=== PATIENT | male | born 1940 | race Caucasian/White ===

== ENCOUNTER 2016-07-07 15:03 | Inpatient (IN) | payer MEDICARE, OTHER ==
[~2016-07-07] VITALS: Ht 160 cm; Wt 82.4 kg
[~2016-07-07 15:03] MED LIST: ASPI-664 PO; BICS PO; CALC0.255 PO; FER325 PO; LANT3I SC; LEVO25TA9 PO; PRAV10TA43 PO; SITA25TA3 PO; TERA5CAP3 PO
[2016-07-07 16:47] VITALS: Ht 160 cm; Wt 82.4 kg
[2016-07-07 16:58] VITALS: BP 113/53; PULSE 64; RESP 20
[2016-07-07] MEDS ORDERED: FER325 PO (17:05)
[2016-07-07] MEDS ORDERED: AMIO200T2 PO (17:05)
[2016-07-07] MEDS ORDERED: APIX2.5T PO (17:05)
[2016-07-07] MEDS ORDERED: FURO40TA4 PO (17:05)
[2016-07-07 19:46] VITALS: BP 112/53; RESP 18
--- NOTE | 2016-07-07 19:51 | QN ---
Documentation Comment [id number] DARA CAVANAUGH MD Jul 07, 2016 19:51
[2016-07-07 20:23] LABS: INR 1.7; PROTIME 20.1 Sec (12.2-14.2); PT RATIO 1.6
[2016-07-07 20:24] LABS: PARTIAL THROMBOPLASTIN TIME 45.2 Sec (25.0-35.0)
[2016-07-07 20:25] LABS: ALBUMIN 3.4 g/dl (3.3-4.9)
[2016-07-07 20:28] LABS: BILIRUBIN,INDIRECT 0.3 mg/dl (0-1.1); BILIRUBIN,TOTAL 0.3 mg/dl (0.2-1.3); CREATININE 4.09 mg/dl (0.61-1.24)
[2016-07-07 20:29] LABS: ALBUMIN/GLOBULIN RATIO 0.89; CALCIUM 8.1 mg/dl (8.4-10.2); TOTAL PROTEIN 7.2 g/dl (6.1-8.1)
[2016-07-07 20:32] LABS: C-REACTIVE PROTEIN 3.9 mg/dl (0.0-0.9)
--- NOTE | 2016-07-07 20:34 | HP ---
DATE OF ADMISSION: 07/07/2016 HISTORY OF PRESENT ILLNESS: Mr. Mateo Orr was seen in the [facility] and noted to have a left leg wound and right toe infection. The patient is being admitted for soft tissue infection on the left leg. PAST MEDICAL HISTORY: Positive for diabetes mellitus, hypertension, CKD, AICD device placement, anemia, dyslipidemia, noncompliance. The patient's other history includes the patient has history of history of CAD, history of PVD. ALLERGY HISTORY: NEGATIVE. FAMILY HISTORY: Negative. SOCIAL HISTORY: Negative. MEDICATION HISTORY: At home, patient is at home is on: 1. Amiodarone. 2. Apixaban. 3. Aspirin. 4. Calcitriol. 5. Iron. 6. mvi 7. Lasix. 8. Insulin. 9. Levothyroxine. 10. Pravachol. 11. Januvia. 12. Terazosin. REVIEW OF SYSTEMS: HEENT: Unremarkable. RESPIRATORY: Unremarkable. CARDIOVASCULAR: Unremarkable. ABDOMEN: Unremarkable. EXTREMITIES: As mentioned above. CENTRAL NERVOUS SYSTEM: Unremarkable. PHYSICAL EXAMINATION: GENERAL: The patient is an overweight male, awake, alert. VITAL SIGNS: Pulse 60, blood pressure 120/53. HEAD: Atraumatic, normocephalic. Pupils equal, reactive to light. NECK: Supple. No JVD. LUNGS: Clear. CARDIOVASCULAR: S1, S2 are normal. ABDOMEN: Soft, nontender. Bowel sounds positive. No palpable mass or hepatosplenomegaly. Obesity noted. EXTREMITIES: The patient has dry gangrene of the right foot toe noted. The patient has a left leg wound noted. The patient has hyperpigmentation of the left leg. LABORATORY DATA: Not available from this admission. IMPRESSION: 1. Left leg wound. 2. Hypertension. 3. Diabetes mellitus. 4. Chronic kidney disease. 5. Coronary artery disease. 6. Atherosclerotic heart disease. 7. Dyslipidemia. 8. Obesity. 9. Peripheral vascular disease. 10. Noncompliance. PLAN: To continue diabetic, renal diet. Sliding scale. Continue home medications. The patient will also have antibiotics. Orders were done. Dictated By: DARA CAVANAUGH MD BS/NTS Conf#: [id number] DID#: [id number] [facility]
[2016-07-07] MEDS: INSULIN ASPART [NOVOLOG] 3 ML PEN SC SCH (21:00)
[2016-07-07] MEDS: LINAGLIPTIN 5 MG TABLET PO SCH (21:45)
[2016-07-07] MEDS: APIXABAN 5 MG TABLET PO SCH (21:46)
[2016-07-07] MEDS: FERROUS SULFATE (EC) 325 MG TAB PO SCH (21:46)
[2016-07-07] MEDS: TERAZOSIN 5 MG CAP PO SCH (21:47)
[2016-07-07] MEDS: FUROSEMIDE 40 MG TAB PO SCH (21:47)
[2016-07-07] MEDS: ATORVASTATIN 10 MG TAB PO SCH (21:48)
[2016-07-07] MEDS: ACCUCHECK XX SCH (21:48)
[2016-07-07 23:02] LABS: ADD UMIC YES; URINE BILIRUBIN (Dip) NEGATIVE (NEGATIVE); URINE BLOOD (Dip) 1+ (NEGATIVE); URINE COLOR LT. YELLOW (YELLOW); URINE GLUCOSE (Dip) NEGATIVE (NEGATIVE); URINE KETONES (Dip) NEGATIVE (NEGATIVE); URINE LEUKOCYTE ESTERASE (Dip) 3+ (NEGATIVE); URINE NITRITE (Dip) NEGATIVE (NEGATIVE); URINE TOTAL PROTEIN (Dip) NEGATIVE (NEGATIVE); URINE UROBILINOGEN (Dip) 0.2 E.U./dL (0.1-1.0)
[2016-07-08] MEDS ORDERED: PIPER-TAZO 3.375 GM IV (PMX) 100 ML IVPB SCH
[2016-07-08] MEDS: PIPER-TAZO 2.25 GM (PMX) 50 ML IVPB SCH ×4 (00:07→21:22)
[2016-07-08 00:18] LABS: RED BLOOD COUNT 1.69 10^6/ul (4.70-6.10); UNCORRECTED WBC 3.8 10^3/ul (4.8-10.8); WHITE BLOOD COUNT 3.8 10^3/ul (4.8-10.8)
[2016-07-08 00:19] LABS: HEMOGLOBIN 5.8 g/dl (14.0-18.0)
[2016-07-08 00:20] LABS: HEMATOCRIT 17.6 % (42.0-52.0); MEAN CORPUSCULAR HEMOGLOBIN 34.3 pg (29.0-33.0); MEAN CORPUSCULAR VOLUME 104.1 fl (82.0-101.0)
[2016-07-08 00:21] LABS: BASOPHILS % 0.5 % (0.0-2.0); EOSINOPHILS # 0.3 10^3/ul (0.0-0.5); EOSINOPHILS % 7.4 % (0.0-7.0); LYMPHOCYTES # 0.7 10^3/ul (0.8-2.9); LYMPHOCYTES % 18.4 % (15.0-51.0); MEAN PLATELET VOLUME 10.2 fl (7.4-10.4); MONOCYTE # 0.2 10^3/ul (0.3-0.9); MONOCYTES % 5.8 % (0.0-11.0); NEUTROPHIL # 2.6 10^3/ul (1.6-7.5); NEUTROPHILS % 67.4 % (39.0-77.0); PLATELET COUNT 91 10^3/UL (140-440); RED CELL DISTRIBUTION WIDTH 14.9 % (11.5-14.5)
[2016-07-08] MEDS ORDERED: ACCUCHECK XX SCH (02:00)
[2016-07-08 07:53] VITALS: BP 112/56; RESP 20
[2016-07-08 07:55] VITALS: BP 112/59; PULSE 64; RESP 18
[2016-07-08] MEDS: INSULIN ASPART [NOVOLOG] 3 ML PEN SC SCH ×4 (08:00→20:24)
--- NOTE | 2016-07-08 08:16 | RADRPT ---
PROCEDURE: Tibia-fibula x-ray CLINICAL INDICATION: Cellulitis.. TECHNIQUE: AP and lateral views of the left tibia and fibula. COMPARISON: 06/23/2019 FINDINGS: No evidence of fracture or dislocation. The bones are normal mineralization no cortical destruction . No radiopaque foreign body or subcutaneous gas. Unremarkable. IMPRESSION: No fracture or dislocation. No radiopaque foreign body. RPTAT:AAJJ Physician Sisi Date Time Electronically viewed and signed by Stevo Lacey Physician on 07/08/2016 08:16 LAUREN/
[2016-07-08 08:45] VITALS: BP 121/57; PULSE 68; RESP 19
[2016-07-08] MEDS ORDERED: GLUCOSE GEL 15 GRAM TUBE BUCCAL PRN (09:30)
[2016-07-08] MEDS ORDERED: GLUCOSE GEL 15 GRAM TUBE PO PRN ×2 (09:30)
[2016-07-08] MEDS ORDERED: DEXTROSE 50% 50 ML SYRINGE IV PRN (09:30)
[2016-07-08] MEDS ORDERED: GLUCAGON 1 MG INJ IM PRN (09:30)
[2016-07-08 09:45] VITALS: BP 120/61; PULSE 68; RESP 18
[2016-07-08] MEDS: AMIODARONE 200 MG TAB PO SCH (09:55)
[2016-07-08] MEDS: APIXABAN 5 MG TABLET PO SCH ×2 (09:55→21:17)
[2016-07-08] MEDS: LEVOTHYROXINE 25 MCG TAB PO SCH (09:55)
[2016-07-08] MEDS: CALCITRIOL 0.25 MCG CAP PO SCH (09:55)
[2016-07-08] MEDS: FERROUS SULFATE (EC) 325 MG TAB PO SCH ×2 (09:55→21:18)
[2016-07-08] MEDS: LINAGLIPTIN 5 MG TABLET PO SCH (09:55)
[2016-07-08] MEDS: FUROSEMIDE 40 MG TAB PO SCH ×2 (09:56→21:18)
[2016-07-08] MEDS: COLLAGENASE 30 GM TUBE TOP SCH (09:56)
[2016-07-08] MEDS: INSULIN GLARGINE [LANtus] 3 ML PEN SC SCH (09:59)
--- NOTE | 2016-07-08 13:55 | PN ---
Date/Time of Note Date/Time of Note DATE: 07/08/16 TIME: 13:54 Assessment/Plan VTE Prophylaxis VTE Prophylaxis Intervention: other Lines/Catheters [facility] Saline Lock Urinary Cath still in place: No Assessment/Plan Chief Complaint/Hosp Course IMPRESSION: 1. Left leg wound. 2. Hypertension. 3. Diabetes mellitus. 4. Chronic kidney disease.4 5. Coronary artery disease. 6. Atherosclerotic heart disease. 7. Dyslipidemia. 8. Obesity. 9. Peripheral vascular disease. 10. Noncompliance. 11 anemia plan prbc antibiotic Problems: Subjective 24 Hr Interval Summary ENT: no complaints Respiratory: no complaints Gastrointestinal: no complaints Genitourinary: no complaints Exam/Review of Systems Vital Signs Vitals Vital Signs Date Time Temp Pulse Resp B/P Pulse Ox O2 Delivery O2 Flow Rate FiO2 07/08/16 09:45 98.2 68 18 120/61 99 Room Air Intake and Output 07/07/16 07/07/16 07/08/16 15:00 23:00 07:00 Intake Total 1000 ml Output Total 650 ml Balance 350 ml Exam Neck: supple Respiratory: clear to auscultation Cardiovascular: regular rate and rhythm Gastrointestinal: soft Skin: other (leg wound+) Results Result Diagram: 07/07/16214407/07/161950 Results 24 hrs Laboratory Tests Test 07/07/16 19:31 07/07/16 19:51 07/07/16 21:45 07/07/16 22:10 Bedside Glucose 102 Activated Partial Thromboplast Time 45.2 H Alanine Aminotransferase (ALT/SGPT) 21 Albumin 3.4 Albumin/Globulin Ratio 0.89 Alkaline Phosphatase 142 H Anion Gap 17 H Aspartate Amino Transf (AST/SGOT) 21 Blood Urea Nitrogen 64 H C-Reactive Protein 3.9 H Calcium Level 8.1 L Carbon Dioxide Level 24 Chloride Level 101 Creatinine 4.09 H Direct Bilirubin 0.00 Globulin 3.80 H Glucose Level 83 INR International Normalized Ratio 1.70 Indirect Bilirubin 0.3 Potassium Level 4.0 Prothrombin Time 20.1 H Prothrombin Time Ratio 1.6 Sodium Level 138 Total Bilirubin 0.3 Total Protein 7.2 Basophils # 0.0 Basophils % 0.5 Eosinophils # 0.3 Eosinophils % 7.4 H Erythrocyte Sedimentation Rate 130 H Hematocrit 17.6 #L Hemoglobin 5.8 #*L Hemoglobin A1c Lymphocytes # 0.7 L Lymphocytes % 18.4 Mean Corpuscular Hemoglobin 34.3 H Mean Corpuscular Hemoglobin Concent 33.0 Mean Corpuscular Volume 104.1 H Mean Platelet Volume 10.2 Monocytes # 0.2 L Monocytes % 5.8 Neutrophils # 2.6 Neutrophils % 67.4 Nucleated Red Blood Cells # 0.0 Nucleated Red Blood Cells % 0.0 Platelet Count 91 #L Red Blood Count 1.69 #L Red Cell Distribution Width 14.9 #H White Blood Count 3.8 #L Urine Bilirubin NEGATIVE Urine Clarity CLEAR Urine Color LT. YELLOW Urine Glucose NEGATIVE Urine Hemoglobin 1+ H Urine Ketones NEGATIVE Urine Leukocyte Esterase 3+ H Urine Microscopic RBC 5-10 Urine Microscopic WBC >200 Urine Nitrite NEGATIVE Urine Specific [place] 1.010 Urine Total Protein NEGATIVE Urine Urobilinogen 0.2 E.U./dL Urine pH 5.5 Test 07/08/16 08:07 07/08/16 08:42 07/08/16 09:07 07/08/16 11:44 Bedside Glucose 66 L 84 142 87 Medications Medications Current Medications Collagenase (Santyl) 1 applic DAILY TOP Last administered on 07/08/16 09:56; Admin Dose 1 APPLIC; Start 07/08/16 at 09:00 Amiodarone HCl (Cordarone) 200 mg DAILY PO Last administered on 07/08/16 09:55 ; Admin Dose 200 MG; Start 07/08/16 at 09:00 Apixaban (Eliquis) 2.5 mg BID PO Last administered on 07/08/16 09:55; Admin Dose 2.5 MG; Start 07/07/16 at 21:00 Calcitriol (Rocaltrol) 0.25 mcg DAILY PO Last administered on 07/08/16 09:55; Admin Dose 0.25 MCG; Start 07/08/16 at 09:00 Ferrous Sulfate (Ferrous Sulfate (Ec)) 325 mg BID PO Last administered on 09:55; Admin Dose 325 MG; Start 07/07/16 at 21:00 Furosemide (Lasix) 40 mg BID PO Last administered on 07/08/16 09:56; Admin Dose 40 MG; Start 07/07/16 at 21:00 Insulin Glargine (Lantus) 20 unit QAM SC Last administered on 07/08/16 09:59; Admin Dose 20 UNIT; Start 07/08/16 at 09:00 Levothyroxine Sodium (Synthroid) 25 mcg DAILY PO Last administered on 09:55; Admin Dose 25 MCG; Start 07/08/16 at 09:00 Terazosin HCl (Hytrin) 5 mg HS PO Last administered on 07/07/16 21:47; Admin Dose 5 MG; Start 07/07/16 at 21:00 Atorvastatin Calcium (Lipitor) 10 mg DAILY@21 PO Last administered on 21:48; Admin Dose 10 MG; Start 07/07/16 at 21:00 Linagliptin (Tradjenta) 5 mg DAILY PO Last administered on 07/08/16 09:55; Admin Dose 5 MG; Start 07/07/16 at 19:30 Diagnostic Test (Pha) (Accucheck) 1 ea 02 XX ; Start 07/08/16 at 02:00 Miscellaneous Information 1 ea NOTE XX ; Start 07/08/16 at 09:30 Glucose (Glutose) 15 gm Q15M PRN PO DECREASED GLUCOSE; Start 07/08/16 at 09:30 Glucose (Glutose) 22.5 gm Q15M PRN PO DECREASED GLUCOSE; Start 07/08/16 at 09: 30 Dextrose (D50w Syringe) 25 ml Q15M PRN IV DECREASED GLUCOSE; Start 07/08/16 at 09:30 Dextrose (D50w Syringe) 50 ml Q15M PRN IV DECREASED GLUCOSE; Start 07/08/16 at 09:30 Glucagon (Glucagen) 1 mg Q15M PRN IM DECREASED GLUCOSE; Start 07/08/16 at 09:30 Glucose 15 gm 15 gm Q15M PRN BUCCAL DECREASED GLUCOSE; Start 07/08/16 at 09:30 Piperacillin Sod/ Tazobactam Sod (Zosyn 2.25gm/ 50ml (Pmx)) 50 ml @ 100 mls/hr Q8 IVPB ; Start 07/08/16 at 14:00 DARA CAVANAUGH MD Jul 08, 2016 13:55
[2016-07-08 15:48] LABS: BASOPHILS % 0.4 % (0.0-2.0); EOSINOPHILS # 0.2 10^3/ul (0.0-0.5); EOSINOPHILS % 5.6 % (0.0-7.0); HEMOGLOBIN 7.7 g/dl (14.0-18.0); LYMPHOCYTES # 0.5 10^3/ul (0.8-2.9); LYMPHOCYTES % 12.7 % (15.0-51.0); MEAN CORPUSCULAR HEMOGLOBIN 33.5 pg (29.0-33.0); MEAN CORPUSCULAR HGB CONC 34.9 g/dl (32.0-37.0); MEAN CORPUSCULAR VOLUME 96.1 fl (82.0-101.0); MEAN PLATELET VOLUME 6.5 fl (7.4-10.4); MONOCYTE # 0.2 10^3/ul (0.3-0.9); MONOCYTES % 5.6 % (0.0-11.0); NEUTROPHIL # 3.1 10^3/ul (1.6-7.5); NEUTROPHILS % 75.7 % (39.0-77.0); PLATELET COUNT 96 10^3/UL (140-440); RED BLOOD COUNT 2.29 10^6/ul (4.70-6.10); RED CELL DISTRIBUTION WIDTH 17.6 % (11.5-14.5)
[2016-07-08 15:51] LABS: CONDITION 1; LH ANALYZER COMMENTS 1
[2016-07-08 15:59] LABS: POTASSIUM 4.2 mmol/L (3.5-5.1)
[2016-07-08 16:02] LABS: CREATININE 3.86 mg/dl (0.61-1.24)
[2016-07-08 16:22] LABS: OVALOCYTES 2+; PLATELET ESTIMATE PLT APPEAR DECREASED
[2016-07-08 20:20] VITALS: BP 120/60; RESP 19
[2016-07-08] MEDS: ATORVASTATIN 10 MG TAB PO SCH (21:17)
[2016-07-08] MEDS: TERAZOSIN 5 MG CAP PO SCH (21:22)
--- NOTE | 2016-07-08 23:45 | CONS ---
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 Patient will be monitored in-house. Thank you very much for the consultation. Consultation Date/Type/Reason Admit Date/Time Jul 07, 2016 at 16:07 Hx of Present Illness Thank you very much for involving me in the care of this patient. As you very well know this is a male patient who has multiple medical problems including diabetes mellitus, hypertension, CKD, anemia, dyslipidemia and apparently is noncompliant with his diabetes who has been admitted to the hospital with soft tissue infection of his left leg. I have been consulted to evaluate the left lower extremity. Patient is normally seen and followed at the amputation prevention clinic and was found to have left leg wound and right toe infection. ENT: no complaints Respiratory: no complaints Gastrointestinal: no complaints Genitourinary: no complaints Past Medical History As per history of present illness. Past Surgical History As per history of present illness. Social History As per history of present illness. Smoking Status: Never smoker Exam/Review of Systems Vital Signs Vitals Vital Signs Date Time Temp Pulse Resp B/P Pulse Ox O2 Delivery O2 Flow Rate FiO2 07/08/16 20:20 98.5 66 19 120/60 98 07/08/16 09:45 Room Air Intake and Output 07/07/16 07/07/16 07/08/16 15:00 23:00 07:00 Intake Total 1000 ml Output Total 650 ml Balance 350 ml Exam Patient is no acute distress laying supine in bed. Left lower extremity cellulitis and open wound present. There is malodor present. Edema noted with erythema of the leg. Decreased sensation to sharp dull vibratory and temperature stimuli. Labs and imaging was reviewed. Results Result Diagram: 07/08/16 1536 07/08/16 1536 Results 24 hrs Laboratory Tests Test 07/08/16 08:07 07/08/16 08:42 07/08/16 09:07 07/08/16 11:44 Bedside Glucose 66 L 84 142 87 Test 07/08/16 15:36 07/08/16 16:56 07/08/16 20:08 Anion Gap 17 H Basophils # 0.0 Basophils % 0.4 Blood Morphology Comment Blood Urea Nitrogen 64 H Calcium Level 8.0 L Carbon Dioxide Level 24 Chloride Level 101 Creatinine 3.86 H Differential Comment AUTO w/SCAN Eosinophils # 0.2 Eosinophils % 5.6 Glucose Level 74 Hematocrit 22.0 #L Hemoglobin 7.7 #L Lymphocytes # 0.5 L Lymphocytes % 12.7 L Mean Corpuscular Hemoglobin 33.5 H Mean Corpuscular Hemoglobin Concent 34.9 Mean Corpuscular Volume 96.1 Mean Platelet Volume 6.5 #L Monocytes # 0.2 L Monocytes % 5.6 Neutrophils # 3.1 Neutrophils % 75.7 Nucleated Red Blood Cells # 0.0 Nucleated Red Blood Cells % 0.0 Ovalocytes 2+ Platelet Count 96 L Platelet Estimate PLT APPEAR DECREASED Potassium Level 4.2 Red Blood Count 2.29 #L Red Cell Distribution Width 17.6 H Sodium Level 138 White Blood Count 4.0 L Bedside Glucose 75 104 Medications Medications Current Medications Collagenase (Santyl) 1 applic DAILY TOP Last administered on 07/08/16 09:56; Admin Dose 1 APPLIC; Start 07/08/16 at 09:00 Amiodarone HCl (Cordarone) 200 mg DAILY PO Last administered on 07/08/16 09:55 ; Admin Dose 200 MG; Start 07/08/16 at 09:00 Apixaban (Eliquis) 2.5 mg BID PO Last administered on 07/08/16 21:17; Admin Dose 2.5 MG; Start 07/07/16 at 21:00 Calcitriol (Rocaltrol) 0.25 mcg DAILY PO Last administered on 07/08/16 09:55; Admin Dose 0.25 MCG; Start 07/08/16 at 09:00 Ferrous Sulfate (Ferrous Sulfate (Ec)) 325 mg BID PO Last administered on 21:18; Admin Dose 325 MG; Start 07/07/16 at 21:00 Furosemide (Lasix) 40 mg BID PO Last administered on 07/08/16 21:18; Admin Dose 40 MG; Start 07/07/16 at 21:00 Insulin Glargine (Lantus) 20 unit QAM SC Last administered on 07/08/16 09:59; Admin Dose 20 UNIT; Start 07/08/16 at 09:00 Levothyroxine Sodium (Synthroid) 25 mcg DAILY PO Last administered on 09:55; Admin Dose 25 MCG; Start 07/08/16 at 09:00 Terazosin HCl (Hytrin) 5 mg HS PO Last administered on 07/08/16 21:22; Admin Dose 5 MG; Start 07/07/16 at 21:00 Atorvastatin Calcium (Lipitor) 10 mg DAILY@21 PO Last administered on 21:17; Admin Dose 10 MG; Start 07/07/16 at 21:00 Linagliptin (Tradjenta) 5 mg DAILY PO Last administered on 07/08/16 09:55; Admin Dose 5 MG; Start 07/07/16 at 19:30 Diagnostic Test (Pha) (Accucheck) 1 ea 02 XX ; Start 07/08/16 at 02:00 Miscellaneous Information 1 ea NOTE XX ; Start 07/08/16 at 09:30 Glucose (Glutose) 15 gm Q15M PRN PO DECREASED GLUCOSE; Start 07/08/16 at 09:30 Glucose (Glutose) 22.5 gm Q15M PRN PO DECREASED GLUCOSE; Start 07/08/16 at 09: 30 Dextrose (D50w Syringe) 25 ml Q15M PRN IV DECREASED GLUCOSE; Start 07/08/16 at 09:30 Dextrose (D50w Syringe) 50 ml Q15M PRN IV DECREASED GLUCOSE; Start 07/08/16 at 09:30 Glucagon (Glucagen) 1 mg Q15M PRN IM DECREASED GLUCOSE; Start 07/08/16 at 09:30 Glucose 15 gm 15 gm Q15M PRN BUCCAL DECREASED GLUCOSE; Start 07/08/16 at 09:30 Piperacillin Sod/ Tazobactam Sod (Zosyn 2.25gm/ 50ml (Pmx)) 50 ml @ 100 mls/hr Q8 IVPB Last administered on 07/08/16 21:22; Admin Dose 100 MLS/HR; Start at 14:00 SHONDA TOLEDO DPM Jul 08, 2016 23:45
[2016-07-09] MEDS: ACCUCHECK XX SCH (02:59)
[2016-07-09] MEDS: PIPER-TAZO 2.25 GM (PMX) 50 ML IVPB SCH ×3 (05:47→21:04)
[2016-07-09 05:51] LABS: BASOPHILS % 0.5 % (0.0-2.0); EOSINOPHILS # 0.1 10^3/ul (0.0-0.5); EOSINOPHILS % 2.4 % (0.0-7.0); HEMATOCRIT 22.7 % (42.0-52.0); HEMOGLOBIN 7.9 g/dl (14.0-18.0); LYMPHOCYTES # 0.4 10^3/ul (0.8-2.9); LYMPHOCYTES % 10.8 % (15.0-51.0); MEAN CORPUSCULAR HEMOGLOBIN 33.7 pg (29.0-33.0); MEAN CORPUSCULAR HGB CONC 34.9 g/dl (32.0-37.0); MEAN CORPUSCULAR VOLUME 96.5 fl (82.0-101.0); MEAN PLATELET VOLUME 7.6 fl (7.4-10.4); MONOCYTE # 0.2 10^3/ul (0.3-0.9); MONOCYTES % 4.8 % (0.0-11.0); NEUTROPHIL # 3.2 10^3/ul (1.6-7.5); NEUTROPHILS % 81.5 % (39.0-77.0); PLATELET COUNT 90 10^3/UL (140-440); RED BLOOD COUNT 2.35 10^6/ul (4.70-6.10); RED CELL DISTRIBUTION WIDTH 17.6 % (11.5-14.5)
[2016-07-09 06:10] LABS: CONDITION 1; LH ANALYZER COMMENTS 1
[2016-07-09 06:10] LABS: ALBUMIN 3.5 g/dl (3.3-4.9)
[2016-07-09 06:11] LABS: POTASSIUM 3.7 mmol/L (3.5-5.1)
[2016-07-09 06:13] LABS: ALBUMIN/GLOBULIN RATIO 0.97; BILIRUBIN,INDIRECT 0.4 mg/dl (0-1.1); BILIRUBIN,TOTAL 0.4 mg/dl (0.2-1.3); CALCIUM 8.3 mg/dl (8.4-10.2); CREATININE 3.94 mg/dl (0.61-1.24); TOTAL PROTEIN 7.1 g/dl (6.1-8.1)
[2016-07-09 07:50] VITALS: BP 112/58; RESP 20
[2016-07-09] MEDS: INSULIN ASPART [NOVOLOG] 3 ML PEN SC SCH ×4 (08:00→20:56)
[2016-07-09] MEDS: LINAGLIPTIN 5 MG TABLET PO SCH (08:41)
[2016-07-09] MEDS: FERROUS SULFATE (EC) 325 MG TAB PO SCH ×2 (08:41→20:48)
[2016-07-09] MEDS: LEVOTHYROXINE 25 MCG TAB PO SCH (08:41)
[2016-07-09] MEDS: CALCITRIOL 0.25 MCG CAP PO SCH (08:41)
[2016-07-09] MEDS: FUROSEMIDE 40 MG TAB PO SCH ×2 (08:42→20:48)
[2016-07-09] MEDS: APIXABAN 5 MG TABLET PO SCH ×2 (08:42→20:44)
[2016-07-09] MEDS: AMIODARONE 200 MG TAB PO SCH (08:42)
[2016-07-09] MEDS: INSULIN GLARGINE [LANtus] 3 ML PEN SC SCH ×2 (08:43→09:00)
[2016-07-09] MEDS: COLLAGENASE 30 GM TUBE TOP SCH (15:20)
--- NOTE | 2016-07-09 16:38 | PN ---
Date/Time of Note Date/Time of Note DATE: 07/09/16 TIME: 16:36 Assessment/Plan VTE Prophylaxis VTE Prophylaxis Intervention: other Lines/Catheters IV C[facility] Type (from [facility] Saline Lock Urinary Cath still in place: No Assessment/Plan Chief Complaint/Hosp Course IMPRESSION: 1. Left leg wound. 2. Hypertension. 3. Diabetes mellitus. 4. Chronic kidney disease.4 5. Coronary artery disease. 6. Atherosclerotic heart disease. 7. Dyslipidemia. 8. Obesity. 9. Peripheral vascular disease. 10. Noncompliance. [address] xie antibiotic refused hd Problems: Subjective 24 Hr Interval Summary Cardiovascular: no complaints Gastrointestinal: no complaints Exam/Review of Systems Vital Signs Vitals Vital Signs Date Time Temp Pulse Resp B/P Pulse Ox O2 Delivery O2 Flow Rate FiO2 07/09/16 07:50 98.6 64 20 112/58 98 07/08/16 09:45 Room Air Intake and Output 07/08/16 07/08/16 07/09/16 15:00 23:00 07:00 Intake Total 1410 ml 1080 ml Output Total 1000 ml 1120 ml Balance 410 ml -40 ml Exam Neck: supple Respiratory: clear to auscultation Cardiovascular: regular rate and rhythm Gastrointestinal: soft Musculoskeletal: nl extremities to inspection Results Result Diagram: 07/09/16 0456 07/09/16 0450 Results 24 hrs Laboratory Tests Test 07/08/16 16:56 07/08/16 20:08 07/09/16 02:50 07/09/16 03:08 Bedside Glucose 75 104 52 L 54 L Test 07/09/16 03:27 07/09/16 03:49 07/09/16 04:14 07/09/16 04:40 Bedside Glucose 59 L 65 L 118 150 Test 07/09/16 04:50 07/09/16 04:56 07/09/16 07:50 07/09/16 11:40 Alanine Aminotransferase (ALT/SGPT) 22 Albumin 3.5 Albumin/Globulin Ratio 0.97 Alkaline Phosphatase 132 H Anion Gap 19 H Aspartate Amino Transf (AST/SGOT) 21 Blood Urea Nitrogen 61 H Calcium Level 8.3 L Carbon Dioxide Level 23 Chloride Level 102 Creatinine 3.94 H Direct Bilirubin 0.00 Globulin 3.60 H Glucose Level 99 Indirect Bilirubin 0.4 Potassium Level 3.7 Sodium Level 140 Total Bilirubin 0.4 Total Protein 7.1 Basophils # 0.0 Basophils % 0.5 Blood Morphology Comment Differential Comment AUTO w/SCAN Eosinophils # 0.1 Eosinophils % 2.4 Hematocrit 22.7 L Hemoglobin 7.9 L Lymphocytes # 0.4 L Lymphocytes % 10.8 L Mean Corpuscular Hemoglobin 33.7 H Mean Corpuscular Hemoglobin Concent 34.9 Mean Corpuscular Volume 96.5 Mean Platelet Volume 7.6 Monocytes # 0.2 L Monocytes % 4.8 Neutrophils # 3.2 Neutrophils % 81.5 H Nucleated Red Blood Cells # 0.0 Nucleated Red Blood Cells % 0.0 Platelet Count 90 L Red Blood Count 2.35 L Red Cell Distribution Width 17.6 H White Blood Count 4.0 L Bedside Glucose 140 92 Medications Medications Current Medications Collagenase (Santyl) 1 applic DAILY TOP Last administered on 07/09/16 15:20; Admin Dose 1 APPLIC; Start 07/08/16 at 09:00 Amiodarone HCl (Cordarone) 200 mg DAILY PO Last administered on 07/09/16 08:42 ; Admin Dose 200 MG; Start 07/08/16 at 09:00 Apixaban (Eliquis) 2.5 mg BID PO Last administered on 07/09/16 08:42; Admin Dose 2.5 MG; Start 07/07/16 at 21:00 Calcitriol (Rocaltrol) 0.25 mcg DAILY PO Last administered on 07/09/16 08:41; Admin Dose 0.25 MCG; Start 07/08/16 at 09:00 Ferrous Sulfate (Ferrous Sulfate (Ec)) 325 mg BID PO Last administered on 08:41; Admin Dose 325 MG; Start 07/07/16 at 21:00 Furosemide (Lasix) 40 mg BID PO Last administered on 07/09/16 08:42; Admin Dose 40 MG; Start 07/07/16 at 21:00 Insulin Glargine (Lantus) 20 unit QAM SC Last administered on 07/08/16 09:59; Admin Dose 20 UNIT; Start 07/08/16 at 09:00 Levothyroxine Sodium (Synthroid) 25 mcg DAILY PO Last administered on 08:41; Admin Dose 25 MCG; Start 07/08/16 at 09:00 Terazosin HCl (Hytrin) 5 mg HS PO Last administered on 07/08/16 21:22; Admin Dose 5 MG; Start 07/07/16 at 21:00 Atorvastatin Calcium (Lipitor) 10 mg DAILY@21 PO Last administered on 21:17; Admin Dose 10 MG; Start 07/07/16 at 21:00 Linagliptin (Tradjenta) 5 mg DAILY PO Last administered on 07/09/16 08:41; Admin Dose 5 MG; Start 07/07/16 at 19:30 Diagnostic Test (Pha) (Accucheck) 1 ea 02 XX Last administered on 07/09/16 02: 59; Admin Dose 1 EA; Start 07/08/16 at 02:00 Miscellaneous Information 1 ea NOTE XX ; Start 07/08/16 at 09:30 Glucose (Glutose) 15 gm Q15M PRN PO DECREASED GLUCOSE; Start 07/08/16 at 09:30 Glucose (Glutose) 22.5 gm Q15M PRN PO DECREASED GLUCOSE; Start 07/08/16 at 09: 30 Dextrose (D50w Syringe) 25 ml Q15M PRN IV DECREASED GLUCOSE; Start 07/08/16 at 09:30 Dextrose (D50w Syringe) 50 ml Q15M PRN IV DECREASED GLUCOSE; Start 07/08/16 at 09:30 Glucagon (Glucagen) 1 mg Q15M PRN IM DECREASED GLUCOSE; Start 07/08/16 at 09:30 Glucose 15 gm 15 gm Q15M PRN BUCCAL DECREASED GLUCOSE; Start 07/08/16 at 09:30 Piperacillin Sod/ Tazobactam Sod (Zosyn 2.25gm/ 50ml (Pmx)) 50 ml @ 100 mls/hr Q8 IVPB Last administered on 07/09/16 15:00; Admin Dose 100 MLS/HR; Start at 14:00 DARA CAVANAUGH MD Jul 09, 2016 16:38
[2016-07-09 20:39] VITALS: BP 109/59; RESP 19
[2016-07-09] MEDS: ATORVASTATIN 10 MG TAB PO SCH (20:48)
[2016-07-09] MEDS: TERAZOSIN 5 MG CAP PO SCH (21:01)
[2016-07-10] MEDS: ACCUCHECK XX SCH (01:43)
[2016-07-10] MEDS: PIPER-TAZO 2.25 GM (PMX) 50 ML IVPB SCH ×3 (05:30→21:29)
[2016-07-10 06:33] LABS: BASOPHIL # 0.1 10^3/ul (0.0-0.1); BASOPHILS % 1.1 % (0.0-2.0); EOSINOPHILS # 0.3 10^3/ul (0.0-0.5); EOSINOPHILS % 5.6 % (0.0-7.0); HEMATOCRIT 21.4 % (42.0-52.0); HEMOGLOBIN 7.8 g/dl (14.0-18.0); LYMPHOCYTES # 0.6 10^3/ul (0.8-2.9); MEAN CORPUSCULAR HEMOGLOBIN 34.7 pg (29.0-33.0); MEAN CORPUSCULAR HGB CONC 36.4 g/dl (32.0-37.0); MEAN CORPUSCULAR VOLUME 95.2 fl (82.0-101.0); MONOCYTE # 0.3 10^3/ul (0.3-0.9); MONOCYTES % 5.7 % (0.0-11.0); NEUTROPHIL # 3.6 10^3/ul (1.6-7.5); NEUTROPHILS % 74.6 % (39.0-77.0); PLATELET COUNT 84 10^3/UL (140-440); RED BLOOD COUNT 2.25 10^6/ul (4.70-6.10); RED CELL DISTRIBUTION WIDTH 17.3 % (11.5-14.5); UNCORRECTED WBC 4.8 10^3/ul (4.8-10.8); WHITE BLOOD COUNT 4.8 10^3/ul (4.8-10.8)
[2016-07-10 06:37] LABS: CONDITION 1; LH ANALYZER COMMENTS 1
[2016-07-10 06:45] LABS: ALBUMIN 3.2 g/dl (3.3-4.9)
[2016-07-10 06:47] LABS: CREATININE 3.99 mg/dl (0.61-1.24)
[2016-07-10 06:48] LABS: ALBUMIN/GLOBULIN RATIO 0.91; BILIRUBIN,INDIRECT 0.4 mg/dl (0-1.1); BILIRUBIN,TOTAL 0.4 mg/dl (0.2-1.3); TOTAL PROTEIN 6.7 g/dl (6.1-8.1)
[2016-07-10 06:49] LABS: CALCIUM 8.2 mg/dl (8.4-10.2)
[2016-07-10] MEDS: INSULIN ASPART [NOVOLOG] 3 ML PEN SC SCH ×4 (08:00→20:05)
[2016-07-10 08:13] VITALS: BP 102/51; RESP 20
[2016-07-10] MEDS: LEVOTHYROXINE 25 MCG TAB PO SCH (08:13)
[2016-07-10] MEDS: INSULIN GLARGINE [LANtus] 3 ML PEN SC SCH ×2 (08:14→09:00)
[2016-07-10] MEDS: FERROUS SULFATE (EC) 325 MG TAB PO SCH ×2 (08:15→20:12)
[2016-07-10] MEDS: CALCITRIOL 0.25 MCG CAP PO SCH (08:15)
[2016-07-10] MEDS: LINAGLIPTIN 5 MG TABLET PO SCH (08:15)
[2016-07-10] MEDS: AMIODARONE 200 MG TAB PO SCH (08:15)
[2016-07-10] MEDS: APIXABAN 5 MG TABLET PO SCH ×2 (08:15→20:12)
[2016-07-10] MEDS: FUROSEMIDE 40 MG TAB PO SCH ×2 (08:16→20:12)
[2016-07-10] MEDS: COLLAGENASE 30 GM TUBE TOP SCH (08:16)
--- NOTE | 2016-07-10 09:20 | PN ---
Date/Time of Note Date/Time of Note DATE: 07/10/16 TIME: 09:20 Assessment/Plan VTE Prophylaxis VTE Prophylaxis Intervention: other Lines/Catheters [facility] Saline Lock Urinary Cath still in place: No Assessment/Plan Chief Complaint/Hosp Course IMPRESSION: 1. Left leg wound. 2. Hypertension. 3. Diabetes mellitus. 4. Chronic kidney disease.4 5. Coronary artery disease. 6. Atherosclerotic heart disease. 7. Dyslipidemia. 8. Obesity. 9. Peripheral vascular disease. 10. Noncompliance. [address] xie antibiotic refused hd Problems: Subjective 24 Hr Interval Summary Constitutional: No chills Respiratory: no complaints Cardiovascular: no complaints Exam/Review of Systems Vital Signs Vitals Vital Signs Date Time Temp Pulse Resp B/P Pulse Ox O2 Delivery O2 Flow Rate FiO2 07/10/16 08:13 98.7 65 20 102/51 98 07/08/16 09:45 Room Air Intake and Output 07/09/16 07/09/16 07/10/16 15:00 23:00 07:00 Intake Total 700 ml 250 ml Output Total 200 ml 700 ml Balance 500 ml -450 ml Exam Respiratory: clear to auscultation Cardiovascular: regular rate and rhythm Gastrointestinal: soft Musculoskeletal: nl extremities to inspection Results Result Diagram: 07/10/16 0515 07/10/16 0515 Results 24 hrs Laboratory Tests Test 07/09/16 11:40 07/09/16 16:47 07/09/16 20:51 07/10/16 05:15 Bedside Glucose 92 87 112 Alanine Aminotransferase (ALT/SGPT) 22 Albumin 3.2 L Albumin/Globulin Ratio 0.91 Alkaline Phosphatase 118 Anion Gap 19 H Aspartate Amino Transf (AST/SGOT) 20 Basophils # 0.1 Basophils % 1.1 Blood Morphology Comment Blood Urea Nitrogen 60 H Calcium Level 8.2 L Carbon Dioxide Level 23 Chloride Level 103 Creatinine 3.99 H Direct Bilirubin 0.00 Eosinophils # 0.3 Eosinophils % 5.6 Globulin 3.50 H Glucose Level 58 #L Hematocrit 21.4 L Hemoglobin 7.8 L Indirect Bilirubin 0.4 Lymphocytes # 0.6 L Lymphocytes % 13.0 L Mean Corpuscular Hemoglobin 34.7 H Mean Corpuscular Hemoglobin Concent 36.4 Mean Corpuscular Volume 95.2 Mean Platelet Volume 8.0 Monocytes # 0.3 Monocytes % 5.7 Neutrophils # 3.6 Neutrophils % 74.6 Nucleated Red Blood Cells # 0.0 Nucleated Red Blood Cells % 0.0 Platelet Count 84 L Potassium Level 4.0 Red Blood Count 2.25 L Red Cell Distribution Width 17.3 H Sodium Level 141 Total Bilirubin 0.4 Total Protein 6.7 White Blood Count 4.8 Test 07/10/16 07:18 07/10/16 08:51 Bedside Glucose 107 104 Medications Medications Current Medications Collagenase (Santyl) 1 applic DAILY TOP Last administered on 07/10/16 08:16; Admin Dose 1 APPLIC; Start 07/08/16 at 09:00 Amiodarone HCl (Cordarone) 200 mg DAILY PO Last administered on 07/10/16 08:15 ; Admin Dose 200 MG; Start 07/08/16 at 09:00 Apixaban (Eliquis) 2.5 mg BID PO Last administered on 07/10/16 08:15; Admin Dose 2.5 MG; Start 07/07/16 at 21:00 Calcitriol (Rocaltrol) 0.25 mcg DAILY PO Last administered on 07/10/16 08:15; Admin Dose 0.25 MCG; Start 07/08/16 at 09:00 Ferrous Sulfate (Ferrous Sulfate (Ec)) 325 mg BID PO Last administered on 08:15; Admin Dose 325 MG; Start 07/07/16 at 21:00 Furosemide (Lasix) 40 mg BID PO Last administered on 07/10/16 08:16; Admin Dose 40 MG; Start 07/07/16 at 21:00 Insulin Glargine (Lantus) 20 unit QAM SC Last administered on 07/10/16 08:14; Admin Dose 20 UNIT; Start 07/08/16 at 09:00 Levothyroxine Sodium (Synthroid) 25 mcg DAILY PO Last administered on 08:13; Admin Dose 25 MCG; Start 07/08/16 at 09:00 Terazosin HCl (Hytrin) 5 mg HS PO Last administered on 07/09/16 21:01; Admin Dose 5 MG; Start 07/07/16 at 21:00 Atorvastatin Calcium (Lipitor) 10 mg DAILY@21 PO Last administered on 20:48; Admin Dose 10 MG; Start 07/07/16 at 21:00 Linagliptin (Tradjenta) 5 mg DAILY PO Last administered on 07/10/16 08:15; Admin Dose 5 MG; Start 07/07/16 at 19:30 Diagnostic Test (Pha) (Accucheck) 1 ea 02 XX Last administered on 07/09/16 02: 59; Admin Dose 1 EA; Start 07/08/16 at 02:00 Miscellaneous Information 1 ea NOTE XX ; Start 07/08/16 at 09:30 Glucose (Glutose) 15 gm Q15M PRN PO DECREASED GLUCOSE; Start 07/08/16 at 09:30 Glucose (Glutose) 22.5 gm Q15M PRN PO DECREASED GLUCOSE; Start 07/08/16 at 09: 30 Dextrose (D50w Syringe) 25 ml Q15M PRN IV DECREASED GLUCOSE; Start 07/08/16 at 09:30 Dextrose (D50w Syringe) 50 ml Q15M PRN IV DECREASED GLUCOSE; Start 07/08/16 at 09:30 Glucagon (Glucagen) 1 mg Q15M PRN IM DECREASED GLUCOSE; Start 07/08/16 at 09:30 Glucose 15 gm 15 gm Q15M PRN BUCCAL DECREASED GLUCOSE; Start 07/08/16 at 09:30 Piperacillin Sod/ Tazobactam Sod (Zosyn 2.25gm/ 50ml (Pmx)) 50 ml @ 100 mls/hr Q8 IVPB Last administered on 07/10/16 05:30; Admin Dose 100 MLS/HR; Start at 14:00 DARA CAVANAUGH MD Jul 10, 2016 09:20
--- NOTE | 2016-07-10 13:20 | CONS ---
Date/Time of Note Date/Time of Note DATE: 07/10/16 TIME: 13:12 Assessment/Plan Assessment/Plan Problems: (1) Anemia, macrocytic Comment: Will do anemia panel but given chronicity and macrocytosis will need to evaluate for BM pathology like MDS as well. Could be chronic disease picture and ultimately will benefit from growth factors as well. Keep hemoglobin greater than 8 (2) Thrombocytopenia Comment: As above but given current antibiotics for osteo/cellulitis will check for signs of infection/DIC as well. (3) Acute renal failure Status: Acute Comment: Chronic and probably has dyserythropoiesis and will r/o myeloma as part of work up if not done yet Consultation Date/Type/Reason Admit Date/Time Jul 07, 2016 at 16:07 Date of Consultation: Jul 10, 2016 Type of Consultation: Hematology covering Dr Moore Reason for Consultation anemia and thrombocytopenia Hx of Present Illness Patient 76 y/o with multiple medical problems with no recent hx of etoh, has been followed for rt toe osteomyelitis, now admitted for fall with left calf hematoma and cellulitis was found to have hgb 5-6 on admission and macrocytosis with thrombocytopenia which is chronic on review of labs from the hospital records with low normal wbc Hematology evaluation requested for evaluation. Denies any active GI symptoms and has had evaluation for anemia previously. Also has renal dysfunction. Constitutional: no complaints, No chills Eyes: no complaints ENT: no complaints Respiratory: no complaints Cardiovascular: no complaints Gastrointestinal: no complaints Genitourinary: no complaints Skin: bruising Past Medical History Medical History: coronary artery disease, diabetes, renal disease Past Surgical History Past Surgical Hx: noncontributory Family History Significant Family History: no pertinent family hx Social History Alcohol Use: none Smoking Status: Never smoker Drug Use: none Exam/Review of Systems Vital Signs Vitals Vital Signs Date Time Temp Pulse Resp B/P Pulse Ox O2 Delivery O2 Flow Rate FiO2 07/10/16 08:13 98.7 65 20 102/51 98 07/08/16 09:45 Room Air Intake and Output 07/09/16 07/09/16 07/10/16 15:00 23:00 07:00 Intake Total 700 ml 250 ml Output Total 200 ml 700 ml Balance 500 ml -450 ml Exam left calf with dressing with no bleeding Constitutional: alert, oriented Psych: nl mood/affect Eyes: nl conjunctiva Neck: supple Respiratory: normal air movement Cardiovascular: nl pulses Gastrointestinal: soft Musculoskeletal: joint tenderness Extremities: calf tenderness Results Result Diagram: 07/10/16 0515 07/10/16 0515 Results 24 hrs Laboratory Tests Test 07/09/16 16:47 07/09/16 20:51 07/10/16 05:15 07/10/16 07:18 Bedside Glucose 87 112 107 Alanine Aminotransferase (ALT/SGPT) 22 Albumin 3.2 L Albumin/Globulin Ratio 0.91 Alkaline Phosphatase 118 Anion Gap 19 H Aspartate Amino Transf (AST/SGOT) 20 Basophils # 0.1 Basophils % 1.1 Blood Morphology Comment Blood Urea Nitrogen 60 H Calcium Level 8.2 L Carbon Dioxide Level 23 Chloride Level 103 Creatinine 3.99 H Direct Bilirubin 0.00 Eosinophils # 0.3 Eosinophils % 5.6 Globulin 3.50 H Glucose Level 58 #L Hematocrit 21.4 L Hemoglobin 7.8 L Indirect Bilirubin 0.4 Lymphocytes # 0.6 L Lymphocytes % 13.0 L Mean Corpuscular Hemoglobin 34.7 H Mean Corpuscular Hemoglobin Concent 36.4 Mean Corpuscular Volume 95.2 Mean Platelet Volume 8.0 Monocytes # 0.3 Monocytes % 5.7 Neutrophils # 3.6 Neutrophils % 74.6 Nucleated Red Blood Cells # 0.0 Nucleated Red Blood Cells % 0.0 Platelet Count 84 L Potassium Level 4.0 Red Blood Count 2.25 L Red Cell Distribution Width 17.3 H Sodium Level 141 Total Bilirubin 0.4 Total Protein 6.7 White Blood Count 4.8 Test 07/10/16 08:51 07/10/16 11:52 07/10/16 12:16 Bedside Glucose 104 123 Lab Scanned Report REFERENCE LAB Medications Medications Current Medications Collagenase (Santyl) 1 applic DAILY TOP Last administered on 07/10/16 08:16; Admin Dose 1 APPLIC; Start 07/08/16 at 09:00 Amiodarone HCl (Cordarone) 200 mg DAILY PO Last administered on 07/10/16 08:15 ; Admin Dose 200 MG; Start 07/08/16 at 09:00 Apixaban (Eliquis) 2.5 mg BID PO Last administered on 07/10/16 08:15; Admin Dose 2.5 MG; Start 07/07/16 at 21:00 Calcitriol (Rocaltrol) 0.25 mcg DAILY PO Last administered on 07/10/16 08:15; Admin Dose 0.25 MCG; Start 07/08/16 at 09:00 Ferrous Sulfate (Ferrous Sulfate (Ec)) 325 mg BID PO Last administered on 08:15; Admin Dose 325 MG; Start 07/07/16 at 21:00 Furosemide (Lasix) 40 mg BID PO Last administered on 07/10/16 08:16; Admin Dose 40 MG; Start 07/07/16 at 21:00 Insulin Glargine (Lantus) 20 unit QAM SC Last administered on 07/10/16 08:14; Admin Dose 20 UNIT; Start 07/08/16 at 09:00 Levothyroxine Sodium (Synthroid) 25 mcg DAILY PO Last administered on 08:13; Admin Dose 25 MCG; Start 07/08/16 at 09:00 Terazosin HCl (Hytrin) 5 mg HS PO Last administered on 07/09/16 21:01; Admin Dose 5 MG; Start 07/07/16 at 21:00 Atorvastatin Calcium (Lipitor) 10 mg DAILY@21 PO Last administered on 20:48; Admin Dose 10 MG; Start 07/07/16 at 21:00 Linagliptin (Tradjenta) 5 mg DAILY PO Last administered on 07/10/16 08:15; Admin Dose 5 MG; Start 07/07/16 at 19:30 Diagnostic Test (Pha) (Accucheck) 1 ea 02 XX Last administered on 07/09/16 02: 59; Admin Dose 1 EA; Start 07/08/16 at 02:00 Miscellaneous Information 1 ea NOTE XX ; Start 07/08/16 at 09:30 Glucose (Glutose) 15 gm Q15M PRN PO DECREASED GLUCOSE; Start 07/08/16 at 09:30 Glucose (Glutose) 22.5 gm Q15M PRN PO DECREASED GLUCOSE; Start 07/08/16 at 09: 30 Dextrose (D50w Syringe) 25 ml Q15M PRN IV DECREASED GLUCOSE; Start 07/08/16 at 09:30 Dextrose (D50w Syringe) 50 ml Q15M PRN IV DECREASED GLUCOSE; Start 07/08/16 at 09:30 Glucagon (Glucagen) 1 mg Q15M PRN IM DECREASED GLUCOSE; Start 07/08/16 at 09:30 Glucose 15 gm 15 gm Q15M PRN BUCCAL DECREASED GLUCOSE; Start 07/08/16 at 09:30 Piperacillin Sod/ Tazobactam Sod (Zosyn 2.25gm/ 50ml (Pmx)) 50 ml @ 100 mls/hr Q8 IVPB Last administered on 07/10/16t 05:30; Admin Dose 100 MLS/HR; Start at 14:00 JENNY SANTANA MD Jul 10, 2016 13:20
[2016-07-10 13:43] LABS: IRON 25 ug/dl (35-150)
[2016-07-10 13:52] LABS: TOTAL IRON BINDING CAPACITY 206 ug/dl (241-421)
[2016-07-10 19:52] VITALS: BP 115/61; RESP 16
[2016-07-10] MEDS: ATORVASTATIN 10 MG TAB PO SCH (20:11)
[2016-07-10] MEDS: TERAZOSIN 5 MG CAP PO SCH (20:12)
[2016-07-11] MEDS: ACCUCHECK XX SCH (02:00)
[2016-07-11] MEDS: PIPER-TAZO 2.25 GM (PMX) 50 ML IVPB SCH ×3 (05:18→21:35)
[2016-07-11 07:12] LABS: RETICULOCYTE COUNT % 2.5 % (0.5-1.5)
[2016-07-11 07:17] LABS: FIBRIN SPLIT PRODUCT <10 ug/ml (<10)
[2016-07-11 07:48] VITALS: BP 104/54; RESP 16
[2016-07-11 07:59] LABS: FOLATE 13.3 ng/ml (2.8-20.0)
[2016-07-11] MEDS: INSULIN ASPART [NOVOLOG] 3 ML PEN SC SCH ×4 (08:00→20:55)
[2016-07-11] MEDS: INSULIN GLARGINE [LANtus] 3 ML PEN SC SCH (08:25)
[2016-07-11] MEDS: LEVOTHYROXINE 25 MCG TAB PO SCH (08:28)
[2016-07-11] MEDS: CALCITRIOL 0.25 MCG CAP PO SCH (08:28)
[2016-07-11] MEDS: LINAGLIPTIN 5 MG TABLET PO SCH (08:28)
[2016-07-11] MEDS: AMIODARONE 200 MG TAB PO SCH (08:29)
[2016-07-11] MEDS: COLLAGENASE 30 GM TUBE TOP SCH (08:29)
[2016-07-11] MEDS: APIXABAN 5 MG TABLET PO SCH ×2 (08:29→20:54)
[2016-07-11] MEDS: FUROSEMIDE 40 MG TAB PO SCH ×2 (08:33→20:55)
[2016-07-11] MEDS: FERROUS SULFATE (EC) 325 MG TAB PO SCH ×2 (08:33→20:54)
--- NOTE | 2016-07-11 13:01 | PN ---
Date/Time of Note Date/Time of Note DATE: 07/11/16 TIME: 13:00 Assessment/Plan VTE Prophylaxis VTE Prophylaxis Intervention: anti-embolic stocking Lines/Catheters [facility] Urinary Cath still in place: No Assessment/Plan Chief Complaint/Hosp Course Patient 76 y/o with multiple medical problems with no recent hx of etoh, has been followed for rt toe osteomyelitis, now admitted for fall with left calf hematoma and cellulitis was found to have hgb 5-6 on admission and macrocytosis with thrombocytopenia which is chronic on review of labs from the hospital records with low normal wbc Hematology evaluation requested for evaluation. Denies any active GI symptoms and has had evaluation for anemia previously. Also has renal dysfunction. Problems: Assessment/Plan (1) Anemia, macrocytic Comment: Normal anemia panel but given chronicity and macrocytosis will need to evaluate for BM pathology like MDS as well. Could be chronic disease picture and ultimately will benefit from growth factors as well. Keep hemoglobin greater than 8 after checking cbc tomorrow (2) Thrombocytopenia Comment: As above but given current antibiotics for osteo/cellulitis labs checked for signs of infection/DIC as well but no evidence so far (3) Acute renal failure Status: Acute Comment: Chronic and probably has dyserythropoiesis and will r/o myeloma as part of work up and labs pending. Subjective 24 Hr Interval Summary Constitutional: improved, no complaints Respiratory: no complaints Cardiovascular: no complaints Exam/Review of Systems Vital Signs Vitals Vital Signs Date Time Temp Pulse Resp B/P Pulse Ox O2 Delivery O2 Flow Rate FiO2 07/11/16 07:48 98.3 67 16 104/54 96 07/08/16 09:45 Room Air Intake and Output 07/10/16 07/10/16 07/11/16 15:00 23:00 07:00 Intake Total 800 ml 770 ml Output Total 700 ml 740 ml Balance 100 ml 30 ml Exam Constitutional: alert, oriented Eyes: nl conjunctiva Neck: supple Respiratory: normal air movement Results Result Diagram: 07/10/16 0515 07/10/16 0515 Results 24 hrs Laboratory Tests Test 07/10/16 16:26 07/10/16 19:39 07/11/16 05:35 07/11/16 07:14 Bedside Glucose 124 148 87 Absolute Reticulocyte Count 0.055 Ferritin 260.0 Fibrinogen 417.0 Folate 13.3 Lactate Dehydrogenase 307 L Percent Reticulocyte Count 2.5 H Plasma Fibrin Degradation Products <10 Vitamin B12 Level 517 Test 07/11/16 11:37 Bedside Glucose 107 Medications Medications Current Medications Collagenase (Santyl) 1 applic DAILY TOP Last administered on 07/11/16 08:29; Admin Dose 1 APPLIC; Start 07/08/16 at 09:00 Amiodarone HCl (Cordarone) 200 mg DAILY PO Last administered on 07/11/16 08:29 ; Admin Dose 200 MG; Start 07/08/16 at 09:00 Apixaban (Eliquis) 2.5 mg BID PO Last administered on 07/11/16 08:29; Admin Dose 2.5 MG; Start 07/07/16 at 21:00 Calcitriol (Rocaltrol) 0.25 mcg DAILY PO Last administered on 07/11/16 08:28; Admin Dose 0.25 MCG; Start 07/08/16 at 09:00 Ferrous Sulfate (Ferrous Sulfate (Ec)) 325 mg BID PO Last administered on 08:33; Admin Dose 325 MG; Start 07/07/16 at 21:00 Furosemide (Lasix) 40 mg BID PO Last administered on 07/11/16 08:33; Admin Dose 40 MG; Start 07/07/16 at 21:00 Insulin Glargine (Lantus) 20 unit QAM SC Last administered on 07/08/16 09:59; Admin Dose 20 UNIT; Start 07/08/16 at 09:00 Levothyroxine Sodium (Synthroid) 25 mcg DAILY PO Last administered on 08:28; Admin Dose 25 MCG; Start 07/08/16 at 09:00 Terazosin HCl (Hytrin) 5 mg HS PO Last administered on 07/10/16 20:12; Admin Dose 5 MG; Start 07/07/16 at 21:00 Atorvastatin Calcium (Lipitor) 10 mg DAILY@21 PO Last administered on 20:11; Admin Dose 10 MG; Start 07/07/16 at 21:00 Linagliptin (Tradjenta) 5 mg DAILY PO Last administered on 07/11/16 08:28; Admin Dose 5 MG; Start 07/07/16 at 19:30 Diagnostic Test (Pha) (Accucheck) 1 ea 02 XX Last administered on 07/09/16 02: 59; Admin Dose 1 EA; Start 07/08/16 at 02:00 Miscellaneous Information 1 ea NOTE XX ; Start 07/08/16 at 09:30 Glucose (Glutose) 15 gm Q15M PRN PO DECREASED GLUCOSE; Start 07/08/16 at 09:30 Glucose (Glutose) 22.5 gm Q15M PRN PO DECREASED GLUCOSE; Start 07/08/16 at 09: 30 Dextrose (D50w Syringe) 25 ml Q15M PRN IV DECREASED GLUCOSE; Start 07/08/16 at 09:30 Dextrose (D50w Syringe) 50 ml Q15M PRN IV DECREASED GLUCOSE; Start 07/08/16 at 09:30 Glucagon (Glucagen) 1 mg Q15M PRN IM DECREASED GLUCOSE; Start 07/08/16 at 09:30 Glucose 15 gm 15 gm Q15M PRN BUCCAL DECREASED GLUCOSE; Start 07/08/16 at 09:30 Piperacillin Sod/ Tazobactam Sod (Zosyn 2.25gm/ 50ml (Pmx)) 50 ml @ 100 mls/hr Q8 IVPB Last administered on 07/11/16t 05:18; Admin Dose 100 MLS/HR; Start at 14:00 JENNY SANTANA MD Jul 11, 2016 13:01
--- NOTE | 2016-07-11 13:13 | PN ---
Date/Time of Note Date/Time of Note DATE: 07/11/16 TIME: 13:10 Assessment/Plan VTE Prophylaxis VTE Prophylaxis Intervention: other Lines/Catheters [facility] Urinary Cath still in place: No Assessment/Plan Chief Complaint/Hosp Course IMPRESSION: 1. Left leg wound. 2. Hypertension. 3. Diabetes mellitus. 4. Chronic kidney disease.4 5. Coronary artery disease. 6. Atherosclerotic heart disease. 7. Dyslipidemia. 8. Obesity. 9. Peripheral vascular disease. 10. Noncompliance. [address] xie antibiotic refused hd ck labs Problems: Subjective 24 Hr Interval Summary Cardiovascular: no complaints Gastrointestinal: no complaints Genitourinary: no complaints Exam/Review of Systems Vital Signs Vitals Vital Signs Date Time Temp Pulse Resp B/P Pulse Ox O2 Delivery O2 Flow Rate FiO2 07/11/16 07:48 98.3 67 16 104/54 96 07/08/16 09:45 Room Air Intake and Output 07/10/16 07/10/16 07/11/16 15:00 23:00 07:00 Intake Total 800 ml 770 ml Output Total 700 ml 740 ml Balance 100 ml 30 ml Exam Neck: supple Respiratory: clear to auscultation Cardiovascular: regular rate and rhythm Gastrointestinal: soft Extremities: edema (decreased) Results Result Diagram: 07/10/16 0515 07/10/16 0515 Results 24 hrs Laboratory Tests Test 07/10/16 16:26 07/10/16 19:39 07/11/16 05:35 07/11/16 07:14 Bedside Glucose 124 148 87 Absolute Reticulocyte Count 0.055 Ferritin 260.0 Fibrinogen 417.0 Folate 13.3 Lactate Dehydrogenase 307 L Percent Reticulocyte Count 2.5 H Plasma Fibrin Degradation Products <10 Vitamin B12 Level 517 Test 07/11/16 11:37 Bedside Glucose 107 Medications Medications Current Medications Collagenase (Santyl) 1 applic DAILY TOP Last administered on 07/11/16 08:29; Admin Dose 1 APPLIC; Start 07/08/16 at 09:00 Amiodarone HCl (Cordarone) 200 mg DAILY PO Last administered on 07/11/16 08:29 ; Admin Dose 200 MG; Start 07/08/16 at 09:00 Apixaban (Eliquis) 2.5 mg BID PO Last administered on 07/11/16 08:29; Admin Dose 2.5 MG; Start 07/07/16 at 21:00 Calcitriol (Rocaltrol) 0.25 mcg DAILY PO Last administered on 07/11/16 08:28; Admin Dose 0.25 MCG; Start 07/08/16 at 09:00 Ferrous Sulfate (Ferrous Sulfate (Ec)) 325 mg BID PO Last administered on 08:33; Admin Dose 325 MG; Start 07/07/16 at 21:00 Furosemide (Lasix) 40 mg BID PO Last administered on 07/11/16 08:33; Admin Dose 40 MG; Start 07/07/16 at 21:00 Insulin Glargine (Lantus) 20 unit QAM SC Last administered on 07/08/16 09:59; Admin Dose 20 UNIT; Start 07/08/16 at 09:00 Levothyroxine Sodium (Synthroid) 25 mcg DAILY PO Last administered on 08:28; Admin Dose 25 MCG; Start 07/08/16 at 09:00 Terazosin HCl (Hytrin) 5 mg HS PO Last administered on 07/10/16 20:12; Admin Dose 5 MG; Start 07/07/16 at 21:00 Atorvastatin Calcium (Lipitor) 10 mg DAILY@21 PO Last administered on 20:11; Admin Dose 10 MG; Start 07/07/16 at 21:00 Linagliptin (Tradjenta) 5 mg DAILY PO Last administered on 07/11/16 08:28; Admin Dose 5 MG; Start 07/07/16 at 19:30 Diagnostic Test (Pha) (Accucheck) 1 ea 02 XX Last administered on 07/09/16 02: 59; Admin Dose 1 EA; Start 07/08/16 at 02:00 Miscellaneous Information 1 ea NOTE XX ; Start 07/08/16 at 09:30 Glucose (Glutose) 15 gm Q15M PRN PO DECREASED GLUCOSE; Start 07/08/16 at 09:30 Glucose (Glutose) 22.5 gm Q15M PRN PO DECREASED GLUCOSE; Start 07/08/16 at 09: 30 Dextrose (D50w Syringe) 25 ml Q15M PRN IV DECREASED GLUCOSE; Start 07/08/16 at 09:30 Dextrose (D50w Syringe) 50 ml Q15M PRN IV DECREASED GLUCOSE; Start 07/08/16 at 09:30 Glucagon (Glucagen) 1 mg Q15M PRN IM DECREASED GLUCOSE; Start 07/08/16 at 09:30 Glucose 15 gm 15 gm Q15M PRN BUCCAL DECREASED GLUCOSE; Start 07/08/16 at 09:30 Piperacillin Sod/ Tazobactam Sod (Zosyn 2.25gm/ 50ml (Pmx)) 50 ml @ 100 mls/hr Q8 IVPB Last administered on 07/11/16t 05:18; Admin Dose 100 MLS/HR; Start at 14:00 DARA CAVANAUGH MD Jul 11, 2016 13:13
[2016-07-11 20:17] VITALS: BP 120/64; RESP 16
[2016-07-11] MEDS: ATORVASTATIN 10 MG TAB PO SCH (20:54)
[2016-07-11] MEDS: TERAZOSIN 5 MG CAP PO SCH (20:55)
[2016-07-11 21:45] VITALS: BP 105/52; PULSE 65
[2016-07-11 23:01] VITALS: BP 105/56; PULSE 65; RESP 18
[2016-07-12] MEDS: ACCUCHECK XX SCH (02:00)
[2016-07-12] MEDS: PIPER-TAZO 2.25 GM (PMX) 50 ML IVPB SCH ×3 (05:35→22:08)
[2016-07-12 07:46] VITALS: BP 115/58; RESP 16
[2016-07-12] MEDS: INSULIN ASPART [NOVOLOG] 3 ML PEN SC SCH ×4 (08:00→21:00)
[2016-07-12] MEDS: LINAGLIPTIN 5 MG TABLET PO SCH (08:39)
[2016-07-12] MEDS: FERROUS SULFATE (EC) 325 MG TAB PO SCH ×2 (08:39→22:09)
[2016-07-12] MEDS: LEVOTHYROXINE 25 MCG TAB PO SCH (08:39)
[2016-07-12] MEDS: AMIODARONE 200 MG TAB PO SCH (08:40)
[2016-07-12] MEDS: APIXABAN 5 MG TABLET PO SCH (08:40)
[2016-07-12] MEDS: CALCITRIOL 0.25 MCG CAP PO SCH (08:41)
[2016-07-12] MEDS: COLLAGENASE 30 GM TUBE TOP SCH (08:41)
[2016-07-12] MEDS: FUROSEMIDE 40 MG TAB PO SCH ×2 (08:41→22:10)
[2016-07-12] MEDS: INSULIN GLARGINE [LANtus] 3 ML PEN SC SCH (08:44)
[2016-07-12 10:04] LABS: BASOPHILS % 0.9 % (0.0-2.0); EOSINOPHILS # 0.3 10^3/ul (0.0-0.5); EOSINOPHILS % 7.1 % (0.0-7.0); HEMATOCRIT 20.4 % (42.0-52.0); HEMOGLOBIN 7.1 g/dl (14.0-18.0); LYMPHOCYTES # 0.7 10^3/ul (0.8-2.9); LYMPHOCYTES % 14.6 % (15.0-51.0); MEAN CORPUSCULAR HEMOGLOBIN 33.3 pg (29.0-33.0); MEAN CORPUSCULAR HGB CONC 34.9 g/dl (32.0-37.0); MEAN CORPUSCULAR VOLUME 95.4 fl (82.0-101.0); MEAN PLATELET VOLUME 6.7 fl (7.4-10.4); MONOCYTE # 0.3 10^3/ul (0.3-0.9); MONOCYTES % 5.8 % (0.0-11.0); NEUTROPHIL # 3.5 10^3/ul (1.6-7.5); NEUTROPHILS % 71.6 % (39.0-77.0); PLATELET COUNT 84 10^3/UL (140-440); RED BLOOD COUNT 2.14 10^6/ul (4.70-6.10); RED CELL DISTRIBUTION WIDTH 17.4 % (11.5-14.5); UNCORRECTED WBC 4.8 10^3/ul (4.8-10.8); WHITE BLOOD COUNT 4.8 10^3/ul (4.8-10.8)
[2016-07-12 10:05] LABS: CONDITION 1; LH ANALYZER COMMENTS 1
[2016-07-12 10:28] LABS: POTASSIUM 3.4 mmol/L (3.5-5.1)
[2016-07-12] MEDS ORDERED: SOD CHLORIDE 0.9% 250 ML IV* ONE (10:29)
[2016-07-12 10:31] LABS: CREATININE 4.23 mg/dl (0.61-1.24)
[2016-07-12 10:32] LABS: CALCIUM 8.5 mg/dl (8.4-10.2)
[2016-07-12 14:29] LABS: PROTEIN, TOTAL 6.2 g/dL (6.1-8.1)
[2016-07-12] MEDS ORDERED: POTASSIUM CHLORIDE (SR) 20 MEQ TAB PO STA (15:53)
--- NOTE | 2016-07-12 15:56 | PN ---
Date/Time of Note Date/Time of Note DATE: 07/12/16 TIME: 15:55 Assessment/Plan VTE Prophylaxis VTE Prophylaxis Intervention: other Lines/Catheters IV Catheter Type (from [facility]): [facility] Urinary Cath still in place: No Assessment/Plan Chief Complaint/Hosp Course IMPRESSION: 1. Left leg wound. 2. Hypertension. 3. Diabetes mellitus. 4. Chronic kidney disease.4 5. Coronary artery disease. 6. Atherosclerotic heart disease. 7. Dyslipidemia. 8. Obesity. 9. Peripheral vascular disease. 10. Noncompliance. 11 anemia [address] xie antibiotic refused hd ck labs prbc kcl Problems: Subjective 24 Hr Interval Summary Cardiovascular: no complaints Gastrointestinal: no complaints Exam/Review of Systems Vital Signs Vitals Vital Signs Date Time Temp Pulse Resp B/P Pulse Ox O2 Delivery O2 Flow Rate FiO2 07/12/16 07:46 98.1 66 16 115/58 96 07/11/16 23:01 Room Air Intake and Output 07/11/16 07/11/16 07/12/16 15:00 23:00 07:00 Intake Total 1110 ml 850 ml Output Total 650 ml 1000 ml Balance 460 ml -150 ml Exam Neck: supple Respiratory: clear to auscultation Cardiovascular: regular rate and rhythm Gastrointestinal: soft Musculoskeletal: nl extremities to inspection Results Result Diagram: 07/12/16 0944 07/12/16 0944 Results 24 hrs Laboratory Tests Test 07/11/16 16:34 07/11/16 20:53 07/12/16 07:36 07/12/16 09:44 Bedside Glucose 149 132 91 Anion Gap 17 H Basophils # 0.0 Basophils % 0.9 Blood Morphology Comment Blood Urea Nitrogen 64 H Calcium Level 8.5 Carbon Dioxide Level 25 Chloride Level 100 Creatinine 4.23 H Eosinophils # 0.3 Eosinophils % 7.1 H Glucose Level 108 Hematocrit 20.4 L Hemoglobin 7.1 L Lymphocytes # 0.7 L Lymphocytes % 14.6 L Mean Corpuscular Hemoglobin 33.3 H Mean Corpuscular Hemoglobin Concent 34.9 Mean Corpuscular Volume 95.4 Mean Platelet Volume 6.7 L Monocytes # 0.3 Monocytes % 5.8 Neutrophils # 3.5 Neutrophils % 71.6 Nucleated Red Blood Cells # 0.0 Nucleated Red Blood Cells % 0.0 Platelet Count 84 L Potassium Level 3.4 L Red Blood Count 2.14 L Red Cell Distribution Width 17.4 H Sodium Level 139 White Blood Count 4.8 Test 07/12/16 11:59 Bedside Glucose 125 Medications Medications Current Medications Collagenase (Santyl) 1 applic DAILY TOP Last administered on 07/12/16 08:41; Admin Dose 1 APPLIC; Start 07/08/16 at 09:00 Amiodarone HCl (Cordarone) 200 mg DAILY PO Last administered on 07/12/16 08:40 ; Admin Dose 200 MG; Start 07/08/16 at 09:00 Apixaban (Eliquis) 2.5 mg BID PO Last administered on 07/12/16 08:40; Admin Dose 2.5 MG; Start 07/07/16 at 21:00 Calcitriol (Rocaltrol) 0.25 mcg DAILY PO Last administered on 07/12/16 08:41; Admin Dose 0.25 MCG; Start 07/08/16 at 09:00 Ferrous Sulfate (Ferrous Sulfate (Ec)) 325 mg BID PO Last administered on 08:39; Admin Dose 325 MG; Start 07/07/16 at 21:00 Furosemide (Lasix) 40 mg BID PO Last administered on 07/12/16 08:41; Admin Dose 40 MG; Start 07/07/16 at 21:00 Insulin Glargine (Lantus) 20 unit QAM SC Last administered on 07/12/16 08:44; Admin Dose 20 UNIT; Start 07/08/16 at 09:00 Levothyroxine Sodium (Synthroid) 25 mcg DAILY PO Last administered on 08:39; Admin Dose 25 MCG; Start 07/08/16 at 09:00 Terazosin HCl (Hytrin) 5 mg HS PO Last administered on 07/11/16 20:55; Admin Dose 5 MG; Start 07/07/16 at 21:00 Atorvastatin Calcium (Lipitor) 10 mg DAILY@21 PO Last administered on 20:54; Admin Dose 10 MG; Start 07/07/16 at 21:00 Linagliptin (Tradjenta) 5 mg DAILY PO Last administered on 07/12/16 08:39; Admin Dose 5 MG; Start 07/07/16 at 19:30 Diagnostic Test (Pha) (Accucheck) 1 ea 02 XX Last administered on 07/09/16 02: 59; Admin Dose 1 EA; Start 07/08/16 at 02:00 Miscellaneous Information 1 ea NOTE XX ; Start 07/08/16 at 09:30 Glucose (Glutose) 15 gm Q15M PRN PO DECREASED GLUCOSE; Start 07/08/16 at 09:30 Glucose (Glutose) 22.5 gm Q15M PRN PO DECREASED GLUCOSE; Start 07/08/16 at 09: 30 Dextrose (D50w Syringe) 25 ml Q15M PRN IV DECREASED GLUCOSE; Start 07/08/16 at 09:30 Dextrose (D50w Syringe) 50 ml Q15M PRN IV DECREASED GLUCOSE; Start 07/08/16 at 09:30 Glucagon (Glucagen) 1 mg Q15M PRN IM DECREASED GLUCOSE; Start 07/08/16 at 09:30 Glucose 15 gm 15 gm Q15M PRN BUCCAL DECREASED GLUCOSE; Start 07/08/16 at 09:30 Piperacillin Sod/ Tazobactam Sod (Zosyn 2.25gm/ 50ml (Pmx)) 50 ml @ 100 mls/hr Q8 IVPB Last administered on 07/12/16 13:33; Admin Dose 100 MLS/HR; Start at 14:00 DARA CAVANAUGH MD Jul 12, 2016 15:56
--- NOTE | 2016-07-12 16:14 | CONS ---
Date/Time of Note Date/Time of Note DATE: 07/12/16 TIME: 16:12 Assessment/Plan Assessment/Plan Chief Complaint/Hosp Course Patient 76 y/o with multiple medical problems with no recent hx of etoh, has been followed for rt toe osteomyelitis, now admitted for fall with left calf hematoma and cellulitis was found to have hgb 5-6 on admission and macrocytosis with thrombocytopenia which is chronic on review of labs from the hospital records with low normal wbc. Anemia workup reveals high likelihood of MDS. (1) Anemia, macrocytic Comment: Normal anemia panel but given chronicity and macrocytosis will need to evaluate for BM pathology like MDS as well. Could be chronic disease picture and ultimately will benefit from growth factors as well. Keep hemoglobin greater than 8 after checking cbc tomorrow -Bone marrow Bx ordered for tomorrow (2) Thrombocytopenia Comment: As above but given current antibiotics for osteo/cellulitis labs checked for signs of infection/DIC as well but no evidence so far (3) Acute renal failure Status: Acute Comment: Chronic and probably has dyserythropoiesis and will r/o myeloma as part of work up and labs pending. Problems: Consultation Date/Type/Reason Admit Date/Time Jul 07, 2016 at 16:07 Initial Consult Date 07/10/16 Type of Consultation: Hematology Reason for Consultation anemia Referring Provider: DARA CAVANAUGH 24 HR Interval Summary Free Text/Dictation pt receiving 2 units of PRBCs today Exam/Review of Systems Vital Signs Vitals Vital Signs Date Time Temp Pulse Resp B/P Pulse Ox O2 Delivery O2 Flow Rate FiO2 07/12/16 07:46 98.1 66 16 115/58 96 07/11/16 23:01 Room Air Intake and Output 07/11/16 07/11/16 07/12/16 15:00 23:00 07:00 Intake Total 1110 ml 850 ml Output Total 650 ml 1000 ml Balance 460 ml -150 ml Exam Constitutional: alert, frail, oriented Head: atraumatic, normocephalic Eyes: nl conjunctiva ENMT: nl external ears & nose Neck: non-tender, supple Respiratory: clear to auscultation, normal air movement Cardiovascular: regular rate and rhythm Gastrointestinal: soft Musculoskeletal: nl extremities to inspection, nl gait and stance Extremities: normal pulses Results Result Diagram: 07/12/16 0944 07/12/16 0944 Results 24 hrs Laboratory Tests Test 07/11/16 16:34 07/11/16 20:53 07/12/16 07:36 07/12/16 09:44 Bedside Glucose 149 132 91 Anion Gap 17 H Basophils # 0.0 Basophils % 0.9 Blood Morphology Comment Blood Urea Nitrogen 64 H Calcium Level 8.5 Carbon Dioxide Level 25 Chloride Level 100 Creatinine 4.23 H Eosinophils # 0.3 Eosinophils % 7.1 H Glucose Level 108 Hematocrit 20.4 L Hemoglobin 7.1 L Lymphocytes # 0.7 L Lymphocytes % 14.6 L Mean Corpuscular Hemoglobin 33.3 H Mean Corpuscular Hemoglobin Concent 34.9 Mean Corpuscular Volume 95.4 Mean Platelet Volume 6.7 L Monocytes # 0.3 Monocytes % 5.8 Neutrophils # 3.5 Neutrophils % 71.6 Nucleated Red Blood Cells # 0.0 Nucleated Red Blood Cells % 0.0 Platelet Count 84 L Potassium Level 3.4 L Red Blood Count 2.14 L Red Cell Distribution Width 17.4 H Sodium Level 139 White Blood Count 4.8 Test 07/12/16 11:59 Bedside Glucose 125 Medications Medications Current Medications Collagenase (Santyl) 1 applic DAILY TOP Last administered on 07/12/16 08:41; Admin Dose 1 APPLIC; Start 07/08/16 at 09:00 Amiodarone HCl (Cordarone) 200 mg DAILY PO Last administered on 07/12/16 08:40 ; Admin Dose 200 MG; Start 07/08/16 at 09:00 Apixaban (Eliquis) 2.5 mg BID PO Last administered on 07/12/16 08:40; Admin Dose 2.5 MG; Start 07/07/16 at 21:00 Calcitriol (Rocaltrol) 0.25 mcg DAILY PO Last administered on 07/12/16 08:41; Admin Dose 0.25 MCG; Start 07/08/16 at 09:00 Ferrous Sulfate (Ferrous Sulfate (Ec)) 325 mg BID PO Last administered on 08:39; Admin Dose 325 MG; Start 07/07/16 at 21:00 Furosemide (Lasix) 40 mg BID PO Last administered on 07/12/16 08:41; Admin Dose 40 MG; Start 07/07/16 at 21:00 Insulin Glargine (Lantus) 20 unit QAM SC Last administered on 07/12/16 08:44; Admin Dose 20 UNIT; Start 07/08/16 at 09:00 Levothyroxine Sodium (Synthroid) 25 mcg DAILY PO Last administered on 08:39; Admin Dose 25 MCG; Start 07/08/16 at 09:00 Terazosin HCl (Hytrin) 5 mg HS PO Last administered on 07/11/16 20:55; Admin Dose 5 MG; Start 07/07/16 at 21:00 Atorvastatin Calcium (Lipitor) 10 mg DAILY@21 PO Last administered on 20:54; Admin Dose 10 MG; Start 07/07/16 at 21:00 Linagliptin (Tradjenta) 5 mg DAILY PO Last administered on 07/12/16 08:39; Admin Dose 5 MG; Start 07/07/16 at 19:30 Diagnostic Test (Pha) (Accucheck) 1 ea 02 XX Last administered on 07/09/16 02: 59; Admin Dose 1 EA; Start 07/08/16 at 02:00 Miscellaneous Information 1 ea NOTE XX ; Start 07/08/16 at 09:30 Glucose (Glutose) 15 gm Q15M PRN PO DECREASED GLUCOSE; Start 07/08/16 at 09:30 Glucose (Glutose) 22.5 gm Q15M PRN PO DECREASED GLUCOSE; Start 07/08/16 at 09: 30 Dextrose (D50w Syringe) 25 ml Q15M PRN IV DECREASED GLUCOSE; Start 07/08/16 at 09:30 Dextrose (D50w Syringe) 50 ml Q15M PRN IV DECREASED GLUCOSE; Start 07/08/16 at 09:30 Glucagon (Glucagen) 1 mg Q15M PRN IM DECREASED GLUCOSE; Start 07/08/16 at 09:30 Glucose 15 gm 15 gm Q15M PRN BUCCAL DECREASED GLUCOSE; Start 07/08/16 at 09:30 Piperacillin Sod/ Tazobactam Sod (Zosyn 2.25gm/ 50ml (Pmx)) 50 ml @ 100 mls/hr Q8 IVPB Last administered on 07/12/16 13:33; Admin Dose 100 MLS/HR; Start at 14:00 TATIANA OROSCO M.D. Jul 12, 2016 16:14
--- NOTE | 2016-07-12 17:30 | CONS ---
DATE OF ADMISSION: 07/07/2016 DATE OF CONSULTATION: TYPE OF CONSULTATION: Gastroenterology. REFERRING PHYSICIAN: Dr. Kj Cavanaugh HISTORY OF PRESENT ILLNESS: The patient is a 76-year-old male with a history of osteomyelitis of th e right toe, admitted for left calf hematoma and cellulitis. In the ER, his hemoglobin was 5 to 6. The patient also had thrombocytopenia and macrocytosis. GI consult was called in to rule out GI bl eeding. The patient denies of any abdominal pain. No nausea, no vomiting, no GI bleeding, no chest pain, no shortness of breath. PAST MEDICAL HISTORY: Coronary artery disease, diabetes mellitus, renal disease. The patient is on dialysis. ALLERGIES: NONE. FAMILY HISTORY: Nothing contributory. SOCIAL HISTORY: Does not smoke or drink alcohol, no IV drug abuse. PHYSICAL EXAMINATION: GENERAL: Alert, awake, not in distress. VITAL SIGNS: Stable. HEENT: Unremarkable. NECK: Supple. No thyromegaly, no lymphadenopathy. CARDIOVASCULAR: No murmur, gallop, or click. LUNGS: Clear. ABDOMEN: Soft, benign. EXTREMITIES: Left calf: He has a dressing. CENTRAL NERVOUS SYSTEM: Grossly within normal limits. LABORATORY DATA: The patient's hematocrit now is 20, WBC is 4.8, platelet count is 84. BUN 64, cre atinine 4.23. INR is high at 1.7. MEDICATIONS: All reviewed. He is also on Eliquis. IMPRESSION: 1. Anemia, probably of chronic disease. Rule out myelodysplastic syndrome or multiple myeloma. 2. Left leg wound. 3. Hypertension. 4. Diabetes mellitus. 5. Chronic kidney disease. 6. Coronary artery disease. 7. Obesity. 8. Dyslipidemia. 9. Peripheral vascular disease. 10. Noncompliance. PLAN: At this point, is to proceed with bone marrow, stool for occult blood. After bone marrow, wi ll decide whether the patient needs further GI workup or not. At this point, patient has no GI symp toms. Dictated By: GOYO MILLER MD PJ/NTS Conf#: [id number] DID#: [id number] CC: KJ CAVANAUGH MD; GOYO MILLER MD;*EndCC*
[2016-07-12 20:00] VITALS: BP 116/59; PULSE 66; RESP 16
[2016-07-12 20:41] VITALS: BP 116/59; RESP 16
[2016-07-12] MEDS: TERAZOSIN 5 MG CAP PO SCH (22:11)
[2016-07-12] MEDS: ATORVASTATIN 10 MG TAB PO SCH (22:12)
[2016-07-13] VITALS (12 sets, daily range): BP systolic 118–135; BP diastolic 56–66; PULSE 61–72; RESP 18
[2016-07-13] MEDS: ACCUCHECK XX SCH (02:00)
[2016-07-13] MEDS: PIPER-TAZO 2.25 GM (PMX) 50 ML IVPB SCH ×3 (05:39→21:28)
[2016-07-13 06:12] LABS: POTASSIUM 3.7 mmol/L (3.5-5.1)
[2016-07-13 06:14] LABS: CREATININE 4.13 mg/dl (0.61-1.24)
[2016-07-13 06:15] LABS: CALCIUM 8.4 mg/dl (8.4-10.2)
[2016-07-13 07:01] LABS: BASOPHILS % 0.1 % (0.0-2.0); EOSINOPHILS # 0.4 10^3/ul (0.0-0.5); EOSINOPHILS % 7.2 % (0.0-7.0); HEMATOCRIT 24.9 % (42.0-52.0); HEMOGLOBIN 8.6 g/dl (14.0-18.0); LYMPHOCYTES # 0.7 10^3/ul (0.8-2.9); MEAN CORPUSCULAR HGB CONC 34.5 g/dl (32.0-37.0); MEAN CORPUSCULAR VOLUME 95.7 fl (82.0-101.0); MEAN PLATELET VOLUME 7.4 fl (7.4-10.4); MONOCYTE # 0.3 10^3/ul (0.3-0.9); MONOCYTES % 5.4 % (0.0-11.0); NEUTROPHIL # 4.2 10^3/ul (1.6-7.5); NEUTROPHILS % 74.3 % (39.0-77.0); PLATELET COUNT 74 10^3/UL (140-440); RED BLOOD COUNT 2.61 10^6/ul (4.70-6.10); UNCORRECTED WBC 5.7 10^3/ul (4.8-10.8); WHITE BLOOD COUNT 5.7 10^3/ul (4.8-10.8)
[2016-07-13 07:14] LABS: CONDITION 1; LH ANALYZER COMMENTS 1
[2016-07-13] MEDS: INSULIN ASPART [NOVOLOG] 3 ML PEN SC SCH ×4 (08:00→21:00)
[2016-07-13] MEDS: DEXTROSE 50% 50 ML SYRINGE IV PRN (08:43)
[2016-07-13 09:00] LABS: INR 1.9; PT RATIO 1.7
[2016-07-13] MEDS: INSULIN GLARGINE [LANtus] 3 ML PEN SC SCH (09:00)
[2016-07-13] MEDS: LINAGLIPTIN 5 MG TABLET PO SCH (09:00)
[2016-07-13 09:01] LABS: PARTIAL THROMBOPLASTIN TIME 42.9 Sec (25.0-35.0)
[2016-07-13 11:13] LABS: PLATELET ESTIMATE PLT APPEAR DECREASED
[2016-07-13] MEDS ORDERED: POLYETHYLENE GLYCOL 17 GM PACKET PO SCH (12:30)
[2016-07-13] MEDS ORDERED: DEXTROSE 5%-0.45% NACL 1,000 ML IV SCH (12:30)
[2016-07-13] MEDS ORDERED: POLYETHYLENE GLYCOL 17 GM PACKET PO PRN (13:00)
[2016-07-13] MEDS ORDERED: MIDAZOLAM 1 MG/ML 2 ML INJ ONE (14:01)
[2016-07-13] MEDS ORDERED: LIDOCAINE 1% (MDV) 20 ML INJ ONE (14:01)
[2016-07-13] MEDS ORDERED: SOD CHLORIDE 0.9% 500 ML ONE (14:01)
[2016-07-13] MEDS ORDERED: FENTAnyl 50 MCG/ML VIAL ONE (14:01)
[2016-07-13] MEDS: AMIODARONE 200 MG TAB PO SCH (16:38)
[2016-07-13] MEDS: FERROUS SULFATE (EC) 325 MG TAB PO SCH ×2 (16:38→21:29)
[2016-07-13] MEDS: CALCITRIOL 0.25 MCG CAP PO SCH (16:39)
[2016-07-13] MEDS: LEVOTHYROXINE 25 MCG TAB PO SCH (16:39)
[2016-07-13] MEDS: FUROSEMIDE 40 MG TAB PO SCH ×2 (16:39→21:29)
--- NOTE | 2016-07-13 17:10 | PN ---
Date/Time of Note Date/Time of Note DATE: 07/13/16 TIME: 17:09 Assessment/Plan VTE Prophylaxis VTE Prophylaxis Intervention: other Lines/Catheters [facility] Saline Lock Urinary Cath still in place: No Assessment/Plan Chief Complaint/Hosp Course IMPRESSION: 1. Left leg wound. 2. Hypertension. 3. Diabetes mellitus. 4. Chronic kidney disease.4 5. Coronary artery disease. 6. Atherosclerotic heart disease. 7. Dyslipidemia. 8. Obesity. 9. Peripheral vascular disease. 10. Noncompliance. 11 anemia [address] xie antibiotic AVF ck labs prbc CK BIOPSY Problems: Subjective 24 Hr Interval Summary Cardiovascular: no complaints Gastrointestinal: no complaints Genitourinary: no complaints Exam/Review of Systems Vital Signs Vitals Vital Signs Date Time Temp Pulse Resp B/P Pulse Ox O2 Delivery O2 Flow Rate FiO2 07/13/16 15:45 Nasal Cannula 3 07/13/16 15:45 70 18 130/61 94 07/13/16 15:00 98.0 Intake and Output 07/12/16 07/12/16 07/13/16 15:00 23:00 07:00 Intake Total 980 ml 640 ml Output Total 850 ml 550 ml Balance 130 ml 90 ml Exam Neck: supple Respiratory: clear to auscultation Cardiovascular: regular rate and rhythm Gastrointestinal: soft Musculoskeletal: No joint tenderness Results Result Diagram: 07/13/16 0530 07/13/16 0530 Results 24 hrs Laboratory Tests Test 07/12/16 22:15 07/13/16 05:30 07/13/16 08:35 07/13/16 08:36 Bedside Glucose 101 62 L Anion Gap 21 H Basophils # 0.0 Basophils % 0.1 Blood Morphology Comment Blood Urea Nitrogen 62 H Calcium Level 8.4 Carbon Dioxide Level 24 Chloride Level 102 Creatinine 4.13 H Eosinophils # 0.4 Eosinophils % 7.2 H Glucose Level 59 #L Hematocrit 24.9 #L Hemoglobin 8.6 #L Lymphocytes # 0.7 L Lymphocytes % 13.0 L Mean Corpuscular Hemoglobin 33.0 Mean Corpuscular Hemoglobin Concent 34.5 Mean Corpuscular Volume 95.7 Mean Platelet Volume 7.4 Monocytes # 0.3 Monocytes % 5.4 Neutrophils # 4.2 Neutrophils % 74.3 Nucleated Red Blood Cells # 0.0 Nucleated Red Blood Cells % 0.0 Platelet Count 74 L Platelet Estimate PLT APPEAR DECREASED Potassium Level 3.7 Red Blood Count 2.61 #L Red Cell Distribution Width 18.0 H Sodium Level 143 White Blood Count 5.7 Activated Partial Thromboplast Time 42.9 H INR International Normalized Ratio 1.90 Prothrombin Time 22.0 H Prothrombin Time Ratio 1.7 Test 07/13/16 09:02 07/13/16 11:12 07/13/16 13:49 Bedside Glucose 147 85 84 Medications Medications Current Medications Collagenase (Santyl) 1 applic DAILY TOP Last administered on 07/12/16 08:41; Admin Dose 1 APPLIC; Start 07/08/16 at 09:00 Amiodarone HCl (Cordarone) 200 mg DAILY PO Last administered on 07/13/16 16:38 ; Admin Dose 200 MG; Start 07/08/16 at 09:00 Calcitriol (Rocaltrol) 0.25 mcg DAILY PO Last administered on 07/13/16 16:39; Admin Dose 0.25 MCG; Start 07/08/16 at 09:00 Ferrous Sulfate (Ferrous Sulfate (Ec)) 325 mg BID PO Last administered on 16:38; Admin Dose 325 MG; Start 07/07/16 at 21:00 Furosemide (Lasix) 40 mg BID PO Last administered on 07/13/16 16:39; Admin Dose 40 MG; Start 07/07/16 at 21:00 Insulin Glargine (Lantus) 20 unit QAM SC Last administered on 07/12/16 08:44; Admin Dose 20 UNIT; Start 07/08/16 at 09:00 Levothyroxine Sodium (Synthroid) 25 mcg DAILY PO Last administered on 16:39; Admin Dose 25 MCG; Start 07/08/16 at 09:00 Terazosin HCl (Hytrin) 5 mg HS PO Last administered on 07/12/16 22:11; Admin Dose 5 MG; Start 07/07/16 at 21:00 Atorvastatin Calcium (Lipitor) 10 mg DAILY@21 PO Last administered on 22:12; Admin Dose 10 MG; Start 07/07/16 at 21:00 Linagliptin (Tradjenta) 5 mg DAILY PO Last administered on 07/12/16 08:39; Admin Dose 5 MG; Start 07/07/16 at 19:30 Diagnostic Test (Pha) (Accucheck) 1 ea 02 XX Last administered on 07/09/16 02: 59; Admin Dose 1 EA; Start 07/08/16 at 02:00 Miscellaneous Information 1 ea NOTE XX ; Start 07/08/16 at 09:30 Glucose (Glutose) 15 gm Q15M PRN PO DECREASED GLUCOSE; Start 07/08/16 at 09:30 Glucose (Glutose) 22.5 gm Q15M PRN PO DECREASED GLUCOSE; Start 07/08/16 at 09: 30 Dextrose (D50w Syringe) 25 ml Q15M PRN IV DECREASED GLUCOSE Last administered on 07/13/16 08:43; Admin Dose 25 ML; Start 07/08/16 at 09:30 Dextrose (D50w Syringe) 50 ml Q15M PRN IV DECREASED GLUCOSE; Start 07/08/16 at 09:30 Glucagon (Glucagen) 1 mg Q15M PRN IM DECREASED GLUCOSE; Start 07/08/16 at 09:30 Glucose 15 gm 15 gm Q15M PRN BUCCAL DECREASED GLUCOSE; Start 07/08/16 at 09:30 Piperacillin Sod/ Tazobactam Sod (Zosyn 2.25gm/ 50ml (Pmx)) 50 ml @ 100 mls/hr Q8 IVPB Last administered on 07/13/16 16:38; Admin Dose 100 MLS/HR; Start at 14:00 Apixaban 2.5 mg 2.5 mg BID PO ; Start 07/13/16 at 21:00; Status UNV Dextrose/Sodium Chloride (D5-1/2ns) 1,000 ml @ 40 mls/hr Q24H IV Last administered on 07/13/16 13:01; Admin Dose 40 MLS/HR; Start 07/13/16 at 12:30 Polyethylene Glycol (Miralax) 17 gm DAILY PRN PO CONSTIPATION; Start 07/13/16 at 13:00 DARA CAVANAUGH MD Jul 13, 2016 17:10
[2016-07-13] MEDS: COLLAGENASE 30 GM TUBE TOP SCH (17:33)
--- NOTE | 2016-07-13 18:15 | RADRPT ---
PROCEDURE: CT guided bone marrow aspiration and left iliac bone biopsy. CLINICAL INDICATION: History of pancytopenia. TECHNIQUE: Informed consent was obtained. The procedure, risks, benefits, complications and alternatives were e xplained to the patient. Risks including bleeding and infection were explained. The patient understo od and was willing to proceed. A procedural pause was performed. The patient's name, date of , and procedure to be performed were verified. One or more of the following dose reduction techni ques were used: Automated exposure control, adjustment of the mA and/or kV according to patient size , use of iterative reconstruction technique. Using local anesthetic, sterile technique and CT guidance, an 11-gauge On Control bone biopsy needle was advanced into the left iliac bone via a posterior approach. Bone marrow aspiration was perform ed yielding approximately 10 ml. The bone biopsy needle was then advanced an additional 4 cm using the power drill device and tissue was obtained. Adequate tissue was obtained according to the patho logist present during the procedure. The needle was removed. A postprocedural scan was performed. A dressing was applied. The patient tolerated procedure well. COMPARISON: None. FINDINGS: Initial images demonstrate the tip of the needle at the posterior margin of the left iliac bone. Spencer bsequent images demonstrate the needle within the bone. Post biopsy images demonstrate no immediate complication. IMPRESSION: 1. Successful CT guided bone marrow aspiration and biopsy. RPTAT: QQ .Loc Scott MD, Date Time Electronically viewed and signed by .Loc Scott MD, MD on 07/13/2016 18:15 .R/
--- NOTE | 2016-07-13 18:22 | PN ---
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 Continue current management. Continue daily dressing changes. Patient will be monitored in-house. Subjective 24 Hr Interval Summary Patient was seen and examined at bedside. Patient denies any fever or chills. Denies pain in the left lower. Reports bandages of being changed every day as directed. Reports less swelling and denies any redness of pus from the left leg. Constitutional: no complaints Pain Control: well controlled Exam/Review of Systems Vital Signs Vitals Vital Signs Date Time Temp Pulse Resp B/P Pulse Ox O2 Delivery O2 Flow Rate FiO2 07/13/16 15:45 Nasal Cannula 3 07/13/16 15:45 70 18 130/61 94 07/13/16 15:00 98.0 Intake and Output 07/12/16 07/12/16 07/13/16 15:00 23:00 07:00 Intake Total 980 ml 640 ml Output Total 850 ml 550 ml Balance 130 ml 90 ml Exam Free Text/Dictation Patient is in no acute distress. Bandages removed from the left lower extremity. The wound appears to have improved significantly with decreasing swelling. There is no erythema noted in the left lower extremity. Nontender to palpation. There is no pus and no bleeding. Dorsalis pedis and posterior tibial pulses palpable. Protective sensation remains significantly decreased to sharp dull vibratory and temperature stimuli. No other changes noted on examination. Labs were reviewed. Results Result Diagram: 07/13/1630 07/13/1630 SHONDA TOLEDO DPM Jul 13, 2016 18:22
[2016-07-13 18:46] LABS: ALBUMIN 3.1 g/dL (3.8-4.8)
[2016-07-13] MEDS: ATORVASTATIN 10 MG TAB PO SCH (21:29)
[2016-07-13] MEDS: TERAZOSIN 5 MG CAP PO SCH (22:58)
[2016-07-14] MEDS: ACCUCHECK XX SCH (02:00)
[2016-07-14] MEDS: PIPER-TAZO 2.25 GM (PMX) 50 ML IVPB SCH ×3 (05:55→22:26)
[2016-07-14 07:50] VITALS: BP 100/53; RESP 20
[2016-07-14] MEDS: INSULIN ASPART [NOVOLOG] 3 ML PEN SC SCH ×4 (08:00→21:00)
[2016-07-14] MEDS: APIXABAN 5 MG TABLET PO SCH ×3 (09:00→20:48)
[2016-07-14] MEDS: FUROSEMIDE 40 MG TAB PO SCH ×2 (09:32→20:49)
[2016-07-14] MEDS: CALCITRIOL 0.25 MCG CAP PO SCH (09:32)
[2016-07-14] MEDS: AMIODARONE 200 MG TAB PO SCH (09:32)
[2016-07-14] MEDS: LEVOTHYROXINE 25 MCG TAB PO SCH (09:33)
[2016-07-14] MEDS: FERROUS SULFATE (EC) 325 MG TAB PO SCH ×2 (09:33→20:48)
[2016-07-14] MEDS: LINAGLIPTIN 5 MG TABLET PO SCH (09:34)
[2016-07-14] MEDS: INSULIN GLARGINE [LANtus] 3 ML PEN SC SCH (09:37)
[2016-07-14] MEDS: COLLAGENASE 30 GM TUBE TOP SCH (09:38)
--- NOTE | 2016-07-14 13:09 | CONS ---
Date/Time of Note Date/Time of Note DATE: 07/14/16 TIME: 12:58 Assessment/Plan Assessment/Plan Chief Complaint/Hosp Course Patient 76 y/o with multiple medical problems with no recent hx of etoh, has been followed for rt toe osteomyelitis, now admitted for fall with left calf hematoma and cellulitis was found to have hgb 5-6 on admission and macrocytosis with thrombocytopenia which is chronic on review of labs from the hospital records with low normal wbc. Anemia workup reveals high likelihood of MDS. Pt has since undergone a bone marrow bx (1) Anemia, macrocytic Comment: Normal anemia panel but given chronicity and macrocytosis will need to evaluate for BM pathology like MDS as well. Could be chronic disease picture and ultimately will benefit from growth factors as well. -SPEP does not show evidence of underlying monoclonal gammopathy -will check epo level as patient's CKD is a likely contributing factor. after checking epo level will start epogen 10,000units q week -Bone marrow Bx done. will follow up results given concern for MDS. even if patient has MDS epogen would be indicated -Hg now greater than 8. no need for transfusion (2) Thrombocytopenia -no evidence of DIC nor TTP -this is likely secondary to the underlying bone marrow problem -no need for transfusion at this time -will f/u bone marrow bx result as stated above (3) Acute renal failure -appreciate nephrology recs -will start procrit as stated above incase of CKD contributing to anemia Approximately 40 min were spent at patient's bedside and in coordination of his care Problems: Consultation Date/Type/Reason Admit Date/Time Jul 07, 2016 at 16:07 Initial Consult Date 07/10/16 Type of Consultation: Hematology Reason for Consultation anemia Referring Provider: DARA CAVANAUGH MD 24 HR Interval Summary Free Text/Dictation s/p bone marrow bx done yesterday. patient tolerated the procedure well. Exam/Review of Systems Vital Signs Vitals Vital Signs Date Time Temp Pulse Resp B/P Pulse Ox O2 Delivery O2 Flow Rate FiO2 07/14/16 07:50 98.1 65 20 100/53 96 07/13/16 15:45 Nasal Cannula 3 Intake and Output 07/13/16 07/13/16 07/14/16 15:00 23:00 07:00 Intake Total 350 ml 50 ml Output Total 300 ml Balance 50 ml 50 ml Exam Constitutional: alert, oriented Psych: no complaints Head: normocephalic Eyes: nl conjunctiva ENMT: nl external ears & nose, nl lips & teeth Neck: non-tender, supple Respiratory: clear to auscultation, normal air movement Cardiovascular: regular rate and rhythm Gastrointestinal: soft Musculoskeletal: nl extremities to inspection, nl gait and stance Extremities: normal pulses, other (dressing in place on left lower extremity) Results Result Diagram: 07/13/16 0530 07/13/16 0530 Results 24 hrs Laboratory Tests Test 07/13/16 13:49 07/13/16 17:08 07/13/16 20:19 07/14/16 07:51 Bedside Glucose 84 70 126 105 Test 07/14/16 09:45 07/14/16 11:35 Bedside Glucose 121 231 H Medications Medications Current Medications Collagenase (Santyl) 1 applic DAILY TOP Last administered on 07/14/16 09:38; Admin Dose 1 APPLIC; Start 07/08/16 at 09:00 Amiodarone HCl (Cordarone) 200 mg DAILY PO Last administered on 07/14/16 09:32 ; Admin Dose 200 MG; Start 07/08/16 at 09:00 Calcitriol (Rocaltrol) 0.25 mcg DAILY PO Last administered on 07/14/16 09:32; Admin Dose 0.25 MCG; Start 07/08/16 at 09:00 Ferrous Sulfate (Ferrous Sulfate (Ec)) 325 mg BID PO Last administered on 09:33; Admin Dose 325 MG; Start 07/07/16 at 21:00 Furosemide (Lasix) 40 mg BID PO Last administered on 07/14/16 09:32; Admin Dose 40 MG; Start 07/07/16 at 21:00 Insulin Glargine (Lantus) 20 unit QAM SC Last administered on 07/14/16 09:37; Admin Dose 20 UNIT; Start 07/08/16 at 09:00 Levothyroxine Sodium (Synthroid) 25 mcg DAILY PO Last administered on 07/14/16 09:33; Admin Dose 25 MCG; Start 07/08/16 at 09:00 Terazosin HCl (Hytrin) 5 mg HS PO Last administered on 07/13/16 22:58; Admin Dose 5 MG; Start 07/07/16 at 21:00 Atorvastatin Calcium (Lipitor) 10 mg DAILY@21 PO Last administered on 21:29; Admin Dose 10 MG; Start 07/07/16 at 21:00 Linagliptin (Tradjenta) 5 mg DAILY PO Last administered on 07/14/16 09:34; Admin Dose 5 MG; Start 07/07/16 at 19:30 Diagnostic Test (Pha) (Accucheck) 1 ea 02 XX Last administered on 07/09/16 02: 59; Admin Dose 1 EA; Start 07/08/16 at 02:00 Miscellaneous Information 1 ea NOTE XX ; Start 07/08/16 at 09:30 Glucose (Glutose) 15 gm Q15M PRN PO DECREASED GLUCOSE; Start 07/08/16 at 09:30 Glucose (Glutose) 22.5 gm Q15M PRN PO DECREASED GLUCOSE; Start 07/08/16 at 09: 30 Dextrose (D50w Syringe) 25 ml Q15M PRN IV DECREASED GLUCOSE Last administered on 07/13/16 08:43; Admin Dose 25 ML; Start 07/08/16 at 09:30 Dextrose (D50w Syringe) 50 ml Q15M PRN IV DECREASED GLUCOSE; Start 07/08/16 at 09:30 Glucagon (Glucagen) 1 mg Q15M PRN IM DECREASED GLUCOSE; Start 07/08/16 at 09:30 Glucose 15 gm 15 gm Q15M PRN BUCCAL DECREASED GLUCOSE; Start 07/08/16 at 09:30 Piperacillin Sod/ Tazobactam Sod (Zosyn 2.25gm/ 50ml (Pmx)) 50 ml @ 100 mls/hr Q8 IVPB Last administered on 07/14/16 05:55; Admin Dose 100 MLS/HR; Start 07/08 at 14:00 Apixaban (Eliquis) 2.5 mg BID PO Last administered on 07/14/16 09:57; Admin Dose 2.5 MG; Start 07/13/16 at 21:00 Polyethylene Glycol (Miralax) 17 gm DAILY PRN PO CONSTIPATION; Start 07/13/16 at 13:00 TATIANA OROSCO M.D. Jul 14, 2016 13:09
--- NOTE | 2016-07-14 13:10 | CONS ---
DATE OF ADMISSION: 07/07/2016 DATE OF CONSULTATION: TYPE OF CONSULTATION: Mateo orthostatic. REASON FOR CONSULTATION: Evaluation for dialysis access. Thank you, Dr. Vicente, for asking me to see this patient. HISTORY OF PRESENT ILLNESS: This is a 76-year-old male with a left leg wound, chronic wound infect ion who was admitted for local wound care. Subsequently, the patient also has been followed up with his chronic kidney disease with elevation of the creatinine. Currently not on dialysis but will be needing dialysis access in the near future. PAST MEDICAL HISTORY: Significant for hypertension, hyperlipidemia, chronic kidney disease, dyslip idemia, noncompliance, coronary artery disease, PVD. PAST SURGICAL HISTORY: AICD. ALLERGIES: NONE. SOCIAL HISTORY: No smoking, drinking or drug use. MEDICATIONS: 1. Amiodarone. 2. Apixaban. 3. Aspirin. 4. Calcitriol. 5. Iron. 6. Multivitamins. 7. Lasix. 8. Insulin. 9. Levothyroxine. 10. Pravachol. 11. Januvia. 12. Terazosin. REVIEW OF SYSTEMS: HEENT: Unremarkable. RESPIRATORY: No shortness of breath. GASTROINTESTINAL: No upper or lower GI bleeding, nausea, vomiting, constipation, diarrhea. CARDIAC: Positive for clear history of coronary artery disease. PHYSICAL EXAMINATION: GENERAL: The patient is awake and alert, responds appropriately. VITAL SIGNS: Blood pressure at the time of the exam is 100/63, pulse is 65, respirations 20, satura tions 96%. Temperature is 98.1. HEENT: Normocephalic, atraumatic. PERRLA. NECK: Supple. No JVD, no carotid bruits. CARDIOVASCULAR: Regular rate and rhythm. Normal S1, S2. LUNGS: Clear. ABDOMEN: Soft. EXTREMITIES: Warm. Left leg wound that is inspected. There is palpable femoral, no popliteal or p edal pulses. LABORATORY VALUES: Significant for hemoglobin of 8.6, white count 5.7, platelet count 74. INR is 1 .9. IMPRESSION: 1. Chronic kidney disease. 2. Coagulopathy. 3. Left leg wound. RECOMMENDATIONS: We will proceed with venous mapping and proceed with AV fistula when the patient i s medically cleared and coagulopathy has been corrected. Will discuss with Dr. Vicente. Dictated By: BELEM QUEZADA/NTS Conf#: [id number] [facility]#: [id number]
--- NOTE | 2016-07-14 14:05 | CONS ---
Date/Time of Note Date/Time of Note DATE: 07/14/16 TIME: 14:04 Assessment/Plan Assessment/Plan Additional Assessment/Plan IMPRESSION: 1. Anemia, probably of chronic disease. Rule out myelodysplastic syndrome or multiple myeloma. 2. Left leg wound. 3. Hypertension. 4. Diabetes mellitus. 5. Chronic kidney disease. 6. Coronary artery disease. 7. Obesity. 8. Dyslipidemia. 9. Peripheral vascular disease. 10. Noncompliance. PLAN: At this point, is to proceed with bone marrow, stool for occult blood. After bone marrow, will decide whether the patient needs further GI workup or not. At this point, patient has no GI symptoms. awaiting bone marrow biopsy result Consultation Date/Type/Reason Admit Date/Time Jul 07, 2016 at 16:07 Initial Consult Date 07/10/16 Type of Consultation: Hematology Referring Provider: DARA CAVANAUGH MD 24 HR Interval Summary Constitutional: no complaints Exam/Review of Systems Vital Signs Vitals Vital Signs Date Time Temp Pulse Resp B/P Pulse Ox O2 Delivery O2 Flow Rate FiO2 07/14/16 07:50 98.1 65 20 100/53 96 07/13/16 15:45 Nasal Cannula 3 Intake and Output 07/13/16 07/13/16 07/14/16 15:00 23:00 07:00 Intake Total 350 ml 50 ml Output Total 300 ml Balance 50 ml 50 ml Exam Constitutional: alert, oriented, well developed Psych: nl mood/affect, no complaints Head: atraumatic, normocephalic Eyes: EOMI, PERRL, nl conjunctiva, nl lids, nl sclera ENMT: nl external ears & nose, nl lips & teeth, nl nasal mucosa & septum Neck: non-tender, supple Respiratory: clear to auscultation, normal air movement Cardiovascular: nl pulses, regular rate and rhythm Gastrointestinal: nl liver, spleen, non-tender, soft Musculoskeletal: nl extremities to inspection, nl gait and stance Extremities: normal pulses Neurological: MARINE FIREMAN II-XII intact, nl mental status, nl speech, nl strength Skin: nl turgor, No rash or lesions Lymph: nl lymph nodes Results Result Diagram: 07/13/16 0530 07/13/16 0530 Results 24 hrs Laboratory Tests Test 07/13/16 17:08 07/13/16 20:19 07/14/16 07:51 07/14/16 09:45 Bedside Glucose 70 126 105 121 Test 07/14/16 11:35 Bedside Glucose 231 H Medications Medications Current Medications Collagenase (Santyl) 1 applic DAILY TOP Last administered on 07/14/16 09:38; Admin Dose 1 APPLIC; Start 07/08/16 at 09:00 Amiodarone HCl (Cordarone) 200 mg DAILY PO Last administered on 07/14/16 09:32 ; Admin Dose 200 MG; Start 07/08/16 at 09:00 Calcitriol (Rocaltrol) 0.25 mcg DAILY PO Last administered on 07/14/16 09:32; Admin Dose 0.25 MCG; Start 07/08/16 at 09:00 Ferrous Sulfate (Ferrous Sulfate (Ec)) 325 mg BID PO Last administered on 09:33; Admin Dose 325 MG; Start 07/07/16 at 21:00 Furosemide (Lasix) 40 mg BID PO Last administered on 07/14/16 09:32; Admin Dose 40 MG; Start 07/07/16 at 21:00 Insulin Glargine (Lantus) 20 unit QAM SC Last administered on 07/14/16 09:37; Admin Dose 20 UNIT; Start 07/08/16 at 09:00 Levothyroxine Sodium (Synthroid) 25 mcg DAILY PO Last administered on 07/14/16 09:33; Admin Dose 25 MCG; Start 07/08/16 at 09:00 Terazosin HCl (Hytrin) 5 mg HS PO Last administered on 07/13/16 22:58; Admin Dose 5 MG; Start 07/07/16 at 21:00 Atorvastatin Calcium (Lipitor) 10 mg DAILY@21 PO Last administered on 21:29; Admin Dose 10 MG; Start 07/07/16 at 21:00 Linagliptin (Tradjenta) 5 mg DAILY PO Last administered on 07/14/16 09:34; Admin Dose 5 MG; Start 07/07/16 at 19:30 Diagnostic Test (Pha) (Accucheck) 1 ea 02 XX Last administered on 07/09/16 02: 59; Admin Dose 1 EA; Start 07/08/16 at 02:00 Miscellaneous Information 1 ea NOTE XX ; Start 07/08/16 at 09:30 Glucose (Glutose) 15 gm Q15M PRN PO DECREASED GLUCOSE; Start 07/08/16 at 09:30 Glucose (Glutose) 22.5 gm Q15M PRN PO DECREASED GLUCOSE; Start 07/08/16 at 09: 30 Dextrose (D50w Syringe) 25 ml Q15M PRN IV DECREASED GLUCOSE Last administered on 07/13/16 08:43; Admin Dose 25 ML; Start 07/08/16 at 09:30 Dextrose (D50w Syringe) 50 ml Q15M PRN IV DECREASED GLUCOSE; Start 07/08/16 at 09:30 Glucagon (Glucagen) 1 mg Q15M PRN IM DECREASED GLUCOSE; Start 07/08/16 at 09:30 Glucose 15 gm 15 gm Q15M PRN BUCCAL DECREASED GLUCOSE; Start 07/08/16 at 09:30 Piperacillin Sod/ Tazobactam Sod (Zosyn 2.25gm/ 50ml (Pmx)) 50 ml @ 100 mls/hr Q8 IVPB Last administered on 07/14/16 05:55; Admin Dose 100 MLS/HR; Start 07/08 at 14:00 Apixaban (Eliquis) 2.5 mg BID PO Last administered on 07/14/16 09:57; Admin Dose 2.5 MG; Start 07/13/16 at 21:00 Polyethylene Glycol (Miralax) 17 gm DAILY PRN PO CONSTIPATION; Start 07/13/16 at 13:00 Epoetin Mt (Epogen (Oncology)) 10,000 units ONCE ONCE SC ; Start 07/14/16 at 13:30; Stop 07/14/16 at 13:31; Status GOYO EVANGELISTA MD Jul 14, 2016 14:05
--- NOTE | 2016-07-14 15:12 | RADRPT ---
PROCEDURE: US bilateral upper extremity Venous. CLINICAL INDICATION: Renal failure, vein mapping TECHNIQUE: Multiple sonographic images of the bilateral upper lower extremity deep an superficial venous system was obtained utilizing grayscale, color-flow, compressive sonography and doppler imagi ng with augmentation. Measurements were performed. The images were reviewed on a PACS workstation. COMPARISON: 03/17/16 FINDINGS: RIGHT Right basilic vein size: Proximal: 4 mm Mid aspect: 3 mm Distal: 5 mm Right basilic vein size in the forearm: Proximal: 2 mm Mid aspect: 1 mm Distal: 2 mm Right cephalic vein size: Proximal: 5 mm Mid aspect: 3 mm Distal: 4 mm Right cephalic vein size in the forearm: Proximal: 2 mm Mid aspect: 3 mm Distal: 3 mm LEFT Left basilic vein size: Proximal: 3 mm Mid aspect: 4 mm Distal: 5 mm Left basilic vein size in the forearm: Proximal: 1 mm Mid aspect: 2 mm Distal: 2 mm Left cephalic vein size: Proximal: 2 mm Mid aspect: 1 mm Distal: Not seen Left cephalic vein size in the forearm: Proximal: 1 mm Mid aspect: 2 mm Distal: 3 mm IMPRESSION: Vein mapping as described. Central left cephalic vein not visualized. RPTAT: AA .Jay Frey MD, Date Time Electronically viewed and signed by .Jay Frey MD, MD on 07/14/2016 15:11 .S/
--- NOTE | 2016-07-14 16:16 | CONS ---
Date/Time of Note Date/Time of Note DATE: 07/14/16 TIME: 16:16 Assessment/Plan Assessment/Plan Additional Assessment/Plan Additional Assessment/Plan IMPRESSION: 1. Anemia, probably of chronic disease. Rule out myelodysplastic syndrome or multiple myeloma. 2. Left leg wound. 3. Hypertension. 4. Diabetes mellitus. 5. Chronic kidney disease. 6. Coronary artery disease. 7. Obesity. 8. Dyslipidemia. 9. Peripheral vascular disease. 10. Noncompliance. PLAN: At this point, is to proceed with bone marrow, stool for occult blood. After bone marrow, will decide whether the patient needs further GI workup or not. At this point, patient has no GI symptoms. awaiting bone marrow biopsy result Consultation Date/Type/Reason Admit Date/Time Jul 07, 2016 at 16:07 Initial Consult Date 07/10/16 Type of Consultation: Hematology Referring Provider: DARA CAVANAUGH MD 24 HR Interval Summary Constitutional: improved Exam/Review of Systems Vital Signs Vitals Vital Signs Date Time Temp Pulse Resp B/P Pulse Ox O2 Delivery O2 Flow Rate FiO2 07/14/16 07:50 98.1 65 20 100/53 96 07/13/16 15:45 Nasal Cannula 3 Intake and Output 07/13/16 07/13/16 07/14/16 15:00 23:00 07:00 Intake Total 350 ml 50 ml Output Total 300 ml Balance 50 ml 50 ml Exam Constitutional: alert, oriented, well developed Psych: nl mood/affect, no complaints Head: atraumatic, normocephalic Eyes: EOMI, PERRL, nl conjunctiva, nl lids, nl sclera ENMT: nl external ears & nose, nl lips & teeth, nl nasal mucosa & septum Neck: non-tender, supple Respiratory: clear to auscultation, normal air movement Cardiovascular: nl pulses, regular rate and rhythm Gastrointestinal: nl liver, spleen, non-tender, soft Musculoskeletal: nl extremities to inspection, nl gait and stance Extremities: normal pulses Neurological: HIGH MAN II-XII intact, nl mental status, nl speech, nl strength Skin: nl turgor, No rash or lesions Lymph: nl lymph nodes Results Result Diagram: 07/13/16 0530 07/13/16 0530 Results 24 hrs Laboratory Tests Test 07/13/16 17:08 07/13/16 20:19 07/14/16 07:51 07/14/16 09:45 Bedside Glucose 70 126 105 121 Test 07/14/16 11:35 Bedside Glucose 231 H Medications Medications Current Medications Collagenase (Santyl) 1 applic DAILY TOP Last administered on 07/14/16 09:38; Admin Dose 1 APPLIC; Start 07/08/16 at 09:00 Amiodarone HCl (Cordarone) 200 mg DAILY PO Last administered on 07/14/16 09:32 ; Admin Dose 200 MG; Start 07/08/16 at 09:00 Calcitriol (Rocaltrol) 0.25 mcg DAILY PO Last administered on 07/14/16 09:32; Admin Dose 0.25 MCG; Start 07/08/16 at 09:00 Ferrous Sulfate (Ferrous Sulfate (Ec)) 325 mg BID PO Last administered on 09:33; Admin Dose 325 MG; Start 07/07/16 at 21:00 Furosemide (Lasix) 40 mg BID PO Last administered on 07/14/16 09:32; Admin Dose 40 MG; Start 07/07/16 at 21:00 Insulin Glargine (Lantus) 20 unit QAM SC Last administered on 07/14/16 09:37; Admin Dose 20 UNIT; Start 07/08/16 at 09:00 Levothyroxine Sodium (Synthroid) 25 mcg DAILY PO Last administered on 07/14/16 09:33; Admin Dose 25 MCG; Start 07/08/16 at 09:00 Terazosin HCl (Hytrin) 5 mg HS PO Last administered on 07/13/16 22:58; Admin Dose 5 MG; Start 07/07/16 at 21:00 Atorvastatin Calcium (Lipitor) 10 mg DAILY@21 PO Last administered on 21:29; Admin Dose 10 MG; Start 07/07/16 at 21:00 Linagliptin (Tradjenta) 5 mg DAILY PO Last administered on 07/14/16 09:34; Admin Dose 5 MG; Start 07/07/16 at 19:30 Diagnostic Test (Pha) (Accucheck) 1 ea 02 XX Last administered on 07/09/16 02: 59; Admin Dose 1 EA; Start 07/08/16 at 02:00 Miscellaneous Information 1 ea NOTE XX ; Start 07/08/16 at 09:30 Glucose (Glutose) 15 gm Q15M PRN PO DECREASED GLUCOSE; Start 07/08/16 at 09:30 Glucose (Glutose) 22.5 gm Q15M PRN PO DECREASED GLUCOSE; Start 07/08/16 at 09: 30 Dextrose (D50w Syringe) 25 ml Q15M PRN IV DECREASED GLUCOSE Last administered on 07/13/16 08:43; Admin Dose 25 ML; Start 07/08/16 at 09:30 Dextrose (D50w Syringe) 50 ml Q15M PRN IV DECREASED GLUCOSE; Start 07/08/16 at 09:30 Glucagon (Glucagen) 1 mg Q15M PRN IM DECREASED GLUCOSE; Start 07/08/16 at 09:30 Glucose 15 gm 15 gm Q15M PRN BUCCAL DECREASED GLUCOSE; Start 07/08/16 at 09:30 Piperacillin Sod/ Tazobactam Sod (Zosyn 2.25gm/ 50ml (Pmx)) 50 ml @ 100 mls/hr Q8 IVPB Last administered on 07/14/16 15:30; Admin Dose 100 MLS/HR; Start 07/08 at 14:00 Apixaban (Eliquis) 2.5 mg BID PO Last administered on 07/14/16 09:57; Admin Dose 2.5 MG; Start 07/13/16 at 21:00 Polyethylene Glycol (Miralax) 17 gm DAILY PRN PO CONSTIPATION; Start 07/13/16 at 13:00 Epoetin Mt (Epogen (Oncology)) 10,000 units ONCE SC ; Start 07/14/16 at 17:00; Stop 07/14/16 at 20:00 GOYO MILLER MD Jul 14, 2016 16:16
[2016-07-14] MEDS ORDERED: EPOETIN 10000 UNITS/ML VIAL (ONCOLOGY) SC SCH (17:00)
[2016-07-14] MEDS: TERAZOSIN 5 MG CAP PO SCH (20:49)
[2016-07-14] MEDS: ATORVASTATIN 10 MG TAB PO SCH (20:49)
[2016-07-15] MEDS: ACCUCHECK XX SCH (02:00)
[2016-07-15] MEDS: PIPER-TAZO 2.25 GM (PMX) 50 ML IVPB SCH ×3 (05:17→21:50)
[2016-07-15 07:37] VITALS: BP 108/53; RESP 18
[2016-07-15] MEDS: INSULIN ASPART [NOVOLOG] 3 ML PEN SC SCH ×4 (08:00→21:00)
[2016-07-15] MEDS: APIXABAN 5 MG TABLET PO SCH ×2 (09:29→21:45)
[2016-07-15] MEDS: AMIODARONE 200 MG TAB PO SCH (09:29)
[2016-07-15] MEDS: LEVOTHYROXINE 25 MCG TAB PO SCH (09:29)
[2016-07-15] MEDS: CALCITRIOL 0.25 MCG CAP PO SCH (09:29)
[2016-07-15] MEDS: FERROUS SULFATE (EC) 325 MG TAB PO SCH ×2 (09:30→21:44)
[2016-07-15] MEDS: COLLAGENASE 30 GM TUBE TOP SCH (09:30)
[2016-07-15] MEDS: LINAGLIPTIN 5 MG TABLET PO SCH (09:30)
[2016-07-15] MEDS: INSULIN GLARGINE [LANtus] 3 ML PEN SC SCH (09:31)
[2016-07-15 11:28] LABS: BASOPHIL # 0.1 10^3/ul (0.0-0.1); BASOPHILS % 1.2 % (0.0-2.0); EOSINOPHILS # 0.4 10^3/ul (0.0-0.5); EOSINOPHILS % 7.3 % (0.0-7.0); HEMATOCRIT 21.5 % (42.0-52.0); HEMOGLOBIN 7.3 g/dl (14.0-18.0); LYMPHOCYTES # 0.5 10^3/ul (0.8-2.9); MEAN CORPUSCULAR HEMOGLOBIN 32.8 pg (29.0-33.0); MEAN CORPUSCULAR HGB CONC 33.9 g/dl (32.0-37.0); MEAN CORPUSCULAR VOLUME 96.7 fl (82.0-101.0); MEAN PLATELET VOLUME 7.2 fl (7.4-10.4); MONOCYTE # 0.3 10^3/ul (0.3-0.9); NEUTROPHIL # 4.7 10^3/ul (1.6-7.5); NEUTROPHILS % 77.5 % (39.0-77.0); PLATELET COUNT 65 10^3/UL (140-440); RED BLOOD COUNT 2.22 10^6/ul (4.70-6.10); RED CELL DISTRIBUTION WIDTH 17.9 % (11.5-14.5)
[2016-07-15 11:30] LABS: CONDITION 1; LH ANALYZER COMMENTS 1
[2016-07-15 11:39] LABS: POTASSIUM 3.6 mmol/L (3.5-5.1)
[2016-07-15 11:41] LABS: BILIRUBIN,INDIRECT 0.6 mg/dl (0-1.1); BILIRUBIN,TOTAL 0.6 mg/dl (0.2-1.3); CREATININE 4.21 mg/dl (0.61-1.24)
[2016-07-15 11:42] LABS: ALBUMIN/GLOBULIN RATIO 0.9; CALCIUM 8.2 mg/dl (8.4-10.2); TOTAL PROTEIN 6.3 g/dl (6.1-8.1)
[2016-07-15] MEDS: FUROSEMIDE 40 MG TAB PO SCH ×2 (12:19→21:45)
[2016-07-15 12:53] VITALS: BP 117/58; PULSE 66
--- NOTE | 2016-07-15 15:17 | CONS ---
Date/Time of Note Date/Time of Note DATE: 07/15/16 TIME: 15:16 Assessment/Plan Assessment/Plan Chief Complaint/Hosp Course Patient 76 y/o with multiple medical problems with no recent hx of etoh, has been followed for rt toe osteomyelitis, now admitted for fall with left calf hematoma and cellulitis was found to have hgb 5-6 on admission and macrocytosis with thrombocytopenia which is chronic on review of labs from the hospital records with low normal wbc. Anemia workup reveals high likelihood of MDS. Pt has since undergone a bone marrow bx (1) Anemia, macrocytic Comment: Normal anemia panel but given chronicity and macrocytosis will need to evaluate for BM pathology like MDS as well. Could be chronic disease picture and ultimately will benefit from growth factors as well. -SPEP does not show evidence of underlying monoclonal gammopathy -will check epo level as patient's CKD is a likely contributing factor. f/u epo level. epogen 10,000units q week was started yesterday -Bone marrow Bx done. will follow up results given concern for MDS. even if patient has MDS epogen would be indicated -Hg now greater than 8. no need for transfusion (2) Thrombocytopenia -no evidence of DIC nor TTP -this is likely secondary to the underlying bone marrow problem -no need for transfusion at this time -will f/u bone marrow bx result as stated above (3) Acute renal failure -appreciate nephrology recs -will start procrit as stated above incase of CKD contributing to anemia Approximately 40 min were spent at patient's bedside and in coordination of his care Problems: Consultation Date/Type/Reason Admit Date/Time Jul 07, 2016 at 16:07 Initial Consult Date 07/10/16 Type of Consultation: Hematology Reason for Consultation anemia Referring Provider: DARA CAVANAUGH MD 24 HR Interval Summary Free Text/Dictation pt has been refusing dialysis thus far Exam/Review of Systems Vital Signs Vitals Vital Signs Date Time Temp Pulse Resp B/P Pulse Ox O2 Delivery O2 Flow Rate FiO2 07/15/16 12:53 66 117/58 07/15/16 07:37 98.5 18 97 07/13/16 15:45 Nasal Cannula 3 Intake and Output 07/14/16 07/14/16 07/15/16 15:00 23:00 07:00 Intake Total 1780 ml 790 ml Output Total 200 ml Balance 1580 ml 790 ml Exam Constitutional: alert, oriented Psych: no complaints Head: atraumatic, normocephalic Eyes: nl conjunctiva ENMT: nl external ears & nose Neck: non-tender, supple Respiratory: clear to auscultation Cardiovascular: nl pulses, regular rate and rhythm Gastrointestinal: soft Musculoskeletal: nl extremities to inspection, nl gait and stance Extremities: normal pulses Results Result Diagram: 07/15/16 1050 07/15/16 1050 Results 24 hrs Laboratory Tests Test 07/14/16 17:31 07/14/16 20:47 07/15/16 08:05 07/15/16 09:33 Bedside Glucose 154 143 71 118 Test 07/15/16 10:50 07/15/16 11:49 Alanine Aminotransferase (ALT/SGPT) 23 Albumin 3.0 L Albumin/Globulin Ratio 0.90 Alkaline Phosphatase 95 Anion Gap 17 H Aspartate Amino Transf (AST/SGOT) 17 Basophils # 0.1 Basophils % 1.2 Blood Morphology Comment Blood Urea Nitrogen 62 H Calcium Level 8.2 L Carbon Dioxide Level 25 Chloride Level 101 Creatinine 4.21 H Direct Bilirubin 0.00 Eosinophils # 0.4 Eosinophils % 7.3 H Globulin 3.30 H Glucose Level 100 Hematocrit 21.5 L Hemoglobin 7.3 L Indirect Bilirubin 0.6 Lymphocytes # 0.5 L Lymphocytes % 9.0 L Mean Corpuscular Hemoglobin 32.8 Mean Corpuscular Hemoglobin Concent 33.9 Mean Corpuscular Volume 96.7 Mean Platelet Volume 7.2 L Monocytes # 0.3 Monocytes % 5.0 Neutrophils # 4.7 Neutrophils % 77.5 H Nucleated Red Blood Cells # 0.0 Nucleated Red Blood Cells % 0.0 Platelet Count 65 L Potassium Level 3.6 Red Blood Count 2.22 L Red Cell Distribution Width 17.9 H Sodium Level 139 Total Bilirubin 0.6 Total Protein 6.3 White Blood Count 6.0 Bedside Glucose 151 Medications Medications Current Medications Collagenase (Santyl) 1 applic DAILY TOP Last administered on 07/15/16 09:30; Admin Dose 1 APPLIC; Start 07/08/16 at 09:00 Amiodarone HCl (Cordarone) 200 mg DAILY PO Last administered on 07/15/16 09:29 ; Admin Dose 200 MG; Start 07/08/16 at 09:00 Calcitriol (Rocaltrol) 0.25 mcg DAILY PO Last administered on 07/15/16 09:29; Admin Dose 0.25 MCG; Start 07/08/16 at 09:00 Ferrous Sulfate (Ferrous Sulfate (Ec)) 325 mg BID PO Last administered on 09:30; Admin Dose 325 MG; Start 07/07/16 at 21:00 Furosemide (Lasix) 40 mg BID PO Last administered on 07/15/16 12:19; Admin Dose 40 MG; Start 07/07/16 at 21:00 Insulin Glargine (Lantus) 20 unit QAM SC Last administered on 07/15/16 09:31; Admin Dose 20 UNIT; Start 07/08/16 at 09:00 Levothyroxine Sodium (Synthroid) 25 mcg DAILY PO Last administered on 07/15/16 09:29; Admin Dose 25 MCG; Start 07/08/16 at 09:00 Terazosin HCl (Hytrin) 5 mg HS PO Last administered on 07/14/16 20:49; Admin Dose 5 MG; Start 07/07/16 at 21:00 Atorvastatin Calcium (Lipitor) 10 mg DAILY@21 PO Last administered on 07/14/16 20:49; Admin Dose 10 MG; Start 07/07/16 at 21:00 Linagliptin (Tradjenta) 5 mg DAILY PO Last administered on 07/15/16 09:30; Admin Dose 5 MG; Start 07/07/16 at 19:30 Diagnostic Test (Pha) (Accucheck) 1 ea 02 XX Last administered on 07/09/16 02: 59; Admin Dose 1 EA; Start 07/08/16 at 02:00 Miscellaneous Information 1 ea NOTE XX ; Start 07/08/16 at 09:30 Glucose (Glutose) 15 gm Q15M PRN PO DECREASED GLUCOSE; Start 07/08/16 at 09:30 Glucose (Glutose) 22.5 gm Q15M PRN PO DECREASED GLUCOSE; Start 07/08/16 at 09: 30 Dextrose (D50w Syringe) 25 ml Q15M PRN IV DECREASED GLUCOSE Last administered on 07/13/16 08:43; Admin Dose 25 ML; Start 07/08/16 at 09:30 Dextrose (D50w Syringe) 50 ml Q15M PRN IV DECREASED GLUCOSE; Start 07/08/16 at 09:30 Glucagon (Glucagen) 1 mg Q15M PRN IM DECREASED GLUCOSE; Start 07/08/16 at 09:30 Glucose 15 gm 15 gm Q15M PRN BUCCAL DECREASED GLUCOSE; Start 07/08/16 at 09:30 Piperacillin Sod/ Tazobactam Sod (Zosyn 2.25gm/ 50ml (Pmx)) 50 ml @ 100 mls/hr Q8 IVPB Last administered on 07/15/16 13:14; Admin Dose 100 MLS/HR; Start 07/08 at 14:00 Apixaban (Eliquis) 2.5 mg BID PO Last administered on 07/15/16 09:29; Admin Dose 2.5 MG; Start 07/13/16 at 21:00 Polyethylene Glycol (Miralax) 17 gm DAILY PRN PO CONSTIPATION; Start 07/13/16 at 13:00 TATIANA OROSCO M.D. Jul 15, 2016 15:17
--- NOTE | 2016-07-15 17:36 | PN ---
Date/Time of Note Date/Time of Note DATE: 07/15/16 TIME: 17:35 Assessment/Plan VTE Prophylaxis VTE Prophylaxis Intervention: other Lines/Catheters IV Catheter Type (from [email or web address] Peripheral IV Urinary Cath still in place: No Assessment/Plan Chief Complaint/Hosp Course IMPRESSION: 1. Left leg wound. 2. Hypertension. 3. Diabetes mellitus. 4. Chronic kidney disease.4 5. Coronary artery disease. 6. Atherosclerotic heart disease. 7. Dyslipidemia. 8. Obesity. 9. Peripheral vascular disease. 10. Noncompliance. 11 anemia [address] xie antibiotic AVF ck labs prbc CK BIOPSY prbc av fistula Problems: Subjective 24 Hr Interval Summary Cardiovascular: no complaints Gastrointestinal: no complaints Exam/Review of Systems Vital Signs Vitals Vital Signs Date Time Temp Pulse Resp B/P Pulse Ox O2 Delivery O2 Flow Rate FiO2 07/15/16 12:53 66 117/58 07/15/16 07:37 98.5 18 97 07/13/16 15:45 Nasal Cannula 3 Intake and Output 07/14/16 07/14/16 07/15/16 15:00 23:00 07:00 Intake Total 1780 ml 790 ml Output Total 200 ml Balance 1580 ml 790 ml Exam Cardiovascular: regular rate and rhythm Gastrointestinal: soft Musculoskeletal: nl extremities to inspection Extremities: normal pulses Results Result Diagram: 07/15/16 1050 07/15/16 1050 Results 24 hrs Laboratory Tests Test 07/14/16 20:47 07/15/16 08:05 07/15/16 09:33 07/15/16 10:50 Bedside Glucose 143 71 118 Alanine Aminotransferase (ALT/SGPT) 23 Albumin 3.0 L Albumin/Globulin Ratio 0.90 Alkaline Phosphatase 95 Anion Gap 17 H Aspartate Amino Transf (AST/SGOT) 17 Basophils # 0.1 Basophils % 1.2 Blood Morphology Comment Blood Urea Nitrogen 62 H Calcium Level 8.2 L Carbon Dioxide Level 25 Chloride Level 101 Creatinine 4.21 H Direct Bilirubin 0.00 Eosinophils # 0.4 Eosinophils % 7.3 H Globulin 3.30 H Glucose Level 100 Hematocrit 21.5 L Hemoglobin 7.3 L Indirect Bilirubin 0.6 Lymphocytes # 0.5 L Lymphocytes % 9.0 L Mean Corpuscular Hemoglobin 32.8 Mean Corpuscular Hemoglobin Concent 33.9 Mean Corpuscular Volume 96.7 Mean Platelet Volume 7.2 L Monocytes # 0.3 Monocytes % 5.0 Neutrophils # 4.7 Neutrophils % 77.5 H Nucleated Red Blood Cells # 0.0 Nucleated Red Blood Cells % 0.0 Platelet Count 65 L Potassium Level 3.6 Red Blood Count 2.22 L Red Cell Distribution Width 17.9 H Sodium Level 139 Total Bilirubin 0.6 Total Protein 6.3 White Blood Count 6.0 Test 07/15/16 11:49 07/15/16 17:12 Bedside Glucose 151 104 Medications Medications Current Medications Collagenase (Santyl) 1 applic DAILY TOP Last administered on 07/15/16 09:30; Admin Dose 1 APPLIC; Start 07/08/16 at 09:00 Amiodarone HCl (Cordarone) 200 mg DAILY PO Last administered on 07/15/16 09:29 ; Admin Dose 200 MG; Start 07/08/16 at 09:00 Calcitriol (Rocaltrol) 0.25 mcg DAILY PO Last administered on 07/15/16 09:29; Admin Dose 0.25 MCG; Start 07/08/16 at 09:00 Ferrous Sulfate (Ferrous Sulfate (Ec)) 325 mg BID PO Last administered on 09:30; Admin Dose 325 MG; Start 07/07/16 at 21:00 Furosemide (Lasix) 40 mg BID PO Last administered on 07/15/16 12:19; Admin Dose 40 MG; Start 07/07/16 at 21:00 Insulin Glargine (Lantus) 20 unit QAM SC Last administered on 07/15/16 09:31; Admin Dose 20 UNIT; Start 07/08/16 at 09:00 Levothyroxine Sodium (Synthroid) 25 mcg DAILY PO Last administered on 07/15/16 09:29; Admin Dose 25 MCG; Start 07/08/16 at 09:00 Terazosin HCl (Hytrin) 5 mg HS PO Last administered on 07/14/16 20:49; Admin Dose 5 MG; Start 07/07/16 at 21:00 Atorvastatin Calcium (Lipitor) 10 mg DAILY@21 PO Last administered on 07/14/16 20:49; Admin Dose 10 MG; Start 07/07/16 at 21:00 Linagliptin (Tradjenta) 5 mg DAILY PO Last administered on 07/15/16 09:30; Admin Dose 5 MG; Start 07/07/16 at 19:30 Diagnostic Test (Pha) (Accucheck) 1 ea 02 XX Last administered on 07/09/16 02: 59; Admin Dose 1 EA; Start 07/08/16 at 02:00 Miscellaneous Information 1 ea NOTE XX ; Start 07/08/16 at 09:30 Glucose (Glutose) 15 gm Q15M PRN PO DECREASED GLUCOSE; Start 07/08/16 at 09:30 Glucose (Glutose) 22.5 gm Q15M PRN PO DECREASED GLUCOSE; Start 07/08/16 at 09: 30 Dextrose (D50w Syringe) 25 ml Q15M PRN IV DECREASED GLUCOSE Last administered on 07/13/16 08:43; Admin Dose 25 ML; Start 07/08/16 at 09:30 Dextrose (D50w Syringe) 50 ml Q15M PRN IV DECREASED GLUCOSE; Start 07/08/16 at 09:30 Glucagon (Glucagen) 1 mg Q15M PRN IM DECREASED GLUCOSE; Start 07/08/16 at 09:30 Glucose 15 gm 15 gm Q15M PRN BUCCAL DECREASED GLUCOSE; Start 07/08/16 at 09:30 Piperacillin Sod/ Tazobactam Sod (Zosyn 2.25gm/ 50ml (Pmx)) 50 ml @ 100 mls/hr Q8 IVPB Last administered on 07/15/16 13:14; Admin Dose 100 MLS/HR; Start 07/08 at 14:00 Apixaban (Eliquis) 2.5 mg BID PO Last administered on 07/15/16 09:29; Admin Dose 2.5 MG; Start 07/13/16 at 21:00 Polyethylene Glycol (Miralax) 17 gm DAILY PRN PO CONSTIPATION; Start 07/13/16 at 13:00 DARA CAVANAUGH MD Jul 15, 2016 17:36
[2016-07-15 20:11] VITALS: BP 101/54; RESP 18
--- NOTE | 2016-07-15 20:47 | CONS ---
Date/Time of Note Date/Time of Note DATE: 07/15/16 TIME: 20:45 Assessment/Plan Assessment/Plan Additional Assessment/Plan Additional Assessment/Plan IMPRESSION: 1. Anemia, probably of chronic disease. Rule out myelodysplastic syndrome or multiple myeloma. 2. Left leg wound. 3. Hypertension. 4. Diabetes mellitus. 5. Chronic kidney disease. 6. Coronary artery disease. 7. Obesity. 8. Dyslipidemia. 9. Peripheral vascular disease. 10. Noncompliance. PLAN: At this point, is to proceed with bone marrow, stool for occult blood. After bone marrow, will decide whether the patient needs further GI workup or not. At this point, patient has no GI symptoms. awaiting bone marrow biopsy result Consultation Date/Type/Reason Admit Date/Time Jul 07, 2016 at 16:07 Initial Consult Date 07/10/16 Type of Consultation: Hematology Referring Provider: DARA CAVANAUGH MD 24 HR Interval Summary Constitutional: no complaints Exam/Review of Systems Vital Signs Vitals Vital Signs Date Time Temp Pulse Resp B/P Pulse Ox O2 Delivery O2 Flow Rate FiO2 07/15/16 20:11 97.5 64 18 101/54 98 07/13/16 15:45 Nasal Cannula 3 Intake and Output 07/14/16 07/14/16 07/15/16 15:00 23:00 07:00 Intake Total 1780 ml 790 ml Output Total 200 ml Balance 1580 ml 790 ml Exam Constitutional: alert, oriented, well developed Psych: nl mood/affect, no complaints Head: atraumatic, normocephalic Eyes: EOMI, PERRL, nl conjunctiva, nl lids, nl sclera ENMT: nl external ears & nose, nl lips & teeth, nl nasal mucosa & septum Neck: non-tender, supple Respiratory: clear to auscultation, normal air movement Cardiovascular: nl pulses, regular rate and rhythm Gastrointestinal: nl liver, spleen, non-tender, soft Musculoskeletal: nl extremities to inspection, nl gait and stance Extremities: normal pulses 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, nl mental status, nl speech, nl strength Skin: nl turgor, No rash or lesions Lymph: nl lymph nodes Results Result Diagram: 07/15/16 1050 07/15/16 1050 Results 24 hrs Laboratory Tests Test 07/14/16 20:47 07/15/16 08:05 07/15/16 09:33 07/15/16 10:50 Bedside Glucose 143 71 118 Alanine Aminotransferase (ALT/SGPT) 23 Albumin 3.0 L Albumin/Globulin Ratio 0.90 Alkaline Phosphatase 95 Anion Gap 17 H Aspartate Amino Transf (AST/SGOT) 17 Basophils # 0.1 Basophils % 1.2 Blood Morphology Comment Blood Urea Nitrogen 62 H Calcium Level 8.2 L Carbon Dioxide Level 25 Chloride Level 101 Creatinine 4.21 H Direct Bilirubin 0.00 Eosinophils # 0.4 Eosinophils % 7.3 H Globulin 3.30 H Glucose Level 100 Hematocrit 21.5 L Hemoglobin 7.3 L Indirect Bilirubin 0.6 Lymphocytes # 0.5 L Lymphocytes % 9.0 L Mean Corpuscular Hemoglobin 32.8 Mean Corpuscular Hemoglobin Concent 33.9 Mean Corpuscular Volume 96.7 Mean Platelet Volume 7.2 L Monocytes # 0.3 Monocytes % 5.0 Neutrophils # 4.7 Neutrophils % 77.5 H Nucleated Red Blood Cells # 0.0 Nucleated Red Blood Cells % 0.0 Platelet Count 65 L Potassium Level 3.6 Red Blood Count 2.22 L Red Cell Distribution Width 17.9 H Sodium Level 139 Total Bilirubin 0.6 Total Protein 6.3 White Blood Count 6.0 Test 07/15/16 11:49 07/15/16 17:12 Bedside Glucose 151 104 Medications Medications Current Medications Collagenase (Santyl) 1 applic DAILY TOP Last administered on 07/15/16 09:30; Admin Dose 1 APPLIC; Start 07/08/16 at 09:00 Amiodarone HCl (Cordarone) 200 mg DAILY PO Last administered on 07/15/16 09:29 ; Admin Dose 200 MG; Start 07/08/16 at 09:00 Calcitriol (Rocaltrol) 0.25 mcg DAILY PO Last administered on 07/15/16 09:29; Admin Dose 0.25 MCG; Start 07/08/16 at 09:00 Ferrous Sulfate (Ferrous Sulfate (Ec)) 325 mg BID PO Last administered on 09:30; Admin Dose 325 MG; Start 07/07/16 at 21:00 Furosemide (Lasix) 40 mg BID PO Last administered on 07/15/16 12:19; Admin Dose 40 MG; Start 07/07/16 at 21:00 Insulin Glargine (Lantus) 20 unit QAM SC Last administered on 07/15/16 09:31; Admin Dose 20 UNIT; Start 07/08/16 at 09:00 Levothyroxine Sodium (Synthroid) 25 mcg DAILY PO Last administered on 07/15/16 09:29; Admin Dose 25 MCG; Start 07/08/16 at 09:00 Terazosin HCl (Hytrin) 5 mg HS PO Last administered on 07/14/16 20:49; Admin Dose 5 MG; Start 07/07/16 at 21:00 Atorvastatin Calcium (Lipitor) 10 mg DAILY@21 PO Last administered on 07/14/16 20:49; Admin Dose 10 MG; Start 07/07/16 at 21:00 Linagliptin (Tradjenta) 5 mg DAILY PO Last administered on 07/15/16 09:30; Admin Dose 5 MG; Start 07/07/16 at 19:30 Diagnostic Test (Pha) (Accucheck) 1 ea 02 XX Last administered on 07/09/16 02: 59; Admin Dose 1 EA; Start 07/08/16 at 02:00 Miscellaneous Information 1 ea NOTE XX ; Start 07/08/16 at 09:30 Glucose (Glutose) 15 gm Q15M PRN PO DECREASED GLUCOSE; Start 07/08/16 at 09:30 Glucose (Glutose) 22.5 gm Q15M PRN PO DECREASED GLUCOSE; Start 07/08/16 at 09: 30 Dextrose (D50w Syringe) 25 ml Q15M PRN IV DECREASED GLUCOSE Last administered on 07/13/16 08:43; Admin Dose 25 ML; Start 07/08/16 at 09:30 Dextrose (D50w Syringe) 50 ml Q15M PRN IV DECREASED GLUCOSE; Start 07/08/16 at 09:30 Glucagon (Glucagen) 1 mg Q15M PRN IM DECREASED GLUCOSE; Start 07/08/16 at 09:30 Glucose 15 gm 15 gm Q15M PRN BUCCAL DECREASED GLUCOSE; Start 07/08/16 at 09:30 Piperacillin Sod/ Tazobactam Sod (Zosyn 2.25gm/ 50ml (Pmx)) 50 ml @ 100 mls/hr Q8 IVPB Last administered on 07/15/16 13:14; Admin Dose 100 MLS/HR; Start 07/08 at 14:00 Apixaban (Eliquis) 2.5 mg BID PO Last administered on 07/15/16 09:29; Admin Dose 2.5 MG; Start 07/13/16 at 21:00 Polyethylene Glycol (Miralax) 17 gm DAILY PRN PO CONSTIPATION; Start 07/13/16 at 13:00 GOYO MILLER MD Jul 15, 2016 20:47
[2016-07-15] MEDS: ATORVASTATIN 10 MG TAB PO SCH (21:44)
[2016-07-15] MEDS: TERAZOSIN 5 MG CAP PO SCH (23:01)
[2016-07-16] MEDS: ACCUCHECK XX SCH (02:00)
[2016-07-16] MEDS ORDERED: ZOLPIDEM 5 MG TAB PO PRN (03:00)
[2016-07-16] MEDS: PIPER-TAZO 2.25 GM (PMX) 50 ML IVPB SCH ×3 (05:59→22:14)
[2016-07-16 06:20] LABS: BASOPHIL # 0.1 10^3/ul (0.0-0.1); EOSINOPHILS # 0.5 10^3/ul (0.0-0.5); EOSINOPHILS % 7.3 % (0.0-7.0); HEMOGLOBIN 8.2 g/dl (14.0-18.0); LYMPHOCYTES # 0.6 10^3/ul (0.8-2.9); LYMPHOCYTES % 9.9 % (15.0-51.0); MEAN CORPUSCULAR HEMOGLOBIN 33.1 pg (29.0-33.0); MEAN CORPUSCULAR HGB CONC 34.2 g/dl (32.0-37.0); MEAN PLATELET VOLUME 7.7 fl (7.4-10.4); MONOCYTE # 0.3 10^3/ul (0.3-0.9); MONOCYTES % 4.2 % (0.0-11.0); NEUTROPHIL # 4.9 10^3/ul (1.6-7.5); NEUTROPHILS % 77.6 % (39.0-77.0); RED BLOOD COUNT 2.48 10^6/ul (4.70-6.10); RED CELL DISTRIBUTION WIDTH 17.4 % (11.5-14.5); UNCORRECTED WBC 6.3 10^3/ul (4.8-10.8); WHITE BLOOD COUNT 6.3 10^3/ul (4.8-10.8)
[2016-07-16 06:49] LABS: CONDITION 1
[2016-07-16 06:50] LABS: LH ANALYZER COMMENTS 1; PLATELET COUNT 63 10^3/UL (140-440)
[2016-07-16] MEDS: DEXTROSE 50% 50 ML SYRINGE IV PRN (07:56)
[2016-07-16] MEDS: INSULIN ASPART [NOVOLOG] 3 ML PEN SC SCH ×4 (08:00→21:00)
[2016-07-16 08:05] VITALS: BP 106/55; RESP 16
[2016-07-16] MEDS: DEXTROSE 5%-0.45% NACL 1,000 ML IV SCH (08:21)
[2016-07-16] MEDS: FERROUS SULFATE (EC) 325 MG TAB PO SCH ×2 (09:00→21:00)
[2016-07-16] MEDS: LINAGLIPTIN 5 MG TABLET PO SCH (09:00)
[2016-07-16] MEDS: APIXABAN 5 MG TABLET PO SCH ×2 (09:00→22:14)
[2016-07-16] MEDS: FUROSEMIDE 40 MG TAB PO SCH ×2 (09:00→22:15)
[2016-07-16] MEDS: LEVOTHYROXINE 25 MCG TAB PO SCH (09:00)
[2016-07-16] MEDS: INSULIN GLARGINE [LANtus] 3 ML PEN SC SCH (09:00)
[2016-07-16] MEDS: AMIODARONE 200 MG TAB PO SCH (10:22)
[2016-07-16] MEDS: CALCITRIOL 0.25 MCG CAP PO SCH (10:23)
[2016-07-16] MEDS: COLLAGENASE 30 GM TUBE TOP SCH (11:47)
--- NOTE | 2016-07-16 14:11 | CONS ---
Date/Time of Note Date/Time of Note DATE: 07/16/16 TIME: 14:04 Assessment/Plan Assessment/Plan Chief Complaint/Hosp Course Patient 76 y/o with multiple medical problems with no recent hx of etoh, has been followed for rt toe osteomyelitis, now admitted for fall with left calf hematoma and cellulitis was found to have hgb 5-6 on admission and macrocytosis with thrombocytopenia which is chronic on review of labs from the hospital records with low normal wbc. Anemia workup reveals high likelihood of MDS. Pt has since undergone a bone marrow bx (1) Anemia, macrocytic Comment: Normal anemia panel but given chronicity and macrocytosis will need to evaluate for BM pathology like MDS as well. Could be chronic disease picture and ultimately will benefit from growth factors as well. -SPEP does not show evidence of underlying monoclonal gammopathy -will check epo level as patient's CKD is a likely contributing factor. f/u epo level. will start epogen 10,000units three x week with hemodialysis -Bone marrow Bx done. will follow up results given concern for MDS. even if patient has MDS epogen would be indicated -Hg now greater than 8. no need for transfusion (2) Thrombocytopenia -no evidence of DIC nor TTP -this is likely secondary to the underlying bone marrow problem -no need for transfusion at this time -will f/u bone marrow bx result as stated above (3) Acute renal failure -appreciate nephrology recs -will start procrit as stated above incase of CKD contributing to anemia Approximately 40 min were spent at patient's bedside and in coordination of his care Problems: Consultation Date/Type/Reason Admit Date/Time Jul 07, 2016 at 16:07 Initial Consult Date 07/10/16 Type of Consultation: Hematology Reason for Consultation anemia Referring Provider: DARA CAVANAUGH MD 24 HR Interval Summary Free Text/Dictation no acute overnight events. pt to start dialysis Exam/Review of Systems Vital Signs Vitals Vital Signs Date Time Temp Pulse Resp B/P Pulse Ox O2 Delivery O2 Flow Rate FiO2 07/16/16 08:05 97.5 64 16 106/55 97 07/13/16 15:45 Nasal Cannula 3 Intake and Output 07/15/16 07/15/16 07/16/16 15:00 23:00 07:00 Intake Total 50 ml 1490 ml 1120 ml Output Total 900 ml 1000 ml Balance 50 ml 590 ml 120 ml Exam Constitutional: alert, oriented Psych: no complaints Head: atraumatic, normocephalic Eyes: nl conjunctiva ENMT: nl external ears & nose Neck: non-tender, supple Respiratory: clear to auscultation, normal air movement Cardiovascular: regular rate and rhythm Gastrointestinal: soft Musculoskeletal: nl extremities to inspection, nl gait and stance Extremities: normal pulses Results Result Diagram: 07/16/16 0510 07/15/16 1050 Results 24 hrs Laboratory Tests Test 07/15/16 17:12 07/15/16 21:51 07/16/16 05:10 07/16/16 07:48 Bedside Glucose 104 105 62 L Basophils # 0.1 Basophils % 1.0 Blood Morphology Comment Eosinophils # 0.5 Eosinophils % 7.3 H Hematocrit 24.0 L Hemoglobin 8.2 L Lymphocytes # 0.6 L Lymphocytes % 9.9 L Mean Corpuscular Hemoglobin 33.1 H Mean Corpuscular Hemoglobin Concent 34.2 Mean Corpuscular Volume 97.0 Mean Platelet Volume 7.7 Monocytes # 0.3 Monocytes % 4.2 Neutrophils # 4.9 Neutrophils % 77.6 H Nucleated Red Blood Cells # 0.0 Nucleated Red Blood Cells % 0.0 Platelet Count 63 L Red Blood Count 2.48 L Red Cell Distribution Width 17.4 H White Blood Count 6.3 Test 07/16/16 08:30 07/16/16 09:51 07/16/16 11:45 Bedside Glucose 125 80 80 Medications Medications Current Medications Collagenase (Santyl) 1 applic DAILY TOP Last administered on 07/16/16 11:47; Admin Dose 1 APPLIC; Start 07/08/16 at 09:00 Amiodarone HCl (Cordarone) 200 mg DAILY PO Last administered on 07/15/16 09:29 ; Admin Dose 200 MG; Start 07/08/16 at 09:00 Calcitriol (Rocaltrol) 0.25 mcg DAILY PO Last administered on 07/15/16 09:29; Admin Dose 0.25 MCG; Start 07/08/16 at 09:00 Ferrous Sulfate (Ferrous Sulfate (Ec)) 325 mg BID PO Last administered on 21:44; Admin Dose 325 MG; Start 07/07/16 at 21:00 Furosemide (Lasix) 40 mg BID PO Last administered on 07/15/16 21:45; Admin Dose 40 MG; Start 07/07/16 at 21:00 Insulin Glargine (Lantus) 20 unit QAM SC Last administered on 07/15/16 09:31; Admin Dose 20 UNIT; Start 07/08/16 at 09:00 Levothyroxine Sodium (Synthroid) 25 mcg DAILY PO Last administered on 07/15/16 09:29; Admin Dose 25 MCG; Start 07/08/16 at 09:00 Terazosin HCl (Hytrin) 5 mg HS PO Last administered on 07/15/16 23:01; Admin Dose 5 MG; Start 07/07/16 at 21:00 Atorvastatin Calcium (Lipitor) 10 mg DAILY@21 PO Last administered on 07/15/16 21:44; Admin Dose 10 MG; Start 07/07/16 at 21:00 Linagliptin (Tradjenta) 5 mg DAILY PO Last administered on 07/15/16 09:30; Admin Dose 5 MG; Start 07/07/16 at 19:30 Diagnostic Test (Pha) (Accucheck) 1 ea 02 XX Last administered on 07/09/16 02: 59; Admin Dose 1 EA; Start 07/08/16 at 02:00 Miscellaneous Information 1 ea NOTE XX ; Start 07/08/16 at 09:30 Glucose (Glutose) 15 gm Q15M PRN PO DECREASED GLUCOSE; Start 07/08/16 at 09:30 Glucose (Glutose) 22.5 gm Q15M PRN PO DECREASED GLUCOSE; Start 07/08/16 at 09: 30 Dextrose (D50w Syringe) 25 ml Q15M PRN IV DECREASED GLUCOSE Last administered on 07/16/16 07:56; Admin Dose 25 ML; Start 07/08/16 at 09:30 Dextrose (D50w Syringe) 50 ml Q15M PRN IV DECREASED GLUCOSE; Start 07/08/16 at 09:30 Glucagon (Glucagen) 1 mg Q15M PRN IM DECREASED GLUCOSE; Start 07/08/16 at 09:30 Glucose 15 gm 15 gm Q15M PRN BUCCAL DECREASED GLUCOSE; Start 07/08/16 at 09:30 Piperacillin Sod/ Tazobactam Sod (Zosyn 2.25gm/ 50ml (Pmx)) 50 ml @ 100 mls/hr Q8 IVPB Last administered on 07/16/16 05:59; Admin Dose 100 MLS/HR; Start 07/08 at 14:00 Apixaban (Eliquis) 2.5 mg BID PO Last administered on 07/15/16 21:45; Admin Dose 2.5 MG; Start 07/13/16 at 21:00 Polyethylene Glycol (Miralax) 17 gm DAILY PRN PO CONSTIPATION; Start 07/13/16 at 13:00 Zolpidem Tartrate 5 mg 5 mg HS PRN PO INSOMNIA Last administered on 07/16/16 03 :01; Admin Dose 5 MG; Start 07/16/16 at 03:00 Dextrose/Sodium Chloride (D5-1/2ns) 1,000 ml @ 50 mls/hr Q20H IV Last administered on 07/16/16 08:21; Admin Dose 50 MLS/HR; Start 07/16/16 at 08:00 TATIANA OROSCO M.D. Jul 16, 2016 14:11
--- NOTE | 2016-07-16 17:26 | PN ---
Date/Time of Note Date/Time of Note DATE: 07/16/16 TIME: 17:25 Assessment/Plan VTE Prophylaxis VTE Prophylaxis Intervention: other Lines/Catheters IV C[facility] Type (from [facility]): Saline Lock Urinary Cath still in place: No Assessment/Plan Chief Complaint/Hosp Course IMPRESSION: 1. Left leg wound. 2. Hypertension. 3. Diabetes mellitus. 4. Chronic kidney disease.4 5. Coronary artery disease. 6. Atherosclerotic heart disease. 7. Dyslipidemia. 8. Obesity. 9. Peripheral vascular disease. 10. Noncompliance. 11 anemia [address] xie antibiotic AVF ck labs prbc CK BIOPSY prbc av fistula SOON Problems: Subjective 24 Hr Interval Summary Respiratory: no complaints Cardiovascular: no complaints Exam/Review of Systems Vital Signs Vitals Vital Signs Date Time Temp Pulse Resp B/P Pulse Ox O2 Delivery O2 Flow Rate FiO2 07/16/16 08:05 97.5 64 16 106/55 97 07/13/16 15:45 Nasal Cannula 3 Intake and Output 07/15/16 07/15/16 07/16/16 15:00 23:00 07:00 Intake Total 50 ml 1490 ml 1120 ml Output Total 900 ml 1000 ml Balance 50 ml 590 ml 120 ml Exam Neck: supple Respiratory: clear to auscultation Cardiovascular: regular rate and rhythm Gastrointestinal: soft Results Result Diagram: 07/16/16 0510 07/15/16 1050 Results 24 hrs Laboratory Tests Test 07/15/16 21:51 07/16/16 05:10 07/16/16 07:48 07/16/16 08:30 Bedside Glucose 105 62 L 125 Basophils # 0.1 Basophils % 1.0 Blood Morphology Comment Eosinophils # 0.5 Eosinophils % 7.3 H Hematocrit 24.0 L Hemoglobin 8.2 L Lymphocytes # 0.6 L Lymphocytes % 9.9 L Mean Corpuscular Hemoglobin 33.1 H Mean Corpuscular Hemoglobin Concent 34.2 Mean Corpuscular Volume 97.0 Mean Platelet Volume 7.7 Monocytes # 0.3 Monocytes % 4.2 Neutrophils # 4.9 Neutrophils % 77.6 H Nucleated Red Blood Cells # 0.0 Nucleated Red Blood Cells % 0.0 Platelet Count 63 L Red Blood Count 2.48 L Red Cell Distribution Width 17.4 H White Blood Count 6.3 Test 07/16/16 09:51 07/16/16 11:45 07/16/16 17:04 Bedside Glucose 80 80 70 Medications Medications Current Medications Collagenase (Santyl) 1 applic DAILY TOP Last administered on 07/16/16 11:47; Admin Dose 1 APPLIC; Start 07/08/16 at 09:00 Amiodarone HCl (Cordarone) 200 mg DAILY PO Last administered on 07/15/16 09:29 ; Admin Dose 200 MG; Start 07/08/16 at 09:00 Calcitriol (Rocaltrol) 0.25 mcg DAILY PO Last administered on 07/15/16 09:29; Admin Dose 0.25 MCG; Start 07/08/16 at 09:00 Ferrous Sulfate (Ferrous Sulfate (Ec)) 325 mg BID PO Last administered on 21:44; Admin Dose 325 MG; Start 07/07/16 at 21:00 Furosemide (Lasix) 40 mg BID PO Last administered on 07/15/16 21:45; Admin Dose 40 MG; Start 07/07/16 at 21:00 Insulin Glargine (Lantus) 20 unit QAM SC Last administered on 07/15/16 09:31; Admin Dose 20 UNIT; Start 07/08/16 at 09:00 Levothyroxine Sodium (Synthroid) 25 mcg DAILY PO Last administered on 07/15/16 09:29; Admin Dose 25 MCG; Start 07/08/16 at 09:00 Terazosin HCl (Hytrin) 5 mg HS PO Last administered on 07/15/16 23:01; Admin Dose 5 MG; Start 07/07/16 at 21:00 Atorvastatin Calcium (Lipitor) 10 mg DAILY@21 PO Last administered on 07/15/16 21:44; Admin Dose 10 MG; Start 07/07/16 at 21:00 Linagliptin (Tradjenta) 5 mg DAILY PO Last administered on 07/15/16 09:30; Admin Dose 5 MG; Start 07/07/16 at 19:30 Diagnostic Test (Pha) (Accucheck) 1 ea 02 XX Last administered on 07/09/16 02: 59; Admin Dose 1 EA; Start 07/08/16 at 02:00 Miscellaneous Information 1 ea NOTE XX ; Start 07/08/16 at 09:30 Glucose (Glutose) 15 gm Q15M PRN PO DECREASED GLUCOSE; Start 07/08/16 at 09:30 Glucose (Glutose) 22.5 gm Q15M PRN PO DECREASED GLUCOSE; Start 07/08/16 at 09: 30 Dextrose (D50w Syringe) 25 ml Q15M PRN IV DECREASED GLUCOSE Last administered on 07/16/16 07:56; Admin Dose 25 ML; Start 07/08/16 at 09:30 Dextrose (D50w Syringe) 50 ml Q15M PRN IV DECREASED GLUCOSE; Start 07/08/16 at 09:30 Glucagon (Glucagen) 1 mg Q15M PRN IM DECREASED GLUCOSE; Start 07/08/16 at 09:30 Glucose 15 gm 15 gm Q15M PRN BUCCAL DECREASED GLUCOSE; Start 07/08/16 at 09:30 Piperacillin Sod/ Tazobactam Sod (Zosyn 2.25gm/ 50ml (Pmx)) 50 ml @ 100 mls/hr Q8 IVPB Last administered on 07/16/16 14:44; Admin Dose 100 MLS/HR; Start 07/08 at 14:00 Apixaban (Eliquis) 2.5 mg BID PO Last administered on 07/15/16 21:45; Admin Dose 2.5 MG; Start 07/13/16 at 21:00 Polyethylene Glycol (Miralax) 17 gm DAILY PRN PO CONSTIPATION; Start 07/13/16 at 13:00 Zolpidem Tartrate 5 mg 5 mg HS PRN PO INSOMNIA Last administered on 07/16/16 03 :01; Admin Dose 5 MG; Start 07/16/16 at 03:00 Dextrose/Sodium Chloride (D5-1/2ns) 1,000 ml @ 50 mls/hr Q20H IV Last administered on 07/16/16 08:21; Admin Dose 50 MLS/HR; Start 07/16/16 at 08:00 Epoetin Mt (Epogen (Esrd)) 10,000 units MoWeFr@17 SC ; Start 07/16/16 at 17:00 DARA CAVANAUGH MD Jul 16, 2016 17:26
[2016-07-16] MEDS: EPOETIN 10000 UNITS/1 ML INJ (ESRD) SC SCH (18:28)
--- NOTE | 2016-07-16 19:22 | PN ---
Date/Time of Note Date/Time of Note DATE: 07/16/16 TIME: 19:21 Assessment/Plan Lines/Catheters IV Catheter Type (from Nrsg): Saline Lock López in Place (from Nrsg): No Assessment/Plan Chief Complaint/Hosp Course CKD OR time not available today Plan for AVF on Tuesday Problems: Subjective 24 Hr Interval Summary Constitutional: improved Pain Control: mild Exam/Review of Systems Vital Signs Vitals Vital Signs Date Time Temp Pulse Resp B/P Pulse Ox O2 Delivery O2 Flow Rate FiO2 07/16/16 08:05 97.5 64 16 106/55 97 07/13/16 15:45 Nasal Cannula 3 Intake and Output 07/15/16 07/15/16 07/16/16 15:00 23:00 07:00 Intake Total 50 ml 1490 ml 1120 ml Output Total 900 ml 1000 ml Balance 50 ml 590 ml 120 ml Exam ENMT: mucosa pink and moist, nl external ears & nose, nl lips & teeth, nl nasal mucosa & septum Neck: non-tender, supple Respiratory: clear to auscultation, normal air movement Cardiovascular: nl pulses, regular rate and rhythm Gastrointestinal: nl liver, spleen, non-tender, soft Results Result Diagram: 07/16/16 0510 07/15/16 1050 MALEBELEM MACARIO MD Jul 16, 2016 19:22
[2016-07-16 21:08] VITALS: BP 122/62; RESP 18
[2016-07-16] MEDS: ATORVASTATIN 10 MG TAB PO SCH (22:14)
[2016-07-16] MEDS: TERAZOSIN 5 MG CAP PO SCH (22:15)
--- NOTE | 2016-07-16 23:28 | PN ---
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 Will follow patient in house. Subjective 24 Hr Interval Summary Patient was seen and examined at bedside. Denies fever and chills. Reports no pain in his right foot today. Reports changing bandages as directed. Constitutional: no complaints Pain Control: well controlled Exam/Review of Systems Vital Signs Vitals Vital Signs Date Time Temp Pulse Resp B/P Pulse Ox O2 Delivery O2 Flow Rate FiO2 07/19/16 19:30 98.2 66 18 122/68 98 Room Air Exam Free Text/Dictation Patient is in no acute distress. Open wound of right second toe and third toe noted with edema. There is no pus and active bleeding. The wound probes to the distal phalanx. Labs reviewed. Decreased sensation to sharp, dull, temp stimuli. No other changes noted on exam. Results Result Diagram: 07/19/16 0547 07/19/16 0547 SHONDA TOLEDO DPM Jul 16, 2016 23:28
[2016-07-17] VITALS (14 sets, daily range): BP systolic 102–122; BP diastolic 52–66; PULSE 62–65; RESP 14–21
[2016-07-17] MEDS: ACCUCHECK XX SCH (01:48)
[2016-07-17] MEDS: DEXTROSE 5%-0.45% NACL 1,000 ML IV SCH ×2 (04:00→08:46)
[2016-07-17] MEDS: PIPER-TAZO 2.25 GM (PMX) 50 ML IVPB SCH ×3 (04:25→21:06)
[2016-07-17] MEDS ORDERED: CEFAZOLIN 1 GM INJ ONE (07:00)
[2016-07-17] MEDS: INSULIN ASPART [NOVOLOG] 3 ML PEN SC SCH ×4 (08:00→21:00)
[2016-07-17] MEDS: FUROSEMIDE 40 MG TAB PO SCH ×2 (09:00→21:06)
[2016-07-17] MEDS: LEVOTHYROXINE 25 MCG TAB PO SCH (09:00)
[2016-07-17] MEDS: CALCITRIOL 0.25 MCG CAP PO SCH (09:00)
[2016-07-17] MEDS: FERROUS SULFATE (EC) 325 MG TAB PO SCH ×2 (09:00→21:06)
[2016-07-17] MEDS: INSULIN GLARGINE [LANtus] 3 ML PEN SC SCH (09:00)
[2016-07-17] MEDS: LINAGLIPTIN 5 MG TABLET PO SCH (09:00)
[2016-07-17] MEDS: AMIODARONE 200 MG TAB PO SCH (09:00)
[2016-07-17] MEDS: APIXABAN 5 MG TABLET PO SCH ×2 (10:00→21:07)
[2016-07-17] MEDS ORDERED: LIDOCAINE 1% (MPF) 30 ML INJ ONE (11:12)
[2016-07-17] MEDS ORDERED: GELATIN SIZE 100 SPONGE ONE (11:12)
[2016-07-17] MEDS ORDERED: HEPARIN 1000 UNITS/ML 10 ML INJ ONE (11:12)
[2016-07-17] MEDS ORDERED: BUPIVACAINE 0.5% (SDV) 30 ML INJ ONE (11:12)
[2016-07-17] MEDS ORDERED: THROMBIN 5000 UNIT VIAL ONE (11:12)
[2016-07-17] MEDS ORDERED: FENTAnyl 50 MCG/ML VIAL ONE (11:32)
[2016-07-17] MEDS ORDERED: MIDAZOLAM 1 MG/ML 2 ML INJ ONE (11:32)
--- NOTE | 2016-07-17 11:57 | PN ---
Date/Time of Note Date/Time of Note DATE: 07/17/16 TIME: 11:56 Assessment/Plan VTE Prophylaxis VTE Prophylaxis Intervention: other Lines/Catheters IV Catheter Type (from [facility]): Saline Lock Urinary Cath still in place: No Assessment/Plan Chief Complaint/Hosp Course IMPRESSION: 1. Left leg wound. 2. Hypertension. 3. Diabetes mellitus. 4. Chronic kidney disease.4 5. Coronary artery disease. 6. Atherosclerotic heart disease. 7. Dyslipidemia. 8. Obesity. 9. Peripheral vascular disease. 10. Noncompliance. 11 anemia [address] xie antibiotic AVF ck labs prbc CK BIOPSY prbc av fistula SOON Problems: Subjective 24 Hr Interval Summary Respiratory: no complaints Cardiovascular: no complaints Exam/Review of Systems Vital Signs Vitals Vital Signs Date Time Temp Pulse Resp B/P Pulse Ox O2 Delivery O2 Flow Rate FiO2 07/17/16 07:28 97.3 65 18 109/61 97 07/13/16 15:45 Nasal Cannula 3 Intake and Output 07/16/16 07/16/16 07/17/16 14:59 22:59 06:59 Intake Total 850 ml 1050 ml Output Total 850 ml 1000 ml Balance 0 ml 50 ml Exam Respiratory: clear to auscultation Cardiovascular: regular rate and rhythm Gastrointestinal: soft Musculoskeletal: nl extremities to inspection Extremities: normal pulses Results Result Diagram: 07/16/16 0510 07/15/16 1050 Results 24 hrs Laboratory Tests Test 07/16/16 17:04 07/16/16 18:44 07/16/16 20:56 07/17/16 07:39 Bedside Glucose 70 106 133 95 Medications Medications Current Medications Collagenase (Santyl) 1 applic DAILY TOP Last administered on 07/16/16 11:47; Admin Dose 1 APPLIC; Start 07/08/16 at 09:00 Amiodarone HCl (Cordarone) 200 mg DAILY PO Last administered on 07/15/16 09:29 ; Admin Dose 200 MG; Start 07/08/16 at 09:00 Calcitriol (Rocaltrol) 0.25 mcg DAILY PO Last administered on 07/15/16 09:29; Admin Dose 0.25 MCG; Start 07/08/16 at 09:00 Ferrous Sulfate (Ferrous Sulfate (Ec)) 325 mg BID PO Last administered on 21:00; Admin Dose 325 MG; Start 07/07/16 at 21:00 Furosemide (Lasix) 40 mg BID PO Last administered on 07/16/16 22:15; Admin Dose 40 MG; Start 07/07/16 at 21:00 Insulin Glargine (Lantus) 20 unit QAM SC Last administered on 07/15/16 09:31; Admin Dose 20 UNIT; Start 07/08/16 at 09:00 Levothyroxine Sodium (Synthroid) 25 mcg DAILY PO Last administered on 07/15/16 09:29; Admin Dose 25 MCG; Start 07/08/16 at 09:00 Terazosin HCl (Hytrin) 5 mg HS PO Last administered on 07/16/16 22:15; Admin Dose 5 MG; Start 07/07/16 at 21:00 Atorvastatin Calcium (Lipitor) 10 mg DAILY@21 PO Last administered on 07/16/16 22:14; Admin Dose 10 MG; Start 07/07/16 at 21:00 Linagliptin (Tradjenta) 5 mg DAILY PO Last administered on 07/15/16 09:30; Admin Dose 5 MG; Start 07/07/16 at 19:30 Diagnostic Test (Pha) (Accucheck) 1 ea 02 XX Last administered on 07/09/16 02: 59; Admin Dose 1 EA; Start 07/08/16 at 02:00 Miscellaneous Information 1 ea NOTE XX ; Start 07/08/16 at 09:30 Glucose (Glutose) 15 gm Q15M PRN PO DECREASED GLUCOSE; Start 07/08/16 at 09:30 Glucose (Glutose) 22.5 gm Q15M PRN PO DECREASED GLUCOSE; Start 07/08/16 at 09: 30 Dextrose (D50w Syringe) 25 ml Q15M PRN IV DECREASED GLUCOSE Last administered on 07/16/16 07:56; Admin Dose 25 ML; Start 07/08/16 at 09:30 Dextrose (D50w Syringe) 50 ml Q15M PRN IV DECREASED GLUCOSE; Start 07/08/16 at 09:30 Glucagon (Glucagen) 1 mg Q15M PRN IM DECREASED GLUCOSE; Start 07/08/16 at 09:30 Glucose 15 gm 15 gm Q15M PRN BUCCAL DECREASED GLUCOSE; Start 07/08/16 at 09:30 Piperacillin Sod/ Tazobactam Sod (Zosyn 2.25gm/ 50ml (Pmx)) 50 ml @ 100 mls/hr Q8 IVPB Last administered on 07/17/16 04:25; Admin Dose 100 MLS/HR; Start 07/08 at 14:00 Apixaban (Eliquis) 2.5 mg BID PO Last administered on 07/16/16 22:14; Admin Dose 2.5 MG; Start 07/13/16 at 21:00 Polyethylene Glycol (Miralax) 17 gm DAILY PRN PO CONSTIPATION; Start 07/13/16 at 13:00 Zolpidem Tartrate 5 mg 5 mg HS PRN PO INSOMNIA Last administered on 07/16/16 03 :01; Admin Dose 5 MG; Start 07/16/16 at 03:00 Dextrose/Sodium Chloride (D5-1/2ns) 1,000 ml @ 50 mls/hr Q20H IV Last administered on 07/17/16 08:46; Admin Dose 50 MLS/HR; Start 07/16/16 at 08:00 Epoetin Mt (Epogen (Esrd)) 10,000 units MoWeFr@17 SC Last administered on 07/16 18:28; Admin Dose 10,000 UNITS; Start 07/16/16 at 17:00 DARA CAVANAUGH MD Jul 17, 2016 11:57
[2016-07-17] MEDS ORDERED: PROCHLORPERAZINE 10 MG INJ IV PRN (12:30)
[2016-07-17] MEDS ORDERED: ONDANSETRON 4 MG INJ IV PRN (12:30)
[2016-07-17] MEDS ORDERED: FENTAnyl 50 MCG/ML VIAL IV PRN (12:30)
[2016-07-17] MEDS ORDERED: HYDROmorphONE (0.2 MG/ML) 10ML SYG IV PRN ×2 (12:30)
[2016-07-17] MEDS ORDERED: DEXTROSE 50% 50 ML SYRINGE IV ONE (13:00)
--- NOTE | 2016-07-17 13:10 | OPR ---
DATE OF OPERATION: 07/17/2016 PREOPERATIVE DIAGNOSIS: Renal failure. POSTOPERATIVE DIAGNOSIS: Renal failure. OPERATION PERFORMED: Left arm arteriovenous fistula placement. SURGEON: Belem Duncan MD ANESTHESIA: Local. CONSENT: Risks, benefits, complications, and alternative therapies explained to the patient and the family, consent obtained. OPERATIVE TECHNIQUE: The patient was placed in supine position, prepped and draped in usual sterile fashion, 1% lidocaine was used throughout the operation for local anesthesia. I made a 2 cm incisi on in the left wrist above the wrist in a longitudinal fashion. The radial artery was identified. It appeared to be highly calcified. Next, I made a 3 cm incision just distal to the antecubital fos sa in a horizontal fashion. Brachial artery and the antecubital vein was identified. Vesseloops we re passed around it. The patient was given 5000 units of IV heparin. The antecubital vein was anas tomosed to the brachial artery in an end-to-side fashion using 7-0 Prolene in continuous suture tech nique to a 6 mm longitudinal arteriotomy. The wound was then irrigated and closed in 2 layers 3-0 V icryl suture in running subcuticular skin closure. Both wounds were then irrigated and closed in 2 layers of 3-0 Vicryl suture for subcutaneous and subcuticular skin closure. The patient had a stron g thrill over the newly constructed graft and a palpable pulse in the brachial artery distal to the anastomosis. He tolerated the procedure well. Dictated By: BELEM QUEZADA/RAJ Conf#: [id number] DID#: [id number]
[2016-07-17 16:00] LABS: HEMATOCRIT 21.3 % (42.0-52.0); HEMOGLOBIN 7.2 g/dl (14.0-18.0); MEAN CORPUSCULAR HEMOGLOBIN 32.6 pg (29.0-33.0); MEAN CORPUSCULAR HGB CONC 33.8 g/dl (32.0-37.0); MEAN CORPUSCULAR VOLUME 96.5 fl (82.0-101.0); MEAN PLATELET VOLUME 7.3 fl (7.4-10.4); PLATELET COUNT 58 10^3/UL (140-440); RED BLOOD COUNT 2.21 10^6/ul (4.70-6.10); RED CELL DISTRIBUTION WIDTH 17.8 % (11.5-14.5); UNCORRECTED WBC 4.6 10^3/ul (4.8-10.8); WHITE BLOOD COUNT 4.6 10^3/ul (4.8-10.8)
[2016-07-17] MEDS: COLLAGENASE 30 GM TUBE TOP SCH (16:00)
[2016-07-17 16:09] LABS: INR 2.59; PROTIME 28.1 Sec (12.2-14.2); PT RATIO 2.2
[2016-07-17 16:18] LABS: CONDITION 1; CREATININE 3.61 mg/dl (0.61-1.24); LH ANALYZER COMMENTS 1
[2016-07-17 16:19] LABS: CALCIUM 7.4 mg/dl (8.4-10.2)
[2016-07-17 16:26] LABS: PARTIAL THROMBOPLASTIN TIME 114.5 Sec (25.0-35.0)
[2016-07-17 18:52] LABS: EOSINOPHILS # 0.4 10^3/ul (0.0-0.5); LYMPHOCYTES # 0.6 10^3/ul (0.8-2.9); MONOCYTE # 0.1 10^3/ul (0.3-0.9); NEUTROPHIL # 3.4 10^3/ul (1.6-7.5)
[2016-07-17 18:53] LABS: PLATELET ESTIMATE PLT APPEAR DECREASED
--- NOTE | 2016-07-17 20:33 | PN ---
Date/Time of Note Date/Time of Note DATE: 07/17/16 TIME: 20:33 Assessment/Plan Lines/Catheters IV Catheter Type (from Nrsg): Peripheral IV López in Place (from Nrsg): No Assessment/Plan Problems: (1) Acute renal failure Status: Acute (2) Acute weakness Status: Acute (3) Anemia, macrocytic (4) Thrombocytopenia (5) Cellulitis of left lower extremity (6) Non-pressure ulcer of left lower extremity with necrosis of muscle Assessment/Plan Continue current management. Continue IVAbx. Advanced wound care. Follow up in [facility] upon discharge. Subjective 24 Hr Interval Summary Patient was seen and examined at bedside. Denies major changes. Denies overnight adverse events. Constitutional: no complaints Pain Control: well controlled Exam/Review of Systems Vital Signs Vitals Vital Signs Date Time Temp Pulse Resp B/P Pulse Ox O2 Delivery O2 Flow Rate FiO2 07/19/16 19:30 98.2 66 18 122/68 98 Room Air Exam Free Text/Dictation Continues to have edema of the left lower leg. Continues to have open wounds of the right foot. There is improvement of the wounds and edema, however, Labs reviewed. No other changes noted on exam. Results Result Diagram: 07/19/16 0547 07/19/16 0547 SHONDA TOLEDO DPM Jul 17, 2016 20:33
[2016-07-17] MEDS: TERAZOSIN 5 MG CAP PO SCH (21:06)
[2016-07-17] MEDS: ATORVASTATIN 10 MG TAB PO SCH (21:07)
[2016-07-18] MEDS: ACCUCHECK XX SCH (02:00)
[2016-07-18] MEDS ORDERED: ACETAMINOPHEN 500 MG TAB PO STA (02:45)
[2016-07-18] MEDS: INSULIN ASPART [NOVOLOG] 3 ML PEN SC SCH ×4 (08:00→21:00)
[2016-07-18] MEDS: PIPER-TAZO 2.25 GM (PMX) 50 ML IVPB SCH ×3 (08:32→21:24)
[2016-07-18] MEDS: CALCITRIOL 0.25 MCG CAP PO SCH (08:34)
[2016-07-18] MEDS: APIXABAN 5 MG TABLET PO SCH ×2 (08:34→21:23)
[2016-07-18] MEDS: LINAGLIPTIN 5 MG TABLET PO SCH (08:34)
[2016-07-18] MEDS: AMIODARONE 200 MG TAB PO SCH (08:34)
[2016-07-18] MEDS: LEVOTHYROXINE 25 MCG TAB PO SCH (08:34)
[2016-07-18] MEDS: FUROSEMIDE 40 MG TAB PO SCH ×2 (08:34→21:24)
[2016-07-18] MEDS: FERROUS SULFATE (EC) 325 MG TAB PO SCH ×2 (08:37→21:23)
[2016-07-18] MEDS: INSULIN GLARGINE [LANtus] 3 ML PEN SC SCH (09:00)
[2016-07-18] MEDS: COLLAGENASE 30 GM TUBE TOP SCH (13:40)
[2016-07-18] MEDS: DEXTROSE 5%-0.45% NACL 1,000 ML IV SCH (17:08)
--- NOTE | 2016-07-18 19:43 | PN ---
DATE: 07/18/2016 SUBJECTIVE: Mr. Orr is a 76-year-old Macedonian-speaking gentleman who was admitted after he fell a nd had a hematoma of the left leg and also possibly cellulitis of the left leg. He is being treated for that. He was found to have severe anemia with a hemoglobin down to about 5 grams with macrocyt osis and thrombocytopenia. The patient had a bone marrow and the results are pending. His hemoglob in yesterday was 7.2 and I ordered 2 units of packed cells, which he got yesterday. PHYSICAL EXAMINATION: GENERAL: Shows moderately built male in no distress. He is alert, oriented, and is afebrile. EARS, NOSE, THROAT, HEART, AND LUNGS: Unremarkable. ABDOMEN: Soft. No masses. EXTREMITIES: Showed mild stasis changes in the right leg. On the left leg, he has a surgical dress ing in the left upper leg. His left lower leg shows severe stasis changes and possible cellulitis. LYMPH NODES: No peripheral lymphadenopathy. LABORATORY DATA: The patient had no labs done today, even though he had transfusion yesterday. IMPRESSION: 1. Severe anemia, macrocytic with severe thrombocytopenia. Rule out multifactorial anemia or myelo dysplastic syndrome. Unlikely secondary to medications. 2. Hematoma and cellulitis, left leg. 3. Chronic renal failure, status post placement of AV fistula with hematoma surrounding it in the l eft arm yesterday. PLAN AND DISCUSSION: This patient had 2 units of packed cells yesterday. Since his hemoglobin was down to 7.2 yesterday, no labs were done today, I will order labs. We need to monitor the AV fistul a, left arm, and he appears to have had some bleeding around it. Will check the bone marrow results . Dictated By: KATHARINE YCR MD PC/NTS Conf#: [id number] DID#: [id number]
[2016-07-18 19:57] VITALS: BP 113/53; RESP 18
[2016-07-18] MEDS: TERAZOSIN 5 MG CAP PO SCH (21:24)
[2016-07-18] MEDS: ATORVASTATIN 10 MG TAB PO SCH (21:24)
[2016-07-18 21:25] VITALS: BP 107/55; PULSE 65
--- NOTE | 2016-07-18 22:37 | PN ---
Date/Time of Note Date/Time of Note DATE: 07/18/16 TIME: 22:36 Assessment/Plan VTE Prophylaxis VTE Prophylaxis Intervention: other Lines/Catheters [facility] Peripheral IV Urinary Cath still in place: No Assessment/Plan Chief Complaint/Hosp Course IMPRESSION: 1. Left leg wound. better 2. Hypertension. 3. Diabetes mellitus. 4. Chronic kidney disease.4 5. Coronary artery disease. 6. Atherosclerotic heart disease. 7. Dyslipidemia. 8. Obesity. 9. Peripheral vascular disease. 10. Noncompliance. 11 anemia 12 POSS MDS [address] xie antibiotic AVF ck labs prbc CK BIOPSY Problems: Subjective 24 Hr Interval Summary Respiratory: no complaints Cardiovascular: no complaints Musculoskeletal: bone/joint pain (+) Neurologic: no complaints Exam/Review of Systems Vital Signs Vitals Vital Signs Date Time Temp Pulse Resp B/P Pulse Ox O2 Delivery O2 Flow Rate FiO2 07/18/16 21:25 65 107/55 07/18/16 19:57 97.9 18 99 07/17/16 13:32 Room Air 07/17/16 13:17 3.0 Intake and Output 07/17/16 07/17/16 07/18/16 15:00 23:00 07:00 Intake Total 400 ml 1190 ml 1210 ml Output Total 5 ml 700 ml 375 ml Balance 395 ml 490 ml 835 ml Exam Respiratory: clear to auscultation Cardiovascular: regular rate and rhythm Gastrointestinal: soft Musculoskeletal: nl extremities to inspection, other (avf left arm) Results Result Diagram: 07/17/16 1525 07/17/16 1525 Results 24 hrs Laboratory Tests Test 07/18/16 08:02 07/18/16 11:28 07/18/16 16:38 07/18/16 21:17 Bedside Glucose 113 122 154 129 Medications Medications Current Medications Collagenase (Santyl) 1 applic DAILY TOP Last administered on 07/18/16 13:40; Admin Dose 1 APPLIC; Start 07/08/16 at 09:00 Amiodarone HCl (Cordarone) 200 mg DAILY PO Last administered on 07/18/16 08:34 ; Admin Dose 200 MG; Start 07/08/16 at 09:00 Calcitriol (Rocaltrol) 0.25 mcg DAILY PO Last administered on 07/18/16 08:34; Admin Dose 0.25 MCG; Start 07/08/16 at 09:00 Ferrous Sulfate (Ferrous Sulfate (Ec)) 325 mg BID PO Last administered on 21:23; Admin Dose 325 MG; Start 07/07/16 at 21:00 Furosemide (Lasix) 40 mg BID PO Last administered on 07/18/16 21:24; Admin Dose 40 MG; Start 07/07/16 at 21:00 Insulin Glargine (Lantus) 20 unit QAM SC Last administered on 07/15/16 09:31; Admin Dose 20 UNIT; Start 07/08/16 at 09:00 Levothyroxine Sodium (Synthroid) 25 mcg DAILY PO Last administered on 07/18/16 08:34; Admin Dose 25 MCG; Start 07/08/16 at 09:00 Terazosin HCl (Hytrin) 5 mg HS PO Last administered on 07/18/16 21:24; Admin Dose 5 MG; Start 07/07/16 at 21:00 Atorvastatin Calcium (Lipitor) 10 mg DAILY@21 PO Last administered on 07/18/16 21:24; Admin Dose 10 MG; Start 07/07/16 at 21:00 Linagliptin (Tradjenta) 5 mg DAILY PO Last administered on 07/18/16 08:34; Admin Dose 5 MG; Start 07/07/16 at 19:30 Diagnostic Test (Pha) (Accucheck) 1 ea 02 XX Last administered on 07/09/16 02: 59; Admin Dose 1 EA; Start 07/08/16 at 02:00 Miscellaneous Information 1 ea NOTE XX ; Start 07/08/16 at 09:30 Glucose (Glutose) 15 gm Q15M PRN PO DECREASED GLUCOSE; Start 07/08/16 at 09:30 Glucose (Glutose) 22.5 gm Q15M PRN PO DECREASED GLUCOSE; Start 07/08/16 at 09: 30 Dextrose (D50w Syringe) 25 ml Q15M PRN IV DECREASED GLUCOSE Last administered on 07/16/16 07:56; Admin Dose 25 ML; Start 07/08/16 at 09:30 Dextrose (D50w Syringe) 50 ml Q15M PRN IV DECREASED GLUCOSE; Start 07/08/16 at 09:30 Glucagon (Glucagen) 1 mg Q15M PRN IM DECREASED GLUCOSE; Start 07/08/16 at 09:30 Glucose 15 gm 15 gm Q15M PRN BUCCAL DECREASED GLUCOSE; Start 07/08/16 at 09:30 Piperacillin Sod/ Tazobactam Sod (Zosyn 2.25gm/ 50ml (Pmx)) 50 ml @ 100 mls/hr Q8 IVPB Last administered on 07/18/16 21:24; Admin Dose 100 MLS/HR; Start 07/08 at 14:00 Apixaban (Eliquis) 2.5 mg BID PO Last administered on 07/18/16 21:23; Admin Dose 2.5 MG; Start 07/13/16 at 21:00 Polyethylene Glycol (Miralax) 17 gm DAILY PRN PO CONSTIPATION; Start 07/13/16 at 13:00 Zolpidem Tartrate 5 mg 5 mg HS PRN PO INSOMNIA Last administered on 07/16/16 03 :01; Admin Dose 5 MG; Start 07/16/16 at 03:00 Dextrose/Sodium Chloride (D5-1/2ns) 1,000 ml @ 50 mls/hr Q20H IV Last administered on 07/18/16 17:08; Admin Dose 50 MLS/HR; Start 07/16/16 at 08:00 Epoetin Mt (Epogen (Esrd)) 10,000 units MoWeFr@17 SC Last administered on 07/16 18:28; Admin Dose 10,000 UNITS; Start 07/16/16 at 17:00 DARA CAVANAUGH MD Jul 18, 2016 22:37
[2016-07-19] MEDS: ACCUCHECK XX SCH (02:00)
[2016-07-19] MEDS: PIPER-TAZO 2.25 GM (PMX) 50 ML IVPB SCH ×2 (06:03→14:01)
[2016-07-19 06:41] LABS: BASOPHIL # 0.1 10^3/ul (0.0-0.1); BASOPHILS % 0.9 % (0.0-2.0); EOSINOPHILS # 0.4 10^3/ul (0.0-0.5); EOSINOPHILS % 7.2 % (0.0-7.0); HEMATOCRIT 29.1 % (42.0-52.0); LYMPHOCYTES # 0.7 10^3/ul (0.8-2.9); LYMPHOCYTES % 12.2 % (15.0-51.0); MEAN CORPUSCULAR HEMOGLOBIN 32.7 pg (29.0-33.0); MEAN CORPUSCULAR HGB CONC 34.2 g/dl (32.0-37.0); MEAN CORPUSCULAR VOLUME 95.7 fl (82.0-101.0); MEAN PLATELET VOLUME 8.2 fl (7.4-10.4); MONOCYTE # 0.3 10^3/ul (0.3-0.9); MONOCYTES % 5.3 % (0.0-11.0); NEUTROPHIL # 4.3 10^3/ul (1.6-7.5); NEUTROPHILS % 74.4 % (39.0-77.0); PLATELET COUNT 69 10^3/UL (140-440); RED BLOOD COUNT 3.05 10^6/ul (4.70-6.10); UNCORRECTED WBC 5.7 10^3/ul (4.8-10.8); WHITE BLOOD COUNT 5.7 10^3/ul (4.8-10.8)
[2016-07-19 06:47] LABS: CONDITION 1; LH ANALYZER COMMENTS 1
[2016-07-19 06:51] LABS: ALBUMIN 3.2 g/dl (3.3-4.9)
[2016-07-19 06:52] LABS: POTASSIUM 3.5 mmol/L (3.5-5.1)
[2016-07-19 06:54] LABS: ALBUMIN/GLOBULIN RATIO 0.91; BILIRUBIN,DIRECT 0.2 mg/dl (0.00-0.20); BILIRUBIN,INDIRECT 0.9 mg/dl (0-1.1); BILIRUBIN,TOTAL 1.1 mg/dl (0.2-1.3); TOTAL PROTEIN 6.7 g/dl (6.1-8.1)
[2016-07-19] MEDS: INSULIN ASPART [NOVOLOG] 3 ML PEN SC SCH ×3 (08:00→17:40)
[2016-07-19 08:24] VITALS: BP 125/66; RESP 18
[2016-07-19] MEDS: INSULIN GLARGINE [LANtus] 3 ML PEN SC SCH (08:33)
[2016-07-19] MEDS: FERROUS SULFATE (EC) 325 MG TAB PO SCH (08:34)
[2016-07-19] MEDS: LEVOTHYROXINE 25 MCG TAB PO SCH (08:34)
[2016-07-19] MEDS: CALCITRIOL 0.25 MCG CAP PO SCH (08:34)
[2016-07-19] MEDS: AMIODARONE 200 MG TAB PO SCH (08:35)
[2016-07-19] MEDS: LINAGLIPTIN 5 MG TABLET PO SCH (08:35)
[2016-07-19] MEDS: APIXABAN 5 MG TABLET PO SCH (08:35)
[2016-07-19] MEDS: FUROSEMIDE 40 MG TAB PO SCH (08:35)
[2016-07-19] MEDS: DEXTROSE 5%-0.45% NACL 1,000 ML IV SCH ×2 (08:41→16:00)
[2016-07-19] MEDS: COLLAGENASE 30 GM TUBE TOP SCH ×2 (08:44→16:09)
--- NOTE | 2016-07-19 14:40 | CONS ---
Date/Time of Note Date/Time of Note DATE: 07/19/16 TIME: 14:36 Assessment/Plan Assessment/Plan Chief Complaint/Hosp Course Patient 76 y/o with multiple medical problems with no recent hx of etoh, has been followed for rt toe osteomyelitis, now admitted for fall with left calf hematoma and cellulitis was found to have hgb 5-6 on admission and macrocytosis with thrombocytopenia which is chronic on review of labs from the hospital records with low normal wbc. Anemia workup reveals high likelihood of MDS. Pt has since undergone a bone marrow bx (1) Anemia, macrocytic Comment: Normal anemia panel but given chronicity and macrocytosis will need to evaluate for BM pathology like MDS as well. Could be chronic disease picture and ultimately will benefit from growth factors as well. -SPEP does not show evidence of underlying monoclonal gammopathy -will check epo level as patient's CKD is a likely contributing factor. f/u epo level. will start epogen 10,000units three x week with hemodialysis -Bone marrow Bx done. will follow up results given concern for MDS. even if patient has MDS epogen would be indicated -Hg now greater than 8. no need for transfusion (2) Thrombocytopenia -no evidence of DIC nor TTP -this is likely secondary to the underlying bone marrow problem -no need for transfusion at this time -will f/u bone marrow bx result as stated above (3) Acute renal failure -appreciate nephrology recs -will start procrit as stated above incase of CKD contributing to anemia Approximately 40 min were spent at patient's bedside and in coordination of his care Problems: Additional Assessment/Plan Patient 76 y/o with multiple medical problems with no recent hx of etoh, has been followed for rt toe osteomyelitis, now admitted for fall with left calf hematoma and cellulitis was found to have hgb 5-6 on admission and macrocytosis with thrombocytopenia which is chronic on review of labs from the hospital records with low normal wbc. Anemia workup reveals high likelihood of MDS. Pt has since undergone a bone marrow bx (1) Anemia, macrocytic Comment: Normal anemia panel but given chronicity and macrocytosis will need to evaluate for BM pathology like MDS as well. Could be chronic disease picture and ultimately will benefit from growth factors as well. -SPEP does not show evidence of underlying monoclonal gammopathy -will check epo level as patient's CKD is a likely contributing factor. f/u epo level. continue epogen 10,000units three x week with hemodialysis -Bone marrow Bx done. will follow up results given concern for MDS. even if patient has MDS epogen would be indicated -Hg now greater than 8. no need for transfusion (2) Thrombocytopenia -no evidence of DIC nor TTP -this is likely secondary to the underlying bone marrow problem -no need for transfusion at this time -will f/u bone marrow bx result as stated above (3) Acute renal failure -appreciate nephrology recs -will start procrit as stated above incase of CKD contributing to anemia Approximately 40 min were spent at patient's bedside and in coordination of his care Consultation Date/Type/Reason Admit Date/Time Jul 07, 2016 at 16:07 Initial Consult Date 07/10/16 Type of Consultation: Hematology Referring Provider: DARA CAVANAUGH MD Exam/Review of Systems Vital Signs Vitals Vital Signs Date Time Temp Pulse Resp B/P Pulse Ox O2 Delivery O2 Flow Rate FiO2 07/19/16 08:24 97.6 64 18 125/66 95 07/17/16 13:32 Room Air 07/17/16 13:17 3.0 Intake and Output 07/18/16 07/18/16 07/19/16 14:59 22:59 06:59 Intake Total 100 ml 1850 ml 840 ml Output Total 1500 ml 250 ml Balance 100 ml 350 ml 590 ml Results Result Diagram: 07/19/16 0547 07/19/16 0547 Results 24 hrs Laboratory Tests Test 07/18/16 16:38 07/18/16 21:17 07/19/16 05:47 07/19/16 07:38 Bedside Glucose 154 129 100 Alanine Aminotransferase (ALT/SGPT) 18 Albumin 3.2 L Albumin/Globulin Ratio 0.91 Alkaline Phosphatase 110 Anion Gap 21 H Aspartate Amino Transf (AST/SGOT) 17 Basophils # 0.1 Basophils % 0.9 Blood Morphology Comment Blood Urea Nitrogen 55 H Calcium Level 8.0 L Carbon Dioxide Level 21 Chloride Level 101 Creatinine 4.00 H Direct Bilirubin 0.20 Eosinophils # 0.4 Eosinophils % 7.2 H Globulin 3.50 H Glucose Level 90 # Hematocrit 29.1 #L Hemoglobin 10.0 #L Indirect Bilirubin 0.9 Lymphocytes # 0.7 L Lymphocytes % 12.2 L Mean Corpuscular Hemoglobin 32.7 Mean Corpuscular Hemoglobin Concent 34.2 Mean Corpuscular Volume 95.7 Mean Platelet Volume 8.2 Monocytes # 0.3 Monocytes % 5.3 Neutrophils # 4.3 Neutrophils % 74.4 Nucleated Red Blood Cells # 0.0 Nucleated Red Blood Cells % 0.0 Platelet Count 69 L Potassium Level 3.5 Red Blood Count 3.05 #L Red Cell Distribution Width 17.0 H Sodium Level 139 Total Bilirubin 1.1 Total Protein 6.7 White Blood Count 5.7 # Test 07/19/16 11:19 Bedside Glucose 130 Medications Medications Current Medications Collagenase (Santyl) 1 applic DAILY TOP Last administered on 07/18/16 13:40; Admin Dose 1 APPLIC; Start 07/08/16 at 09:00 Amiodarone HCl (Cordarone) 200 mg DAILY PO Last administered on 07/19/16 08:35 ; Admin Dose 200 MG; Start 07/08/16 at 09:00 Calcitriol (Rocaltrol) 0.25 mcg DAILY PO Last administered on 07/19/16 08:34; Admin Dose 0.25 MCG; Start 07/08/16 at 09:00 Ferrous Sulfate (Ferrous Sulfate (Ec)) 325 mg BID PO Last administered on 08:34; Admin Dose 325 MG; Start 07/07/16 at 21:00 Furosemide (Lasix) 40 mg BID PO Last administered on 07/19/16 08:35; Admin Dose 40 MG; Start 07/07/16 at 21:00 Insulin Glargine (Lantus) 20 unit QAM SC Last administered on 07/15/16 09:31; Admin Dose 20 UNIT; Start 07/08/16 at 09:00 Levothyroxine Sodium (Synthroid) 25 mcg DAILY PO Last administered on 07/19/16 08:34; Admin Dose 25 MCG; Start 07/08/16 at 09:00 Terazosin HCl (Hytrin) 5 mg HS PO Last administered on 07/18/16 21:24; Admin Dose 5 MG; Start 07/07/16 at 21:00 Atorvastatin Calcium (Lipitor) 10 mg DAILY@21 PO Last administered on 07/18/16 21:24; Admin Dose 10 MG; Start 07/07/16 at 21:00 Linagliptin (Tradjenta) 5 mg DAILY PO Last administered on 07/19/16 08:35; Admin Dose 5 MG; Start 07/07/16 at 19:30 Diagnostic Test (Pha) (Accucheck) 1 ea 02 XX Last administered on 07/09/16 02: 59; Admin Dose 1 EA; Start 07/08/16 at 02:00 Miscellaneous Information 1 ea NOTE XX ; Start 07/08/16 at 09:30 Glucose (Glutose) 15 gm Q15M PRN PO DECREASED GLUCOSE; Start 07/08/16 at 09:30 Glucose (Glutose) 22.5 gm Q15M PRN PO DECREASED GLUCOSE; Start 07/08/16 at 09: 30 Dextrose (D50w Syringe) 25 ml Q15M PRN IV DECREASED GLUCOSE Last administered on 07/16/16 07:56; Admin Dose 25 ML; Start 07/08/16 at 09:30 Dextrose (D50w Syringe) 50 ml Q15M PRN IV DECREASED GLUCOSE; Start 07/08/16 at 09:30 Glucagon (Glucagen) 1 mg Q15M PRN IM DECREASED GLUCOSE; Start 07/08/16 at 09:30 Glucose 15 gm 15 gm Q15M PRN BUCCAL DECREASED GLUCOSE; Start 07/08/16 at 09:30 Piperacillin Sod/ Tazobactam Sod (Zosyn 2.25gm/ 50ml (Pmx)) 50 ml @ 100 mls/hr Q8 IVPB Last administered on 07/19/16 14:01; Admin Dose 100 MLS/HR; Start 07/08 at 14:00 Apixaban (Eliquis) 2.5 mg BID PO Last administered on 07/19/16 08:35; Admin Dose 2.5 MG; Start 07/13/16 at 21:00 Polyethylene Glycol (Miralax) 17 gm DAILY PRN PO CONSTIPATION; Start 07/13/16 at 13:00 Zolpidem Tartrate 5 mg 5 mg HS PRN PO INSOMNIA Last administered on 07/16/16 03 :01; Admin Dose 5 MG; Start 07/16/16 at 03:00 Dextrose/Sodium Chloride (D5-1/2ns) 1,000 ml @ 50 mls/hr Q20H IV Last administered on 07/19/16 08:41; Admin Dose 50 MLS/HR; Start 07/16/16 at 08:00 Epoetin Mt (Epogen (Esrd)) 10,000 units MoWeFr@17 SC Last administered on 07/16t 18:28; Admin Dose 10,000 UNITS; Start 07/16/16 at 17:00 TATIANA OROSCO M.D. Jul 19, 2016 14:40
--- NOTE | 2016-07-19 17:19 | PDOCDIS ---
Discharge Instructions CONDITION Patient Condition: Stable HOME CARE INSTRUCTIONS: Special Diet: 1800 ADA ACTIVITY: Activity Restrictions: Slowly Increase Activity FOLLOW UP/APPOINTMENTS Appointments f/u dr salgado podiatry [address] cavanaugh [address] xie [address] perez 1 wk DARA CAVANAUGH MD Jul 19, 2016 17:19
[2016-07-19] MEDS ORDERED: EPO10ESRD SC (17:25)
[2016-07-19] MEDS ORDERED: SAN30GM TOP (17:25)
[2016-07-19] MEDS ORDERED: POLY17PO6 PO (17:25)
[2016-07-19] MEDS ORDERED: DOXY100T20 PO (17:26)
[2016-07-19] MEDS: EPOETIN 10000 UNITS/1 ML INJ (ESRD) SC SCH (18:50)
[2016-07-19 19:30] VITALS: BP 122/68; PULSE 66; RESP 18
--- NOTE | 2016-07-21 20:53 | QN ---
Documentation Comment [id number] DARA CAVANAUGH MD Jul 21, 2016 20:53
--- NOTE | 2016-07-21 22:46 | DS ---
DATE OF ADMISSION: 07/07/2016 DATE OF DISCHARGE: 07/19/2016 HISTORY OF PRESENT ILLNESS: The patient with history of CKD, hypertension, diabetes mellitus, CAD, AICD device placement, history of decreased ejection fraction in the past. The patient presented wi th left leg wound, hypertension, diabetes mellitus, CKD, CAD, atherosclerotic heart disease, dyslipi demia, obesity, also had CKD 5. Initially he was refusing dialysis, was seen by Dr. Elliott High in consultation, and his recommendations were followed. The patient was also seen by Dr. Yeyo rod and Dr. Lisa Moore in hematology consultation. Their impression: The patient has anemia, throm bocytopenia and also renal failure. The patient was seen by Dr. Howard in GI consultation for anemi a of chronic disease, left leg wound, hypertension, diabetes, CKD, CAD, obesity, dyslipidemia, PVD. This was his impression. The patient was also consulted by Dr. Duncan for AV fistula placement , underwent left upper extremity AV fistula placement. CT-guided bone marrow biopsy was done. The patient was cleared by Dr. Moore to be discharged home for further workup as an outpatient. DISCHARGE DIAGNOSES: Include 1. Left leg wound, improving. 2. Hypertension. 3. Diabetes mellitus. 4. Chronic kidney disease. 5. Coronary artery disease. 6. Atherosclerotic heart disease. 7. Obesity. 8. Peripheral vascular disease. 9. Noncompliance. 10. Anemia of possible myelodysplastic syndrome. 12. Arteriovenous fistula placed in the left upper extremity. DISCHARGE MEDICATIONS: The patient to continue: 1. Santyl. 2. Doxycycline. 3. Epogen. 4. MiraLax. 5. Amiodarone. 6. Apixaban. 7. Aspirin. 8. Calcitriol. 9. Iron sulfate. 10. Lasix. 11. Insulin. 12. Levothyroxine. 13. Pravachol. 14. Januvia. 15. Terazosin. DIET: Diabetic and renal diet. The patient to follow up as an outpatient. The patient is stable at the time of discharge. The pat ient to follow with Dr. Duncan, Dr. High, Dr. Moore, myself ____. Dictated By: DARA CAVANAUGH MD BS/NTS Conf#: [id number] [facility]#: [id number]
== END 2016-07-19 20:40 | disposition home health service (06) | DRG 982 ==
LOC: PP2 16:07
PROVIDERS: ADMIT Internal Medicine Nephrology; ATTEND Internal Medicine Nephrology
PROC: 30233N1 Transfusion of Nonautologous Red Blood Cells into Peripheral Vein, Percutaneous Approach (ICD-10-PCS; 2016-07-08)
PROC: 07DR3ZX Extraction of Iliac Bone Marrow, Percutaneous Approach, Diagnostic (ICD-10-PCS; 2016-07-13)
PROC: 30233K1 Transfusion of Nonautologous Frozen Plasma into Peripheral Vein, Percutaneous Approach (ICD-10-PCS; 2016-07-13)
PROC: 031809D Bypass Left Brachial Artery to Upper Arm Vein with Autologous Venous Tissue, Open Approach (ICD-10-PCS; principal; 2016-07-17 11:00)
DX: L03.116 Cellulitis of left lower limb (principal); N17.9 Acute kidney failure, unspecified; E11.622 Type 2 diabetes mellitus with other skin ulcer; D69.6 Thrombocytopenia, unspecified; I12.0 Hypertensive chronic kidney disease with stage 5 chronic kidney disease or end stage renal disease; N18.5 Chronic kidney disease, stage 5; L97.223 Non-pressure chronic ulcer of left calf with necrosis of muscle; D53.9 Nutritional anemia, unspecified; S81.802A Unspecified open wound, left lower leg, initial encounter; I25.10 Atherosclerotic heart disease of native coronary artery without angina pectoris; X58.XXXA Exposure to other specified factors, initial encounter; Z95.810 Presence of automatic (implantable) cardiac defibrillator; Z91.19 Patient's noncompliance with other medical treatment and regimen; S80.12XA Contusion of left lower leg, initial encounter; D63.1 Anemia in chronic kidney disease; D46.9 Myelodysplastic syndrome, unspecified
CPT/HCPCS: 36430; 73590; 77012; 80048; 80053; 81001; 81003; 82607; 82668; 82728; 82746; 82962; 83010; 83540; 83615; 84155; 84165; 84466; 85025; 85045; 85362; 85384; 85610; 85651; 85730; 86140; 86320; 86850; 86900; 86901; 86920; 88305; 88313; 93970; 97110; 97116; 97163; 97530; J0885; C1725; J0690; J0886; J1644; J1815; J2250; J2543; J3010; J7040; J7042; P9016; P9059

== ENCOUNTER 2016-07-26 16:54 | Emergency (ER) | payer MEDICARE, OTHER ==
[~2016-07-26] VITALS: Wt 91.0 kg
[~2016-07-26 16:54] MED LIST changes: +AMIO200T2 PO; +APIX2.5T PO; -BICS PO; +DOXY100T20 PO; +EPO10ESRD SC; +FURO40TA4 PO; +POLY17PO6 PO; +SAN30GM TOP
--- NOTE | 2016-07-26 21:27 | ERD ---
ER Documentation Chief Complaint Date/Time DATE: 07/26/16 TIME: 21:26 Chief Complaint LEFT FOOT WOUND AND LEFT FISTULA ARM SWELLING. NO FEVERS. HPI 76-year-old male with history of coronary artery disease, hypertension, diabetes , dyslipidemia, obesity, peripheral vascular disease and end-stage renal disease status post AV fistula placement of the right arm with lower extremity ulcers and wounds. He was seen by the gm Dr. High in the lower extremity issues were cared for but he was concerned about his left upper extremity AV fistula and referred him to the ED for evaluation. Patient has had ecchymosis and swelling of the left arm after AV shunt placement which seems to be decreasing. He denies any pain or swelling. No purulent discharge. No chest pain or palpitations. No shortness of breath or cough. Denies fevers or chills. ROS All systems reviewed and are negative except as per history of present illness. Medications Home Meds Active Scripts Doxycycline Hyclate* (Doxycycline Hyclate*) 100 Mg Tablet., 100 MG PO BID for 10 Days, TAB Prov:DARA CAVANAUGH MD 07/19/16 Polyethylene Glycol* (Miralax*) 17 Gm Powd.pack, 17 GM PO DAILY Y for CONSTIPATION for 28 Days Prov:DARA CAVANAUGH MD 07/19/16 Epoetin Mt (Epogen) 10,000 Units/Ml Soln, 67042 UNITS SC MoWeFr@17 for 30 Days Prov:DARA CAVANAUGH MD 07/19/16 Collagenase* (Santyl*) 30 Gm Oint..gm., 1 APPLIC TOP DAILY for 28 Days Prov:DARA CAVANAUGH MD 07/19/16 Reported Medications Apixaban* (Eliquis*) 2.5 Mg Tablet, 2.5 MG PO BID, TAB 07/07/16 Ferrous Sulfate* (Ferrous Sulfate*) 325 Mg Tabec, 325 MG PO BID, TAB 07/07/16 Amiodarone Hcl* (Amiodarone Hcl*) 200 Mg Tablet, 200 MG PO DAILY, #30 TAB 07/07/16 Furosemide* (Furosemide*) 40 Mg Tablet, 40 MG PO BID, TAB 07/07/16 Pravastatin Sodium* (Pravastatin Sodium*) 10 Mg Tablet, 10 MG PO HS, TAB 01/27/15 Aspirin* (Aspirin* EC) 81 Mg Tablet., 81 MG PO DAILY, TAB 12/16/14 Terazosin Hcl* (Terazosin Hcl*) 5 Mg Capsule, 5 MG PO HS, CAP 12/16/14 Insulin Glargine* (Lantus*) 100 Unit/Ml Soln, 20 UNIT SC QAM, EA 12/16/14 Sitagliptin* (Januvia*) 25 Mg Tablet, 25 MG PO DAILY 09/06/11 Levothyroxine Sodium (Levothroid) 25 Mcg Tablet, 25 MCG PO DAILY 04/06/11 Calcitriol* (Rocaltrol*) 0.25 Mcg Capsule, 0.25 MCG PO DAILY 04/06/11 Allergies Allergies: Coded Allergies: No Known Allergy (Verified , 01/27/15) PMhx/Soc Reviewed in chart. As per HPI. History of Surgery: Yes (pacemaker) Anesthesia Reaction: No Hx Neurological Disorder: No Hx Respiratory Disorders: No Hx Cardiac Disorders: Yes (pacemaker, high cholesterol) Hx Psychiatric Problems: No Hx Miscellaneous Medical Probl: Yes (DM, LEFT UPPER EXTREMITY, AV FISTULA, CELLULITUS) Hx Alcohol Use: No Hx Substance Use: No Hx Tobacco Use: No Smoking Status: Never smoker FmHx Reviewed in chart. Not relevant to presenting complaint. Physical Exam Vitals Vital Signs Date Time Temp Pulse Resp B/P Pulse Ox O2 Delivery O2 Flow Rate FiO2 07/26/16 17:07 97.5 65 20 113/57 99 Physical Exam Const: Alert, ill-appearing in no acute distress. Head: Atraumatic Eyes: Normal Conjunctiva ENT: Normal External Ears, Nose and Mouth. Neck: Full range of motion. Nontender. Resp: Diminished at the bases but otherwise clear to auscultation bilaterally Cardio: Regular rate and rhythm, no murmurs Abd: Soft, non tender, obese. non distended. Normal bowel sounds Skin: No petechiae or rashes Back: No midline or flank tenderness Ext: Left upper extremity: AV shunt with palpable bruit. Wound is healing well without erythema, induration or drainage. There is diffuse ecchymosis and swelling of the left upper extremity but no tenderness. Bilateral lower extremities have dressings which were not removed. Neur: Awake and alert Psych: Cooperative. Normal Mood and Affect Procedures/MDM DOCUMENTS REVIEWED: ED nurse, prior ED, prior records [employer]ISION [employer]IN-year-old male with history of coronary artery disease, hypertension, diabetes, dyslipidemia, obesity, peripheral vascular disease and end-stage renal disease status post AV fistula placement of the right arm with lower extremity ulcers and wounds. Left upper extremity AV fistula is doing well. There is ecchymosis of the extremity which is improving. No evidence of venous or arterial insufficiency. Patient was actually seen in the ED by the vascular surgeon who placed the fistula, Dr Duncan, who agrees with plan for discharge and outpatient follow-up Counseled patient and caregiver regarding diagnostic workup, diagnosis and need for followup. Understands to return to ED if symptoms recur, worsen or any other concerns. Departure Diagnosis: Primary Impression: Presence of surgically created AV shunt for hemodialysis Additional Impressions: Left upper extremity swelling End stage renal disease Diabetes mellitus type 2 in obese Hypertension Hypertension type: essential hypertension Qualified Code: I10 - Essential hypertension History of coronary artery disease Condition: BUFFY Ace MD Jul 26, 2016 21:27
[2016-07-26 22:11] VITALS: BP 106/61; PULSE 78; RESP 20; TEMP 97.6
== END 2016-07-26 22:14 | disposition home or self-care (01) ==
LOC: E/R 16:54
DX: T82.49XA Other complication of vascular dialysis catheter, initial encounter (principal); I12.0 Hypertensive chronic kidney disease with stage 5 chronic kidney disease or end stage renal disease; N18.6 End stage renal disease; I25.10 Atherosclerotic heart disease of native coronary artery without angina pectoris; E11.9 Type 2 diabetes mellitus without complications; E66.9 Obesity, unspecified; Y82.8 Other medical devices associated with adverse incidents; Z99.2 Dependence on renal dialysis; Z79.4 Long term (current) use of insulin; Z79.84 Long term (current) use of oral hypoglycemic drugs; Z79.01 Long term (current) use of anticoagulants; Z79.82 Long term (current) use of aspirin
CPT/HCPCS: 99282